=== PATIENT | male | born 1960 | race Caucasian/White ===

== ENCOUNTER 2017-12-17 08:31 | Day surgery (SDC) | payer OTHER ==
[2017-12-12 12:23] VITALS: BMI 28.5
[~2017-12-17 08:31] MED LIST: LACTATED RINGERS 1,000 ML IV SCH; MOXIFLOXACIN HCL 0.5% DROPS 3 ML BTL OP ONE; TETRACAINE 0.5% OPHTH (PF) DROPS 4 ML BTL OP ONE; TIMOLOL 0.5% OPHTH DROPS 5 ML BTL OP ONE
[2017-12-17] MEDS: CYCLOPENTOLATE 1% OPHTH SOLN 2 ML BTL OP ONE ×3 (09:50→10:03)
[2017-12-17] MEDS: PHENYLEPHRINE 2.5% OPHTH DRP 2ML OP NR ×3 (09:54→10:06)
[2017-12-17 10:01] VITALS: TEMP 98
[2017-12-17] MEDS ORDERED: LIDOCAINE 1% (PF) 10MG/ML VIAL SQ ONE (10:57)
[2017-12-17] MEDS ORDERED: BALANCED SALT IRRIG SOLN COMB2 15 ML IRRIG.SOLN INTRAOCULA ONE (10:57)
[2017-12-17] MEDS ORDERED: DUOVISC KIT (GREEN BOX) INTRAOCULA ONE (10:57)
[2017-12-17] MEDS ORDERED: EPINEPHrine (PF) 0.3 ML in BALANCED SALT IRRIG SOLN COMB2 500 ML IRRIGATION ONE (10:58)
[2017-12-17] MEDS ORDERED: fentaNYL (PF) 50 MCG/ML 2 ML AMP ONE (11:01)
[2017-12-17] MEDS ORDERED: MIDAZOLAM 2 MG/2 ML VIAL ONE (11:01)
[2017-12-17] MEDS ORDERED: TRIAMCINOLONE ACETONIDE (PF) 40 MG/ML 1ML VIAL INTRAOCULA ONE (11:21)
--- NOTE | 2017-12-17 11:34 | P.OP ---
Date of Procedure: 12/17/17 Preoperative Diagnosis: NA & posterior polar cataract Postoperative Diagnosis: same Procedure(s) Performed: PIOL, OS Implants: PCB00 21.00 Anesthesia: MAC Surgeon: César Azar Estimated Blood Loss (ml): 0 Pathology: none sent Condition: stable Disposition: same day Indications for Procedure: blurry vision Operative Findings: No complications
[2017-12-17 11:46] VITALS: RESP 18
[2017-12-17 12:00] VITALS: BP 149/91; PULSE 65
--- NOTE | 2017-12-17 19:44 | OP ---
OPERATIVE REPORT DATE OF SURGERY: 12/17/2017 PREOPERATIVE DIAGNOSIS:: Nuclear sclerosis and posterior polar cataract. POSTOPERATIVE DIAGNOSIS:: Same. OPERATION:: Clear cornea phacoemulsification of cataract and intraocular lens implant of the left eye. ESTIMATED BLOOD LOSS:: Zero. SPECIMEN TAKEN:: None. NARRATIVE:: After obtaining the appropriate consent, the patient was brought to the Operating Room where the patient was placed under cardiac monitoring and prepped and draped in the usual sterile manner. At the 5 o'clock position, a 15 degree super sharp blade was used to create a paracentesis followed by instillation of 1% Xylocaine MPF 50:50 mix with BSS into the anterior chamber. This was followed by Duovisc to stabilize the anterior chamber. At the 3 o'clock position, a self-sealing corneal flap incision was created using 2.8 mm keshav keratome. A cystatome was used to initiate a continuous tear capsulorrhexis which was completed with the Utrata forceps. A Binkhorst cannula was used to hydrodissect the lens nucleus followed by hydrodelineation. Phacoemulsification of the lens was performed utilizing phacochop in 2.55 Seconds at 6% power. The remaining cortical material was removed using the irrigation aspiration mode followed by additional 1% Xylocaine MPF into the anterior chamber followed by viscoelastic to stabilize the capsular bag. An GONSALO PCB00 21.0-diopter posterior chamber lens was placed into the capsular bag without difficulty. The remaining viscoelastic material was removed from the anterior chamber with the irrigation/aspiration. Balanced salt solution was used to normalize the intraocular pressure. The incision was checked for watertight integrity. The patient then received two drops of 0.5% timolol followed by two drops Vigamox, was lightly patched and shielded in the usual manner. There were no complications from the procedure. The patient tolerated the procedure well and was returned to recovery in good condition. MMODL / IJN: [id number] /
== END 2017-12-17 12:09 | disposition home or self-care (01) ==
LOC: OR 08:31
PROVIDERS: ATTEND Ophthalmology
DX: H25.12 Age-related nuclear cataract, left eye (principal); H25.042 Posterior subcapsular polar age-related cataract, left eye; H52.03 Hypermetropia, bilateral; H52.4 Presbyopia; I10 Essential (primary) hypertension; E78.00 Pure hypercholesterolemia, unspecified; H91.91 Unspecified hearing loss, right ear; M19.90 Unspecified osteoarthritis, unspecified site; Z86.73 Personal history of transient ischemic attack (TIA), and cerebral infarction without residual deficits; Z79.899 Other long term (current) drug therapy; F17.210 Nicotine dependence, cigarettes, uncomplicated
CPT/HCPCS: 66984; C1780; J2250; J0171; J3010; J3300; J2001

== ENCOUNTER 2018-01-28 07:49 | Day surgery (SDC) | payer OTHER ==
[2018-01-26 09:24] VITALS: BMI 27.1
[~2018-01-28 07:49] MED LIST changes: -LACTATED RINGERS 1,000 ML IV SCH
[2018-01-28] MEDS: CYCLOPENTOLATE 1% OPHTH SOLN 2 ML BTL OP ONE ×3 (08:40→08:51)
[2018-01-28] MEDS: PHENYLEPHRINE 2.5% OPHTH DRP 2ML OP NR ×3 (08:42→08:55)
[2018-01-28 08:50] VITALS: RESP 16; TEMP 98.4
[2018-01-28] MEDS: LACTATED RINGERS 1,000 ML IV SCH ×2 (09:03→09:38)
[2018-01-28] MEDS ORDERED: fentaNYL (PF) 50 MCG/ML 2 ML AMP ONE (09:39)
[2018-01-28] MEDS ORDERED: MIDAZOLAM 2 MG/2 ML VIAL ONE (09:39)
[2018-01-28] MEDS ORDERED: methylPREDNISolone SOD SUCCI 125 MG/2 ML VIAL ONE (09:39)
[2018-01-28] MEDS ORDERED: EPINEPHrine (PF) 0.3 ML in BALANCED SALT IRRIG SOLN COMB2 500 ML IRRIGATION ONE (09:49)
[2018-01-28] MEDS ORDERED: DUOVISC KIT (GREEN BOX) INTRAOCULA ONE (09:52)
[2018-01-28] MEDS ORDERED: BALANCED SALT IRRIG SOLN COMB2 15 ML IRRIG.SOLN IRRIGATION ONE (09:52)
[2018-01-28] MEDS ORDERED: CHONDROITIN-SOD HYALURONATE 1 EACH SYRINGE (0.75 ML) INTRAOCULA ONE (09:53)
[2018-01-28] MEDS ORDERED: LIDOCAINE 1% (PF) 10MG/ML VIAL MISCELLANE ONE (09:53)
[2018-01-28] MEDS ORDERED: TRIAMCINOLONE ACETONIDE (PF) 40 MG/ML 1ML VIAL INTRAOCULA ONE (10:09)
[2018-01-28] MEDS ORDERED: ACETYLCHOLINE CHLORIDE 10 MG/ML 2 ML KIT INTRAOCULA ONE (10:09)
[2018-01-28] MEDS ORDERED: HYALURONATE SODIUM INTRAOCULAR 1 EACH SYRINGE (12MG/ML) INTRAOCULA ONE (10:16)
[2018-01-28] MEDS ORDERED: FLUORESCEIN STRIPS 1 MG STRIP RIGHT EYE ONE (10:45)
--- NOTE | 2018-01-28 10:50 | P.OP ---
Date of Procedure: 01/28/18 Preoperative Diagnosis: post polar cataract right Postoperative Diagnosis: same with vitrectomy Procedure(s) Performed: PIOL and vitrectomy right Implants: [id number] Anesthesia: MAC Surgeon: César Azar Estimated Blood Loss (ml): 0 Pathology: none sent Condition: stable Disposition: same day Indications for Procedure: blurry vision Operative Findings: ruptured PC and vitrectomy to remove loose vitreous, lens particles inferior, will need retina to correct.
[2018-01-28 11:31] VITALS: BP 165/96; PULSE 61
--- NOTE | 2018-01-29 08:30 | OP ---
OPERATIVE REPORT DATE OF SURGERY: 01/28/2018. PROCEDURE: Phacoemulsification of cataract and intraocular lens implant of the right eye. PREOPERATIVE DIAGNOSIS: Posterior polar cataract with nuclear sclerosis. POSTOPERATIVE DIAGNOSIS: Posterior polar cataract with nuclear sclerosis with posterior capsular rent. SURGEON: Dr. César Azar. ANESTHESIA: Topical. ESTIMATED BLOOD LOSS: None. SPECIMEN TAKEN: None. NARRATIVE: After obtaining the appropriate consent, the patient was brought to the operating room there he was placed on cardiac monitoring, prepped and draped in the usual sterile manner. He was approached from his right temporal side and at the 11 o'clock position an MVR blade was used to create a paracentesis port. Through this opening 1% Xylocaine MPF 50:50 mix with balanced salt solution was injected into the anterior chamber. This was followed by stabilization of the anterior chamber with Viscoat. At the 9 o'clock position, a 2.5 mm keratome was used to create a self-sealing corneal flap incision. Through this opening a cystotome was introduced to begin a continuous tear capsulorrhexis which was completed using the Utrata forceps. Hydrodissection and hydrodelineation of the lens was carefully accomplished using balanced salt solution. It appeared that the lens was freely mobile following the hydrodissection without any suspicion of capsular tear. Phacoemulsification instrument was introduced into the eye and phacoemulsification of the lens utilizing phaco chop was initialized. Approximately 50% [address] way through the removal of the nuclear material, it was noted that there was marked laxity of the lens within the capsular bag appearing at about the 3 o'clock position. Attempts to salvage what became apparent as a horizontal rent in the posterior capsule was attempted using additional Viscoat to buoy the lens material into the anterior chamber. However, a large portion of the material did pass into the posterior chamber and became unreachable. At this point, Triesence was instilled into the front chamber of the eye to identify where the vitreous was and as it had been determined as expected that vitreous had entered into the anterior chamber. Therefore, a pars plana vitrectomy was then chosen to address the issue. At the 10 o'clock area approximately 3 mm posterior to the limbus, the MVR blade was used to create a sclerotomy into the posterior chamber of the eye after performing a small conjunctival takedown. Irrigating fluid was introduced through the temporal incision and a limited vitrectomy was performed within the vitreous cavity removing all remaining strands, which had presented themselves in the front chamber. A couple of attempts were made to retrieve the lost nuclear and cortical material with no success. Once the last of the vitreous had been removed from within the anterior chamber, vitrectomy was completed and the scleral incision was closed with 10-0 nylon along with closure of the conjunctiva at that point. Within the anterior chamber the eye remaining cortical material was carefully removed from between the leaflets of the anterior and posterior capsule. Again, a small amount of Tri essence was used to identify any remaining strands of vitreous of which there were none. Provisc was then used to stabilize the anterior chamber. The temporal incision was enlarged slightly and a [employer]ch [employer] Lomb LI61AO 20 diopter posterior chamber intraocular lens was then introduced into the anterior chamber and positioned with the haptics in the ciliary sulcus using a Sinskey hook. The lens optic was placed between the placed beneath the anterior capsule capsulorrhexis. Careful I and A was performed on the remaining viscoelastic within the anterior chamber and a temporal incision was closed with a single 10-0 nylon suture in an X fashion. The eye was brought to normal intraocular pressure through the paracentesis port with balanced salt solution. He received 2 drops of 0.5% timolol followed by 2 drops of Vigamox, was then lightly patched and shielded in the usual manner. There were no additional difficulties encountered during the procedure. He tolerated the procedure otherwise well and was returned to outpatient recovery in good condition. SARI / CURT: [id number] /
== END 2018-01-28 11:30 | disposition home or self-care (01) ==
LOC: OR 07:49
PROVIDERS: ATTEND Ophthalmology
DX: H26.8 Other specified cataract (principal); H52.4 Presbyopia; H52.03 Hypermetropia, bilateral; I10 Essential (primary) hypertension; E78.00 Pure hypercholesterolemia, unspecified; K21.9 Gastro-esophageal reflux disease without esophagitis; Z98.42 Cataract extraction status, left eye; G47.33 Obstructive sleep apnea (adult) (pediatric); Z96.1 Presence of intraocular lens; Z79.899 Other long term (current) drug therapy; Z86.73 Personal history of transient ischemic attack (TIA), and cerebral infarction without residual deficits; Z97.3 Presence of spectacles and contact lenses; F17.210 Nicotine dependence, cigarettes, uncomplicated
CPT/HCPCS: 66984; 67041; V2632; V2788; J2250; J2930; J0171; J3010; J3300; J2001

== ENCOUNTER → 2023-04-29 | Outpatient (CLI) | payer MEDICARE ==
--- NOTE | 2023-04-30 10:27 | CA ---
Transthoracic Echo Report Name: Andres Soares Age: 62 Gender: M : 1960 Exam Date: 04/29/2023 14:42 Exam Location: [facility] Ht (in): 71 Wt (lb): 220 Ordering Physician: Ervin May MD Attending/Referring Phys: [employer] Supervisor Brianda Contreras RDCS Procedure CPT: Indications: I51.7 Cardiomegaly Cardiac Hx: Hx of CABG and stents Technical Quality: Fair Contrast 1: Total Dose (mL): Contrast 2: Total Dose (mL): MEASUREMENTS (Male / Female) Normal Values 2D ECHO LV Diastolic Diameter PLAX 5.2 cm 4.2 - 5.9 / 3.9 - 5.3 cm LV Systolic Diameter PLAX 3.3 cm IVS Diastolic Thickness 1.4 cm 0.6 - 1.0 / 0.6 - 0.9 cm LVPW Diastolic Thickness 1.5 cm 0.6 - 1.0 / 0.6 - 0.9 cm LV Relative Wall Thickness 0.6 RV Internal Dim ED PLAX 3.3 cm LA Systolic Diameter LX 4.2 cm 3.0 - 4.0 / 2.7 - 3.8 cm LV Diastolic Volume MOD 4C 72.2 cm??? LV Systolic Volume MOD 4C 33.6 cm??? LV Ejection Fraction MOD 4C 53.4 % LV Cardiac Index MOD 4C 1413.8 cm???/min???m??? LV Diastolic Length 4C 7.3 cm LV Systolic Length 4C 6.5 cm LV Diastolic Volume MOD 2C 98.1 cm??? LV Systolic Volume MOD 2C 43.7 cm??? LV Ejection Fraction MOD 2C 55.4 % LV Cardiac Index MOD 2C 1996.9 cm???/min???m??? LV Diastolic Length 2C 6.9 cm LV Systolic Length 2C 6.9 cm LA Volume 73.3 cm??? 18 - 58 / 22 - 52 cm??? M-MODE Aortic Root Diameter MM 3.7 cm MV E Point Septal Separation 1.1 cm AV Cusp Separation MM 2.5 cm DOPPLER AV Peak Velocity 162.9 cm/s AV Peak Gradient 10.6 mmHg MV Area PHT 4.0 cm??? Mitral E Point Velocity 105.5 cm/s Mitral A Point Velocity 114.9 cm/s Mitral E to A Ratio 0.9 MV Deceleration Time 188.4 ms MV E' Velocity 9.4 cm/s Mitral E to MV E' Ratio 11.2 FINDINGS Left Ventricle Left ventricular ejection fraction is estimated at 55 %. Left ventricular cavity size normal. Normal left ventricular wall motion. Moderate concentric left ventricular hypertrophy. Right Ventricle Mild right ventricular dilatation. Unable to estimate the right ventricular systolic pressure. Right Atrium Normal right atrial size. Left Atrium Mildly increased left atrial diameter. Moderately increased left atrial volume. Mildly increased left atrial area. Mitral Valve Structurally normal mitral valve. Trace mitral regurgitation. Aortic Valve Trileaflet aortic valve. No aortic valve stenosis or regurgitation. Tricuspid Valve Structurally normal tricuspid valve. No tricuspid regurgitation. Pulmonic Valve Pulmonic valve not well visualized. No pulmonic regurgitation. Pericardium Normal pericardium. No pericardial effusion. Aorta Normal size aortic root and proximal ascending aorta. CONCLUSIONS Normal LV size and systolic function with [id number] concentric LVH. No significant abnormality in the Doppler exam. No pericardial effusion Previewed by: Dr. Olive Murphy MD (Electronically Signed) Final Date: 30 April 2023 10:26
== END | disposition home or self-care (01) ==
LOC: RADECHMAIN 14:33
PROVIDERS: ATTEND Family Medicine
DX: I51.7 Cardiomegaly (principal)
CPT/HCPCS: 93306

== ENCOUNTER 2023-05-30 13:00 | Emergency (ER) | payer MEDICARE ==
[2023-05-30 13:51] VITALS: RESP 18
--- NOTE | 2023-05-30 14:21 | ED ---
Lower Extremity Injury HPI - General Chief Complaint: Extremity Injury, Lower Stated Complaint: Cellulitis Time Seen by Provider: 05/30/23 14:00 Source: patient, RN notes reviewed Mode of arrival: ambulatory Limitations: no limitations - History of Present Illness Initial Comments: 62-year-old male presents emergency Department from urgent care to complaint of bilateral lower extremity cellulitis. Patient states that his been a recurrent issue. Patient states that he has had ongoing swelling. Patient was seen at urgent care a few weeks ago who told he had pneumonia and enlarged heart. He was sent for an outpatient echocardiogram. He denies any chest pain currently. He doesn't is a known diabetic on metformin. Patient denies any fevers or c hills denies any significant pain of his lower extremities. - Related Data Home Medications Medication Instructions Recorded Confirmed Bisoprolol-Hctz 10-6.25 mg [Ziac 1 tab PO DAILY 12/12/17 05/30/23 10-6.25] Citalopram Hydrobromide [CeleXA] 20 mg PO DAILY 05/30/23 05/30/23 Furosemide [Lasix] 20 mg PO BID 05/30/23 05/30/23 Losartan Potassium 50 mg PO DAILY 05/30/23 05/30/23 Potassium Chloride ER [K-Dur 20] 20 meq PO DAILY 05/30/23 05/30/23 Rosuvastatin Calcium 5 mg PO DAILY 05/30/23 05/30/23 Sildenafil Citrate [Sildenafil] 20 mg PO DAILY PRN 05/30/23 05/30/23 metFORMIN HCL [Glucophage] 500 mg PO PC-BID 05/30/23 05/30/23 Previous Rx's Medication Instructions Recorded Cephalexin [Keflex] 500 mg PO Q6HR #40 cap 05/30/23 Allergies Allergy/AdvReac Type Severity Reaction Status Date / Time No Known Allergies Allergy Verified 05/30/23 14:56 Review of Systems ROS Statement: Those systems with pertinent positive or pertinent negative responses have been documented in the HPI. ROS Other: All systems not noted in ROS Statement are negative. Past Medical History Past Medical History: Eye Disorder, Hypertension Additional Past Medical History / Comment(s): . History of Any Multi-Drug Resistant Organisms: None Reported Past Surgical History: Back Surgery Additional Past Surgical History / Comment(s): 3 back surgeries, left cataract Past Anesthesia/Blood Transfusion Reactions: Previous Problems w/ Anesthesia Additional Past Anesthesia/Blood Transfusion Reaction / Comment(s): diff. to wake up one time with back surgery Past Psychological History: Depression Smoking Status: Current every day smoker Past Alcohol Use History: Daily Past Drug Use History: None Reported - Past Family History Mother Family Medical History: No Reported History General Exam Limitations: no limitations General appearance: alert, in no apparent distress Head exam: Present: atraumatic, normocephalic, normal inspection Eye exam: Present: normal appearance, PERRL, EOMI. Absent: scleral icterus, conjunctival injection, periorbital swelling ENT exam: Present: normal exam, mucous membranes moist Neck exam: Present: normal inspection, full ROM. Absent: tenderness, meningismus, lymphadenopathy Respiratory exam: Present: normal lung sounds bilaterally. Absent: respiratory distress, wheezes, rales, rhonchi, stridor Cardiovascular Exam: Present: regular rate, normal rhythm, normal heart sounds. Absent: systolic murmur, diastolic murmur, rubs, gallop, clicks Extremities exam: Present: pedal edema (Bilateral with erythema noted, small areas of blistering), other (Lower extremity pulses equal bilaterally) Course Vital Signs 05/30/23 05/30/23 05/30/23 13:48 15:08 17:09 Temperature 98.2 F 98.4 F Pulse Rate 69 68 66 Respiratory 18 18 18 Rate Blood Pressure 113/66 131/85 145/89 O2 Sat by Pulse 95 96 94 L Oximetry Medical Decision Making - Medical Decision Making Was pt. sent in by a medical professional or institution (, PA, CAN DRAGGER, urgent care, hospital, or senior care...) When possible be specific @ -Urgent care Did you speak to anyone other than the patient for history (EMS, parent, family, police, friend...)? What history was obtained from this source @ -No Did you review nursing and triage notes (agree or disagree)? Why? @ -I reviewed and agree with nursing and triage notes Were old charts reviewed (outside hosp., previous admission, EMS record, old EKG, old radiological studies, urgent care reports/EKG's, senior care records)? Report findings @ -No old charts were reviewed Differential Diagnosis (chest pain, altered mental status, abdominal pain women, abdominal pain men, vaginal bleeding, weakness, fever, dyspnea, syncope, headache, dizziness, GI bleed, back pain, seizure, CVA, palpatations, mental health, musculoskeletal)? @ -Cellulitis, peripheral vascular disease, pedal edema EKG interpreted by me (3pts min.). @ -None X-rays interpreted by me (1pt min.). @ -None done CT interpreted by me (1pt min.). @ -None done U/S interpreted by me (1pt. min.). @ -None done What testing was considered but not performed or refused? (CT, X-rays, U/S, labs)? Why? @ -None What meds were considered but not given or refused? Why? @ -None Did you discuss the management of the patient with other professionals (professionals i.e. , PA, CAN DRAGGER, lab, RT, psych nurse, director social service, stack attendant, teacher, assurance officer, rn case manager)? Give summary @ -No Was smoking cessation discussed for >3mins.? @ -No Was critical care preformed (if so, how long)? @ -No Were there social determinants of health that impacted care today? How? (Homelessness, low income, unemployed, alcoholism, drug addiction, transportation, low edu. Level, literacy, decrease access to med. care, assisted, rehab)? @ -No Was there de-escalation of care discussed even if they declined (Discuss DNR or withdrawal of care, Hospice)? DNR status @ -No What co-morbidities impacted this encounter? (DM, HTN, Smoking, COPD, CAD, Cancer, CVA, ARF, Chemo, Hep., AIDS, mental health diagnosis, sleep apnea, morb id obesity)? @ -Hypertension Was patient admitted / discharged? Hospital course, mention meds given and route, prescriptions, significant lab abnormalities, going to OR and other pertinent info. @ -Discharge patient was given option to be admitted for cellulitis with MiraLAX acidosis. Patient states that he wants to attempt outpatient treatment I did recommend and follow-up in 24 hours and return for any worsening change in symptoms. Undiagnosed new problem with uncertain prognosis? @ -No Drug Therapy requiring intensive monitoring for toxicity (Heparin, Nitro, Insulin, Cardizem)? @ -No Were any procedures done? @ -No Diagnosis/symptom? @ -Cellulitis Acute, or Chronic, or Acute on Chronic? @ -Acute Uncomplicated (without systemic symptoms) or Complicated (systemic symptoms)? @ -Complicated Side effects of treatment? @ -No Exacerbation, Progression, or Severe Exacerbation? @ -No Poses a threat to life or bodily function? How? (Chest pain, [place], [place], pneumonia, PE, COPD, DKA, ARF, appy, cholecystitis, CVA, Diverticulitis, Homicidal, Suicidal, threat to staff... and all critical care pts) @ -No - Lab Data Result diagrams: 05/30/23 15:35 05/30/23 14:52 Lab Results 05/30/23 05/30/23 05/30/23 Range/Units 14:52 14:52 15:35 WBC 8.0 (3.8-10.6) k/uL RBC 5.00 (4.30-5.90) m/uL Hgb 17.7 H (13.0-17.5) gm/dL Hct 50.3 (39.0-53.0) % MCV 100.6 H (80.0-100.0) fL MCH 35.5 H (25.0-35.0) pg MCHC 35.3 (31.0-37.0) g/dL RDW 14.3 (11.5-15.5) % Plt Count 172 (150-450) k/uL MPV 8.2 Neutrophils % 64 % Lymphocytes % 23 % Monocytes % 8 % Eosinophils % 3 % Basophils % 1 % Neutrophils # 5.1 (1.3-7.7) k/uL Lymphocytes # 1.8 (1.0-4.8) k/uL Monocytes # 0.6 (0-1.0) k/uL Eosinophils # 0.3 (0-0.7) k/uL Basophils # 0.1 (0-0.2) k/uL Macrocytosis Slight Sodium 128 L (137-145) mmol/L Potassium 3.7 (3.5-5.1) mmol/L Chloride 83 L (98-107) mmol/L Carbon Dioxide 33 H (22-30) mmol/L Anion Gap 12 mmol/L BUN 19 (9-20) mg/dL Creatinine 1.53 H (0.66-1.25) mg/dL Est GFR (CKD-EPI)AfAm 56 (>60 ml/min/1.73 sqM) Est GFR (CKD-EPI)NonAf 48 (>60 ml/min/1.73 sqM) Glucose 98 (74-99) mg/dL Lactic Ac Sepsis Rflx Plasma Lactic Acid Danny 3.5 H* (0.7-2.0) mmol/L Calcium 9.6 (8.4-10.2) mg/dL Total Bilirubin 1.5 H (0.2-1.3) mg/dL AST 54 (17-59) U/L ALT 41 (4-49) U/L Alkaline Phosphatase 145 H (38-126) U/L NT-Pro-B Natriuret Pep 623 pg/mL Total Protein 7.6 (6.3-8.2) g/dL Albumin 4.4 (3.5-5.0) g/dL 05/30/23 Range/Units 16:15 WBC (3.8-10.6) k/uL RBC (4.30-5.90) m/uL Hgb (13.0-17.5) gm/dL Hct (39.0-53.0) % MCV (80.0-100.0) fL MCH (25.0-35.0) pg MCHC (31.0-37.0) g/dL RDW (11.5-15.5) % Plt Count (150-450) k/uL MPV Neutrophils % % Lymphocytes % % Monocytes % % Eosinophils % % Basophils % % Neutrophils # (1.3-7.7) k/uL Lymphocytes # (1.0-4.8) k/uL Monocytes # (0-1.0) k/uL Eosinophils # (0-0.7) k/uL Basophils # (0-0.2) k/uL Macrocytosis Sodium (137-145) mmol/L Potassium (3.5-5.1) mmol/L Chloride (98-107) mmol/L Carbon Dioxide (22-30) mmol/L Anion Gap mmol/L BUN (9-20) mg/dL Creatinine (0.66-1.25) mg/dL Est GFR (CKD-EPI)AfAm (>60 ml/min/1.73 sqM) Est GFR (CKD-EPI)NonAf (>60 ml/min/1.73 sqM) Glucose (74-99) mg/dL Lactic Ac Sepsis Rflx Y Plasma Lactic Acid Danny (0.7-2.0) mmol/L Calcium (8.4-10.2) mg/dL Total Bilirubin (0.2-1.3) mg/dL AST (17-59) U/L ALT (4-49) U/L Alkaline Phosphatase (38-126) U/L NT-Pro-B Natriuret Pep pg/mL Total Protein (6.3-8.2) g/dL Albumin (3.5-5.0) g/dL Disposition Clinical Impression: Bilateral lower leg cellulitis Disposition: HOME SELF-CARE Condition: Stable Instructions (If sedation given, give patient instructions): Cellulitis (ED) Additional Instructions: Please return to the Emergency Department if symptoms worsen or any other concerns. Prescriptions: Cephalexin [Keflex] 500 mg PO Q6HR #40 cap Is patient prescribed a controlled substance at d/c from ED?: No Referrals: Nonstaff,Physician [REFERRING] - 1-2 days Time of Disposition: 17:16
[2023-05-30 15:50] LABS: Basophils # (A) 0.1 k/uL (0-0.2); Basophils % (A) 1 %; Eosinophils # (A) 0.3 k/uL (0-0.7); Eosinophils % (A) 3 %; HCT 50.3 % (39.0-53.0); HGB 17.7 gm/dL (13.0-17.5); Lymphocytes # (A) 1.8 k/uL (1.0-4.8); Lymphocytes % (A) 23 %; MCH 35.5 pg (25.0-35.0); MCHC 35.3 g/dL (31.0-37.0); MCV 100.6 fL (80.0-100.0); Macrocytosis Slight; Mean Platelet Volume 8.2; Monocytes # (A) 0.6 k/uL (0-1.0); Monocytes % (A) 8 %; Neutrophils # (A) 5.1 k/uL (1.3-7.7); Neutrophils % (A) 64 %; Platelet Count 172 k/uL (150-450); RDW 14.3 % (11.5-15.5)
[2023-05-30 15:55] LABS: ALT 41 U/L (4-49); African American GFR (CKD) 56 (>60 ml/min/1.73 sqM); Albumin 4.4 g/dL (3.5-5.0); Anion Gap 12 mmol/L; Blood Urea Nitrogen 19 mg/dL (9-20); Calcium 9.6 mg/dL (8.4-10.2); Carbon Dioxide 33 mmol/L (22-30); Chloride 83 mmol/L (98-107); Glucose 98 mg/dL (74-99); Non-African American GFR(CKD) 48 (>60 ml/min/1.73 sqM); Sodium 128 mmol/L (137-145); Total Bilirubin 1.5 mg/dL (0.2-1.3); Total Protein 7.6 g/dL (6.3-8.2)
[2023-05-30 16:03] LABS: NT-Pro-B-Type Natriuretic Pept 623 pg/mL
[2023-05-30 16:21] LABS: AST 54 U/L (17-59); Alkaline Phosphatase 145 U/L (38-126); Potassium 3.7 mmol/L (3.5-5.1)
[2023-05-30] MEDS ORDERED: cefTRIAXone IN SWFI 1,000 MG/10 ML SYRINGE IVP STA (17:15)
[2023-05-30 17:21] VITALS: BP 145/89; PULSE 66; TEMP 98.4
== END 2023-05-30 18:05 | disposition home or self-care (01) ==
LOC: EC 13:00
DX: L03.116 Cellulitis of left lower limb (principal); L03.115 Cellulitis of right lower limb; I10 Essential (primary) hypertension; F32.A Depression, unspecified; F17.200 Nicotine dependence, unspecified, uncomplicated; Z79.899 Other long term (current) drug therapy
CPT/HCPCS: 96374 ×2; 99283 ×2; 36415; 83880; 80053; 83605; 85025; J0696

== ENCOUNTER 2023-07-06 14:50 | Inpatient (IN) | payer MEDICARE ==
--- NOTE | 2023-07-06 15:18 | ED ---
SOB HPI - General Chief Complaint: Dizziness Stated Complaint: shaky Time Seen by Provider: 07/06/23 15:03 Source: patient, RN notes reviewed Mode of arrival: wheelchair Limitations: no limitations - History of Present Illness Initial Comments: Patient is 62-year-old male presenting to the emergency room with complaints of shortness of breath, nonproductive cough, dry mouth and brain fog with intermittent dizziness all ongoing throughout the day today and progressively worsening. He is a pack-a-day smoker with a history of COPD. He states that he used to albuterol at home approximately 3 hours ago with a slight temporary improvement in symptoms. He reports that he has only been able to smoke a few cigarettes today. He denies any chest pain, abdominal pain, nausea, vomiting, diarrhea, headache, fevers or chills. His past medical history as listed below was reviewed and updated. - Related Data Home Medications Medication Instructions Recorded Confirmed Bisoprolol-Hctz 10-6.25 mg [Ziac 1 tab PO DAILY 12/12/17 05/30/23 10-6.25] Citalopram Hydrobromide [CeleXA] 20 mg PO DAILY 05/30/23 05/30/23 Furosemide [Lasix] 20 mg PO BID 05/30/23 05/30/23 Losartan Potassium 50 mg PO DAILY 05/30/23 05/30/23 Potassium Chloride ER [K-Dur 20] 20 meq PO DAILY 05/30/23 05/30/23 Rosuvastatin Calcium 5 mg PO DAILY 05/30/23 05/30/23 Sildenafil Citrate [Sildenafil] 20 mg PO DAILY PRN 05/30/23 05/30/23 metFORMIN HCL [Glucophage] 500 mg PO PC-BID 05/30/23 05/30/23 Previous Rx's Medication Instructions Recorded Cephalexin [Keflex] 500 mg PO Q6HR #40 cap 05/30/23 Allergies Allergy/AdvReac Type Severity Reaction Status Date / Time No Known Allergies Allergy Verified 07/06/23 14:59 Review of Systems ROS Statement: Those systems with pertinent positive or pertinent negative responses have been documented in the HPI. ROS Other: All systems not noted in ROS Statement are negative. Past Medical History Past Medical History: COPD, Diabetes Mellitus, Eye Disorder, Hyperlipidemia, Hypertension Additional Past Medical History / Comment(s): Bilateral lower extremity cellulitis. History of Any Multi-Drug Resistant Organisms: None Reported Past Surgical History: Back Surgery Additional Past Surgical History / Comment(s): 3 back surgeries, left cataract Past Anesthesia/Blood Transfusion Reactions: Previous Problems w/ Anesthesia Additional Past Anesthesia/Blood Transfusion Reaction / Comment(s): diff. to wake up one time with back surgery Past Psychological History: Depression Smoking Status: Current every day smoker Past Alcohol Use History: Daily Past Drug Use History: Marijuana - Past Family History Mother Family Medical History: No Reported History General Exam Limitations: no limitations General appearance: alert, in no apparent distress Head exam: Present: atraumatic, normocephalic, normal inspection Eye exam: Present: normal appearance, PERRL, EOMI. Absent: scleral icterus, conjunctival injection, periorbital swelling ENT exam: Present: mucous membranes dry Neck exam: Present: normal inspection, full ROM Respiratory exam: Present: wheezes (Expiratory), rales (Left lower lobe), decreased breath sounds. Absent: respiratory distress, rhonchi, stridor Cardiovascular Exam: Present: regular rate, normal rhythm, normal heart sounds. Absent: systolic murmur, diastolic murmur, rubs, gallop, clicks GI/Abdominal exam: Present: soft, normal bowel sounds, other (Rounded). Absent: distended, tenderness, guarding, rebound, rigid Extremities exam: Present: pedal edema (Bilateral lower extremity edema +2 with discolored lower extremities and multiple healed vascular ulcers) Back exam: Present: normal inspection Neurological exam: Present: alert, oriented X3, CN II-XII intact Psychiatric exam: Present: normal affect, normal mood Skin exam: Present: other (Discolored lower extremities at as indicated above) Course Vital Signs 07/06/23 07/06/23 07/06/23 14:55 15:40 16:37 Temperature 98.3 F Pulse Rate 73 73 84 Respiratory 20 18 Rate Blood Pressure 143/78 156/94 O2 Sat by Pulse 91 L 97 Oximetry 07/06/23 16:46 Temperature Pulse Rate 86 Respiratory Rate Blood Pressure O2 Sat by Pulse Oximetry Medical Decision Making - Medical Decision Making Was pt. sent in by a medical professional or institution (, PA, RADIATOR FITTER, urgent care, hospital, or halfway...) When possible be specific @ -No Did you speak to anyone other than the patient for history (EMS, parent, family, police, friend...)? What history was obtained from this source @ -No Did you review nursing and triage notes (agree or disagree)? Why? @ -I reviewed and agree with nursing and triage notes Were old charts reviewed (outside hosp., previous admission, EMS record, old EKG, old radiological studies, urgent care reports/EKG's, halfway records)? Report findings @ -Yes, prior records on file including echocardiogram 04/29/2023 reviewed. Differential Diagnosis (chest pain, altered mental status, abdominal pain women, abdominal pain men, vaginal bleeding, weakness, fever, dyspnea, syncope, headache, dizziness, GI bleed, back pain, seizure, CVA, palpatations, mental health, musculoskeletal)? @ -Differential Dyspnea: Coronary syndrome, arrhythmia, tamponade, asthma, COPD, pulmonary embolism, pneumonia, pneumothorax, pulmonary effusion, anaphylaxis, diabetic ketoacidosis, flailed chest, pulmonary contusion, diaphragmatic rupture, anemia, neuromuscular, this is not meant to be an all-inclusive list. EKG interpreted by me (3pts min.). @ -Sinus rhythm, ventricular rate 60 diabetes., ID interval 6 ms, QRS duration 90 ms, QT/QTC 429/449 ms, PRT axes 68, 139, 80 X-rays interpreted by me (1pt min.). @ -Chest x-ray two-view: Pulmonary vascular congestion without focal consolidation consistent with congestive heart failure. CT interpreted by me (1pt min.). @ -None done U/S interpreted by me (1pt. min.). @ -None done What testing was considered but not performed or refused? (CT, X-rays, U/S, labs)? Why? @ -None What meds were considered but not given or refused? Why? @ -None Did you discuss the management of the patient with other professionals ([place] , PA, RADIATOR FITTER, lab, RT, psych nurse, social professionals, reel winder, teacher, regulatory compliance officer, case manager specialist)? Give summary @ -No Was smoking cessation discussed for >3mins.? @ -I discussed smoking cessation for greater than 3 minutes. The risk of smoking were discussed with the patient including but not limited to risks of cancer, stroke, coronary artery disease and COPD. Also discussed with patient were multiple methods of quitting smoking. Lastly we discussed the financial cost of smoking. Was critical care preformed (if so, how long)? @ -No Were there social determinants of health that impacted care today? How? (Homelessness, low income, unemployed, alcoholism, drug addiction, transportation, low edu. Level, literacy, decrease access to med. care, fdc, rehab)? @ -Alcoholism Was there de-escalation of care discussed even if they declined (Discuss DNR or withdrawal of care, Hospice)? DNR status @ -No What co-morbidities impacted this encounter? (DM, HTN, Smoking, COPD, CAD, Cancer, CVA, ARF, Chemo, Hep., AIDS, mental health diagnosis, sleep apnea, morbid obesity)? @ -None Was patient admitted / discharged? Hospital course, mention meds given and rout e, prescriptions, significant lab abnormalities, going to OR and other pertinent info. @ -62-year-old male presenting to the emergency room with complaints of shortness of breath, nonproductive cough, dry mouth and brain fog with intermittent dizziness all ongoing throughout the day today and progressively worsening. He is a pack-a-day smoker with a history of COPD. He states that he used to albuterol at home approximately 3 hours ago with a slight temporary improvement in symptoms. Will start workup for dyspnea and brain 5 with EKG, chest x-ray, for Plavix for COVID, flu and RSV, CMP, CBC, d-dimer, proBNP, magnesium, lactic acid and troponin. 2 L nasal cannula applied with improved saturations to 96% on 2 L of from 87% on room air. Will give 1 albuterol treat ment now and monitor response will avoid steroids in the setting of diabetes. EKG shows sinus rhythm with left ventricular hypertrophy known on echocardiogram. Chest x-ray shows pulmonary vascular congestion consistent with congestive heart failure with correlating proBNP of 3330. Troponin negative. Alkaline phosphatase elevated at 142 AST and MALT normal with elevated total bilirubin at 1.5. Electrolyte derangement noted with a magnesium of 1.0, chloride of 79, carbon dioxide of 37, anion gap of 5, sodium of 121 and normal potassium. Lactic acid normal. Calcium normal. Viral swabbing for COVID, RSV and influenza all negative. After laboratories results further discussion with patient regarding alcohol intake revealed daily alcohol abuse of approximately 1 pint a day. Extended discussion regarding need for alcohol cessation with patient and brother at bedside. Advise recommended admission for congestive heart failure and electrolyte derangement. No evidence of alcohol withdrawals at this time however will admit for congestive heart failure and hyponatremia with [facility] protocol in addition to admission orders for congestive heart failure with Lasix 40 mg IV, consult to cardiology, gentle IV hydration for hyponatremia and 2 g of magnesium for hypomagnesemia. Will defer echocardiogram due to previously having in the last 6 months. 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 Will admit patient in stable condition to medical surgical unit for congestive heart failure and hyponatremia to EM services for further evaluation and treatment. Undiagnosed new problem with uncertain prognosis? @ -No Drug Therapy requiring intensive monitoring for toxicity (Heparin, Nitro, Insulin, Cardizem)? @ -No Were any procedures done? @ -No Diagnosis/symptom? @ -Congestive heart failure Acute, or Chronic, or Acute on Chronic? @ -Acute on chronic Uncomplicated (without systemic symptoms) or Complicated (systemic symptoms)? @ -Complicated Side effects of treatment? @ -No Exacerbation, Progression, or Severe Exacerbation? @ -No Poses a threat to life or bodily function? How? (Chest pain, USA, OR, pneumonia, PE, COPD, DKA, ARF, appy, cholecystitis, CVA, Diverticulitis, Homicidal, Suicidal, threat to staff... and all critical care pts) @ -Yes, at risk for worsening volume overload, respiratory failure and respiratory arrest. Diagnosis/symptom? @ -Hyponatremia Acute, or Chronic, or Acute on Chronic? @ -Acute Uncomplicated (without systemic symptoms) or Complicated (systemic symptoms)? @ -Uncomplicated Side effects of treatment? @ -none Exacerbation, Progression, or Severe Exacerbation] @ -no Poses a threat to life or bodily function? @ -Yes, at risk for further electrolyte derailment seizures, and . Case discussed with Dr. Howell. - Lab Data Result diagrams: 07/06/23 15:53 07/06/23 15:53 Lab Results 07/06/23 07/06/23 07/06/23 Range/Units 15:49 15:53 15:53 WBC 8.6 (3.8-10.6) k/uL RBC 4.82 (4.30-5.90) m/uL Hgb 16.7 (13.0-17.5) gm/dL Hct 49.3 (39.0-53.0) % MCV 102.3 H (80.0-100.0) fL MCH 34.7 (25.0-35.0) pg MCHC 34.0 (31.0-37.0) g/dL RDW 14.5 (11.5-15.5) % Plt Count 207 (150-450) k/uL MPV 8.0 Neutrophils % 67 % Lymphocytes % 22 % Monocytes % 6 % Eosinophils % 3 % Basophils % 1 % Neutrophils # 5.8 (1.3-7.7) k/uL Lymphocytes # 1.9 (1.0-4.8) k/uL Monocytes # 0.5 (0-1.0) k/uL Eosinophils # 0.2 (0-0.7) k/uL Basophils # 0.1 (0-0.2) k/uL Macrocytosis Slight PT 11.8 (9.0-12.0) sec INR 1.1 (<1.2) APTT 25.3 (22.0-30.0) sec D-Dimer 0.32 (<0.60) mg/L FEU Sodium (137-145) mmol/L Potassium (3.5-5.1) mmol/L Chloride (98-107) mmol/L Carbon Dioxide (22-30) mmol/L Anion Gap mmol/L BUN (9-20) mg/dL Creatinine (0.66-1.25) mg/dL Est GFR (CKD-EPI)AfAm (>60 ml/min/1.73 sqM) Est GFR (CKD-EPI)NonAf (>60 ml/min/1.73 sqM) Glucose (74-99) mg/dL Plasma Lactic Acid Danny (0.7-2.0) mmol/L Calcium (8.4-10.2) mg/dL Magnesium (1.6-2.3) mg/dL Total Bilirubin (0.2-1.3) mg/dL AST (17-59) U/L ALT (4-49) U/L Alkaline Phosphatase (38-126) U/L Troponin I (0.000-0.034) ng/mL NT-Pro-B Natriuret Pep pg/mL Total Protein (6.3-8.2) g/dL Albumin (3.5-5.0) g/dL Influenza Type A (PCR) Not Detected (Not Detectd) Influenza Type B (PCR) Not Detected (Not Detectd) RSV (PCR) Not Detected (Not Detectd) SARS-CoV-2 (PCR) Not Detected (Not Detectd) 07/06/23 07/06/23 07/06/23 Range/Units 15:53 15:53 15:53 WBC (3.8-10.6) k/uL RBC (4.30-5.90) m/uL Hgb (13.0-17.5) gm/dL Hct (39.0-53.0) % MCV (80.0-100.0) fL MCH (25.0-35.0) pg MCHC (31.0-37.0) g/dL RDW (11.5-15.5) % Plt Count (150-450) k/uL MPV Neutrophils % % Lymphocytes % % Monocytes % % Eosinophils % % Basophils % % Neutrophils # (1.3-7.7) k/uL Lymphocytes # (1.0-4.8) k/uL Monocytes # (0-1.0) k/uL Eosinophils # (0-0.7) k/uL Basophils # (0-0.2) k/uL Macrocytosis PT (9.0-12.0) sec INR (<1.2) APTT (22.0-30.0) sec D-Dimer (<0.60) mg/L FEU Sodium 121 L (137-145) mmol/L Potassium 4.2 (3.5-5.1) mmol/L Chloride 79 L (98-107) mmol/L Carbon Dioxide 37 H (22-30) mmol/L Anion Gap 5 mmol/L BUN 12 (9-20) mg/dL Creatinine 0.66 (0.66-1.25) mg/dL Est GFR (CKD-EPI)AfAm >90 (>60 ml/min/1.73 sqM) Est GFR (CKD-EPI)NonAf >90 (>60 ml/min/1.73 sqM) Glucose 94 (74-99) mg/dL Plasma Lactic Acid Danny 1.6 (0.7-2.0) mmol/L Calcium 8.5 (8.4-10.2) mg/dL Magnesium 1.0 L (1.6-2.3) mg/dL Total Bilirubin 1.5 H (0.2-1.3) mg/dL AST 54 (17-59) U/L ALT 29 (4-49) U/L Alkaline Phosphatase 142 H (38-126) U/L Troponin I <0.012 (0.000-0.034) ng/mL NT-Pro-B Natriuret Pep 3330 pg/mL Total Protein 6.9 (6.3-8.2) g/dL Albumin 4.2 (3.5-5.0) g/dL Influenza Type A (PCR) (Not Detectd) Influenza Type B (PCR) (Not Detectd) RSV (PCR) (Not Detectd) SARS-CoV-2 (PCR) (Not Detectd) - Radiology Data Radiology results: report reviewed, image reviewed Disposition Clinical Impression: Acute on chronic congestive heart failure, Hyponatremia, Hypomagnesemia, Alcohol abuse Disposition: ADMITTED IP TO THIS [facility] Condition: Stable Referrals: Nonstaff,Physician [REFERRING] - 1-2 days Time of Disposition: 17:28
[2023-07-06] MEDS ORDERED: ALBUTEROL NEBULIZED 2.5 MG/3 ML INHALATION STA (15:51)
[2023-07-06 16:07] LABS: Basophils # (A) 0.1 k/uL (0-0.2); Basophils % (A) 1 %; Eosinophils # (A) 0.2 k/uL (0-0.7); Eosinophils % (A) 3 %; HCT 49.3 % (39.0-53.0); HGB 16.7 gm/dL (13.0-17.5); Lymphocytes # (A) 1.9 k/uL (1.0-4.8); Lymphocytes % (A) 22 %; MCH 34.7 pg (25.0-35.0); MCV 102.3 fL (80.0-100.0); Macrocytosis Slight; Monocytes # (A) 0.5 k/uL (0-1.0); Monocytes % (A) 6 %; Neutrophils # (A) 5.8 k/uL (1.3-7.7); Neutrophils % (A) 67 %; Platelet Count 207 k/uL (150-450); RBC 4.82 m/uL (4.30-5.90); RDW 14.5 % (11.5-15.5); WBC 8.6 k/uL (3.8-10.6)
[2023-07-06 16:20] LABS: INR 1.1 (<1.2); Partial Thromboplastin Time 25.3 sec (22.0-30.0); Prothrombin Time 11.8 sec (9.0-12.0)
[2023-07-06 16:24] LABS: ALT 29 U/L (4-49); AST 54 U/L (17-59); African American GFR (CKD) >90 (>60 ml/min/1.73 sqM); Albumin 4.2 g/dL (3.5-5.0); Alkaline Phosphatase 142 U/L (38-126); Anion Gap 5 mmol/L; Blood Urea Nitrogen 12 mg/dL (9-20); Calcium 8.5 mg/dL (8.4-10.2); Carbon Dioxide 37 mmol/L (22-30); Chloride 79 mmol/L (98-107); Glucose 94 mg/dL (74-99); Non-African American GFR(CKD) >90 (>60 ml/min/1.73 sqM); Potassium 4.2 mmol/L (3.5-5.1); Sodium 121 mmol/L (137-145); Total Bilirubin 1.5 mg/dL (0.2-1.3); Total Protein 6.9 g/dL (6.3-8.2)
--- NOTE | 2023-07-06 16:31 | XR ---
EXAMINATION TYPE: XR chest 2V DATE OF EXAM: 07/06/2023 4:13 PM COMPARISON: None TECHNIQUE: XR chest 2V Frontal and lateral views of the chest. CLINICAL INDICATION:Male, 62 years old with history of difficulty breathing; FINDINGS: Lungs/Pleura: There is no evidence of pleural effusion, focal consolidation, or pneumothorax. Pulmonary vascularity: Pulmonary vascular congestion. Heart/mediastinum: Cardiomediastinal silhouette is enlarged and stable. Musculoskeletal: No acute osseous pathology. IMPRESSION: Cardiomegaly and mild pulmonary vascular congestion. Correlate with BNP for congestive heart failure.
[2023-07-06 16:32] LABS: NT-Pro-B-Type Natriuretic Pept 3330 pg/mL
[2023-07-06] MEDS ORDERED: ONDANSETRON 4 MG/2 ML VIAL IVP PRN (17:06)
[2023-07-06] MEDS ORDERED: NALOXONE 0.4 MG/ML 1 ML VIAL IV PRN (17:06)
[2023-07-06] MEDS ORDERED: ACETAMINOPHEN TAB 325 MG TAB PO PRN (17:06)
[2023-07-06] MEDS ORDERED: SODIUM CHLORIDE 0.9% 1,000 ML IV SCH (17:15)
[2023-07-06] MEDS ORDERED: THIAMINE 100 MG/ML 2 ML VIAL IM STA (17:21)
[2023-07-06] MEDS: MAGNESIUM SULFATE-D5W PMX 1 GM in DEXTROSE/WATER 1 100ML.BAG IVPB SCH ×2 (17:52→18:29)
[2023-07-06] MEDS: FUROSEMIDE 10 MG/ML 4 ML VIAL IV SCH (18:29)
[2023-07-06] MEDS ORDERED: traZODone HCL 50 MG TAB PO PRN (21:12)
--- NOTE | 2023-07-06 21:16 | P.HPIM ---
History of Present Illness H&P Date: 07/06/23 Chief Complaint: shortness of breath 62-year-old male presenting to the emergency room with complaints of shortness of breath, nonproductive cough, dry mouth and brain fog with intermittent dizziness all ongoing throughout the day today and progressively worsening. He is a pack-a-day smoker with a history of COPD. He states that he used to albuterol at home approximately 3 hours ago with a slight temporary improvement in symptoms. He reports that he has only been able to smoke a few cigarettes today. He denies any chest pain, abdominal pain, nausea, vomiting, diarrhea, headache, fevers or chills. His past medical history as listed below was reviewed and updated. Patient reports he drinks 1 pint of alcohol every Chest x-ray two-view: Pulmonary vascular congestion without focal consolidation consistent with congestive heart failure EKG revealed Sinus rhythm, ventricular rate 60 diabetes., NM interval 6 ms, QRS duration 90 ms, QT/QTC 429/449 ms, PRT axes 68, 139, 80 proBNP of 3330. Troponin negative. Alkaline phosphatase elevated at 142 AST and ALT normal with elevated total bilirubin at 1.5. Electrolyte derangement noted with a magnesium of 1.0, chloride of 79, carbon dioxide of 37, anion gap of 5, sodium of 121 and normal potassium. Lactic acid normal. Calcium normal. Viral swabbing for COVID, RSV and influenza all negative. In the ED patient received Lasix 40 mg IV, consult to cardiology, gentle IV hydration for hyponatremia and 2 g of magnesium for hypomagnesemia. Review of Systems REVIEW OF SYSTEMS: CONSTITUTIONAL: No fever, no malaise, no fatigue. HEENT: No recent visual problems or hearing problems. Denied any sore throat. CARDIOVASCULAR: No chest pain, orthopnea, PND, no palpitations, no syncope. PULMONARY: No shortness of breath, no cough, no hemoptysis. GASTROINTESTINAL: No diarrhea, no nausea, no vomiting, no abdominal pain. NEUROLOGICAL: No headaches, no weakness, no numbness. HEMATOLOGICAL: Denies any bleeding or petechiae. GENITOURINARY: Denies any burning micturition, frequency, or urgency. MUSCULOSKELETAL/RHEUMATOLOGICAL: Denies any joint pain, swelling, or any muscle pain. ENDOCRINE: Denies any polyuria or polydipsia. The rest of the 14-point review of systems is negative. Past Medical History Past Medical History: COPD, Diabetes Mellitus, Eye Disorder, Hyperlipidemia, Hypertension Additional Past Medical History / Comment(s): Bilateral lower extremity cellulitis. History of Any Multi-Drug Resistant Organisms: None Reported Past Surgical History: Back Surgery Additional Past Surgical History / Comment(s): 3 back surgeries, left cataract Past Anesthesia/Blood Transfusion Reactions: Previous Problems w/ Anesthesia Additional Past Anesthesia/Blood Transfusion Reaction / Comment(s): diff. to wake up one time with back surgery Past Psychological History: Depression Smoking Status: Current every day smoker Past Alcohol Use History: Daily Past Drug Use History: Marijuana - Past Family History Mother Family Medical History: No Reported History Medications and Allergies Home Medications Medication Instructions Recorded Confirmed Type Bisoprolol-Hctz 10-6.25 mg [Ziac 1 tab PO DAILY 12/12/17 07/06/23 History 10-6.25] Citalopram Hydrobromide [CeleXA] 20 mg PO DAILY 05/30/23 07/06/23 History Furosemide [Lasix] 20 mg PO BID 05/30/23 07/06/23 History Losartan Potassium 50 mg PO DAILY 05/30/23 07/06/23 History Potassium Chloride ER [K-Dur 20] 20 meq PO DAILY 05/30/23 07/06/23 History Rosuvastatin Calcium 5 mg PO DAILY 05/30/23 07/06/23 History Sildenafil Citrate [Sildenafil] 20 mg PO DAILY PRN 05/30/23 07/06/23 History metFORMIN HCL [Glucophage] 500 mg PO BID 05/30/23 07/06/23 History traZODone HCL [Desyrel] 50 mg PO HS PRN 07/06/23 07/06/23 History Allergies Allergy/AdvReac Type Severity Reaction Status Date / Time No Known Allergies Allergy Verified 07/06/23 17:47 Physical Exam Vitals: Vital Signs Temp Pulse Resp BP Pulse Ox 07/06/23 18:00 97.9 F 81 18 136/81 90 L 07/06/23 17:52 75 20 155/92 93 L 07/06/23 16:46 86 07/06/23 16:37 84 07/06/23 15:40 73 18 156/94 97 07/06/23 14:55 98.3 F 73 20 143/78 91 L Intake and Output 07/06/23 07/06/23 07/06/23 06:59 14:59 22:59 Other: Weight 97.522 kg General appearance: alert, in no apparent distress Head exam: Present: atraumatic, normocephalic, normal inspection Eye exam: Present: normal appearance, PERRL, EOMI. Absent: scleral icterus, conjunctival injection, periorbital swelling ENT exam: Present: mucous membranes dry Neck exam: Present: normal inspection, full ROM Respiratory exam: Present: wheezes (Expiratory), rales (Left lower lobe), decreased breath sounds. Absent: respiratory distress, rhonchi, stridor Cardiovascular Exam: Present: regular rate, normal rhythm, normal heart sounds. Absent: systolic murmur, diastolic murmur, rubs, gallop, clicks GI/Abdominal exam: Present: soft, normal bowel sounds, other (Rounded). Absent: distended, tenderness, guarding, rebound, rigid Extremities exam: Present: pedal edema (Bilateral lower extremity edema +2 with discolored lower extremities and multiple healed vascular ulcers) Back exam: Present: normal inspection Neurological exam: Present: alert, oriented X3, CN II-XII intact Psychiatric exam: Present: normal affect, normal mood Skin exam: Present: other (Discolored lower extremities Results CBC & Chem 7: 07/06/23 15:53 07/06/23 15:53 Labs: Abnormal Lab Results - Last 24 Hours (Table) 07/06/23 07/06/23 Range/Units 15:53 15:53 MCV 102.3 H (80.0-100.0) fL Sodium 121 L (137-145) mmol/L Chloride 79 L (98-107) mmol/L Carbon Dioxide 37 H (22-30) mmol/L Magnesium 1.0 L (1.6-2.3) mg/dL Total Bilirubin 1.5 H (0.2-1.3) mg/dL Alkaline Phosphatase 142 H (38-126) U/L Assessment and Plan Assessment: 1. Acute exacerbation CHF - Chest x-ray reveals pulmonary vascular congestion consistent with CHF; BNP is elevated at 3330; patient received Lasix 40 mg IV 1 in ED - We will continue with Lasix 40 mg IV every 12 hours; monitor strict USHA's, daily weights; low-salt and fluid restricted diet - Patient had echocardiogram completed within the past 6 months; we will hold off on repeating until patient is evaluated by cardiology - Consult cardiology for further recommendations 2. Hyponatremia; likely related to fluid overload; continue with Lasix 40 mg IV every 12 hours; fluid restriction; monitor electrolytes closely 3. Hypomagnesemia; likely related to alcohol abuse; a pigmented in ED; we will monitor magnesium levels and supplement as needed 4. Chronic alcohol abuse; concern for withdrawal; patient has been placed on CIWA protocol with Ativan; thiamine 100 mg daily; counseling done and need for cessation 5. Hypertension; losartan 50 mg daily; Ziac 106 0.25 mg daily 6. Diabetes mellitus type 2; metformin 500 mg twice a day which will be placed on hold while inpatient; monitor Accu-Cheks before meals and at bedtime with insulin sliding scale 7. Hyperlipidemia; Crestor 5 mg daily 8. Depression; Celexa 20 mg daily; trazodone 51 g. Daily at bedtime DVT prophylaxis; SCDs/subcu heparin CODE STATUS; full code
[2023-07-06] MEDS: HEPARIN SODIUM,PORCINE 5,000 UNIT/ML 1 ML VIAL SQ SCH (23:19)
[2023-07-07 06:27] LABS: Glucose,Whole Blood 124 mg/dL (70-110)
[2023-07-07] MEDS: INSULIN ASPART (NovoLOG) 100 UNIT/ML VIAL SQ SCH ×4 (06:28→20:48)
[2023-07-07] MEDS: FUROSEMIDE 10 MG/ML 4 ML VIAL IV SCH ×2 (06:30→16:32)
[2023-07-07] MEDS: LOSARTAN 50 MG TAB PO SCH (08:52)
[2023-07-07] MEDS: CITALOPRAM HYDROBROMIDE 20 MG TAB PO SCH (08:52)
[2023-07-07] MEDS: HEPARIN SODIUM,PORCINE 5,000 UNIT/ML 1 ML VIAL SQ SCH ×3 (08:52→23:20)
[2023-07-07] MEDS: POTASSIUM CHLORIDE ER 20 MEQ TAB.ER PO SCH (08:53)
[2023-07-07] MEDS: THIAMINE 100 MG TAB PO SCH (08:53)
[2023-07-07] MEDS ORDERED: ATORVASTATIN 10 MG TAB PO SCH (09:00)
[2023-07-07] MEDS: BISOPROLOL-HCTZ 10-6.25 MG 1 EACH TAB PO SCH (09:05)
[2023-07-07 11:27] LABS: Glucose,Whole Blood 118 mg/dL (70-110)
--- NOTE | 2023-07-07 12:49 | P.CRDCN ---
History of Present Illness Consult date: 07/07/23 History of present illness: History of Present Illness: The patient is a 62-year-old male with no prior history of CAD, history of hypertension and hyperlipidemia who presented with symptoms of dizziness and progressive dyspnea. The patient smokes about a pack and a half a day and drinks 1 pint of alcohol daily. For the last few weeks he's been complaining of progressive dyspnea on exertion with limited physical activity. He has a history of cellulitis and has noted worsening in the redness and the edema. He checked his O2 saturation at home and it was slow. He denies any symptoms of chest discomfort or any prior history of myocardial infarction or congestive heart failure. He does not follow with cardiology. He has no history of PND or orthopnea. He denies any palpitations or documented arrhythmia. He has no syncope. His course factors remarkable for hypertension, hyperlipidemia, diabetes mellitus, chronic tobacco use and smoking. Medications: Trazodone, Lasix 20 mg twice a day, Glucophage 500 mg twice a day, rosuvastatin 5 mg daily, Celexa, bisoprolol HCT 106 0.25 mg daily Review of Systems: Respiratory: Chronic dyspnea on exertion with cough and chronic tobacco use GI: No nausea or vomiting . No history of peptic ulcer disease. No recent GI bleed. : No hematuria or dysuria. Nervous System: No stroke or seizure. Physical Examination: 62-year-old male, alert and oriented no apparent distress ,Blood pressure 120/70, Heart rate 60 Head: Normocephalic. Eyes: Sclerae nonicteric. Neck: Good carotid upstroke, no bruit, no jugular venous distention. Lungs: Severe decrease in the air exchange bilaterally with scattered wheezes Heart: Regular rate and rhythm, S1-S2, no S3, no rub. No murmur. Abdomen: Soft nontender, positive bowel sounds no organomegaly. Extremities: Trace to 1+ edema, intact distal pulses. Bilateral erythema Labs: Hemoglobin 16.7, WBC 8.6, BUN 12, creatinine 0.66. Troponin less than 0.012, NT proBNP 3330. Chest x-ray was congestion EKG: Sinus mechanism with T-wave inversion in the anterolateral leads, cannot exclude anterior wall ischemia. Impression: 1. Progressive dyspnea with probable exacerbation of COPD, possible CHF, ejection fraction unknown 2. Abnormal EKG, rule out ischemic heart disease in a patient with multiple risk factors 3. History of chronic tobacco use 4. History of hypertension 5. History of diabetes 6. History of hyperlipidemia 7. History of cellulitis 8. Chronic alcohol intake Plan: 1. IV diuretics 2. Obtain an echocardiogram with Doppler 3. Pulmonary consultation 4. Treatment of cellulitis 5. Depending on his progress the patient will require further cardiac evaluation once stabilized either by cardiac catheterization or stress testing 6. Alcohol and tobacco cessation 7. Follow renal functions 8. Depending on his progress further recommendations will be made 9. Thank you for this consult we will follow with you Past Medical History Past Medical History: Heart Failure, COPD, Diabetes Mellitus, Eye Disorder, Hyperlipidemia, Hypertension Additional Past Medical History / Comment(s): Bilateral lower extremity cellulitis. History of Any Multi-Drug Resistant Organisms: None Reported Past Surgical History: Back Surgery Additional Past Surgical History / Comment(s): 3 back surgeries, left and right cataract Past Anesthesia/Blood Transfusion Reactions: Previous Problems w/ Anesthesia Additional Past Anesthesia/Blood Transfusion Reaction / Comment(s): diff. to wake up one time with back surgery Past Psychological History: Depression Smoking Status: Current every day smoker Past Alcohol Use History: Daily Additional Past Alcohol Use History / Comment(s): has smoked 1ppd for about 20 years; quit for 4 weeks in Nov. but started again Past Drug Use History: Marijuana - Past Family History Mother Family Medical History: No Reported History Medications and Allergies Home Medications Medication Instructions Recorded Confirmed Type Bisoprolol-Hctz 10-6.25 mg [Ziac 1 tab PO DAILY 12/12/17 07/06/23 History 10-6.25] Citalopram Hydrobromide [CeleXA] 20 mg PO DAILY 05/30/23 07/06/23 History Furosemide [Lasix] 20 mg PO BID 05/30/23 07/06/23 History Losartan Potassium 50 mg PO DAILY 05/30/23 07/06/23 History Potassium Chloride ER [K-Dur 20] 20 meq PO DAILY 05/30/23 07/06/23 History Rosuvastatin Calcium 5 mg PO DAILY 05/30/23 07/06/23 History Sildenafil Citrate [Sildenafil] 20 mg PO DAILY PRN 05/30/23 07/06/23 History metFORMIN HCL [Glucophage] 500 mg PO BID 05/30/23 07/06/23 History traZODone HCL [Desyrel] 50 mg PO HS PRN 07/06/23 07/06/23 History Allergies Allergy/AdvReac Type Severity Reaction Status Date / Time No Known Allergies Allergy Verified 07/06/23 17:47 Physical Exam Vitals: Vital Signs Temp Pulse Pulse Resp BP BP Pulse Ox 07/07/23 08:00 96 07/07/23 07:10 98.6 F 60 17 121/71 94 L 07/07/23 02:00 98.1 F 60 111/67 97 07/06/23 21:25 98.2 F 66 18 126/74 91 L 07/06/23 20:17 64 22 105/58 07/06/23 20:12 91 L 07/06/23 19:32 70 18 131/79 91 L 07/06/23 18:00 97.9 F 81 18 136/81 90 L 07/06/23 17:52 75 20 155/92 93 L 07/06/23 16:46 86 07/06/23 16:37 84 07/06/23 15:40 73 18 156/94 97 07/06/23 14:55 98.3 F 73 20 143/78 91 L Intake and Output 07/06/23 07/07/23 07/07/23 22:59 06:59 14:59 Output Total 800 Balance -800 Output: Urine 800 Other: # Voids 1 Weight 97.522 kg 95 kg Results 07/06/23 15:53 07/06/23 15:53 Cardiac Enzymes 07/06/23 07/06/23 Range/Units 15:53 15:53 AST 54 (17-59) U/L Troponin I <0.012 (0.000-0.034) ng/mL Coagulation 07/06/23 Range/Units 15:53 PT 11.8 (9.0-12.0) sec APTT 25.3 (22.0-30.0) sec CBC 07/06/23 Range/Units 15:53 WBC 8.6 (3.8-10.6) k/uL RBC 4.82 (4.30-5.90) m/uL Hgb 16.7 (13.0-17.5) gm/dL Hct 49.3 (39.0-53.0) % Plt Count 207 (150-450) k/uL Comprehensive Metabolic Panel 07/06/23 Range/Units 15:53 Sodium 121 L (137-145) mmol/L Potassium 4.2 (3.5-5.1) mmol/L Chloride 79 L (98-107) mmol/L Carbon Dioxide 37 H (22-30) mmol/L BUN 12 (9-20) mg/dL Creatinine 0.66 (0.66-1.25) mg/dL Glucose 94 (74-99) mg/dL Calcium 8.5 (8.4-10.2) mg/dL AST 54 (17-59) U/L ALT 29 (4-49) U/L Alkaline Phosphatase 142 H (38-126) U/L Total Protein 6.9 (6.3-8.2) g/dL Albumin 4.2 (3.5-5.0) g/dL Current Medications Generic Name Dose Route Start Last Admin Trade Name Freq PRN Reason Stop Dose Admin Acetaminophen 650 mg 07/06/23 17:06 Acetaminophen Tab 325 Mg Tab PO Q6HR PRN Mild Pain or Fever > 100.5 Atorvastatin Calcium 10 mg 07/07/23 09:00 07/07/23 08:53 Atorvastatin 10 Mg Tab PO 10 mg DAILY WALI Administration Bisoprolol Fumarate 1 each 07/07/23 09:00 07/07/23 09:05 Bisoprolol-Hctz 10-6.25 Mg 1 Each Tab PO Not Given DAILY WALI Citalopram Hydrobromide 20 mg 07/07/23 09:00 07/07/23 08:52 Citalopram Hydrobromide 20 Mg Tab PO 20 mg DAILY WALI Administration Furosemide 40 mg 07/06/23 18:00 07/07/23 06:30 Furosemide 10 Mg/Ml 4 Ml Vial IV 40 mg Q12H WALI Administration Heparin Sodium (Porcine) 5,000 unit 07/07/23 00:00 07/07/23 08:52 Heparin Sodium,Porcine 5,000 Unit/Ml 1 Ml Vial SQ 5,000 unit Q8HR WALI Administration Insulin Aspart 0 unit 07/07/23 07:30 07/07/23 11:58 Insulin Aspart (Novolog) 100 Unit/Ml Vial SQ 07/14/23 07:31 Not Given [facility] Protocol Losartan Potassium 50 mg 07/07/23 09:00 07/07/23 08:52 Losartan 50 Mg Tab PO 50 mg DAILY WALI Administration Naloxone HCl 0.2 mg 07/06/23 17:06 Naloxone 0.4 Mg/Ml 1 Ml Vial IV Q2M PRN Opioid Reversal Ondansetron HCl 4 mg 07/06/23 17:06 Ondansetron 4 Mg/2 Ml Vial IVP Q8HR PRN Nausea And Vomiting Potassium Chloride 20 meq 07/07/23 09:00 07/07/23 08:53 Potassium Chloride Er 20 Meq Tab.Er PO 20 meq DAILY WALI Administration Thiamine HCl 100 mg 07/07/23 09:00 07/07/23 08:53 Thiamine 100 Mg Tab PO 100 mg DAILY WALI Administration Trazodone HCl 50 mg 07/06/23 21:12 Trazodone Hcl 50 Mg Tab PO HS PRN Insomnia Intake and Output 07/06/23 07/07/23 07/07/23 22:59 06:59 14:59 Output Total 800 Balance -800 Output: Urine 800 Other: # Voids 1 Weight 97.522 kg 95 kg 07/06/23 15:53 07/06/23 15:53
[2023-07-07 13:52] LABS: Basophils % (A) 1 %; Eosinophils # (A) 0.1 k/uL (0-0.7); Eosinophils % (A) 2 %; HCT 49.7 % (39.0-53.0); HGB 16.7 gm/dL (13.0-17.5); Lymphocytes # (A) 1.1 k/uL (1.0-4.8); Lymphocytes % (A) 15 %; MCH 35.5 pg (25.0-35.0); MCHC 33.5 g/dL (31.0-37.0); MCV 105.8 fL (80.0-100.0); Macrocytosis Moderate; Mean Platelet Volume 8.2; Monocytes # (A) 0.5 k/uL (0-1.0); Monocytes % (A) 7 %; Neutrophils # (A) 5.2 k/uL (1.3-7.7); Neutrophils % (A) 75 %; Platelet Count 173 k/uL (150-450); RDW 14.7 % (11.5-15.5)
[2023-07-07] MEDS: ASPIRIN 81 MG PO SCH (13:55)
[2023-07-07 14:04] LABS: Magnesium 1.8 mg/dL (1.6-2.3)
[2023-07-07 14:05] LABS: Blood Urea Nitrogen 13 mg/dL (9-20); Chloride 86 mmol/L (98-107); Glucose 133 mg/dL (74-99); Potassium 3.8 mmol/L (3.5-5.1); Sodium 131 mmol/L (137-145)
[2023-07-07 14:06] LABS: African American GFR (CKD) >90 (>60 ml/min/1.73 sqM); Calcium 8.4 mg/dL (8.4-10.2); Non-African American GFR(CKD) >90 (>60 ml/min/1.73 sqM)
[2023-07-07 14:12] LABS: Anion Gap 4 mmol/L
[2023-07-07 14:16] LABS: Carbon Dioxide 41 mmol/L (22-30)
[2023-07-07] MEDS ORDERED: Magnesium Replacement Protocol 1 EACH MISC MISCELLANE PRN (15:24)
[2023-07-07] MEDS ORDERED: MAGNESIUM SULFATE-D5W PMX 1 GM in DEXTROSE/WATER 1 100ML.BAG IVPB ONE (15:24)
[2023-07-07 16:15] LABS: Glucose,Whole Blood 117 mg/dL (70-110)
[2023-07-07] MEDS: ALBUTEROL NEBULIZED 2.5 MG/3 ML INHALATION SCH ×2 (16:44→21:11)
[2023-07-07 19:27] LABS: Glucose,Whole Blood 159 mg/dL (70-110)
[2023-07-07] MEDS: SYMBICORT 160-4.5 MCG INHALER INHALATION SCH (21:11)
--- NOTE | 2023-07-07 22:13 | P.CNPUL ---
History of Present Illness Consult date: 07/07/23 Requesting physician: Sunil Hou Reason for consult: COPD Chief complaint: Shortness of breath and dry cough History of present illness: This is a 62-year-old white male with no previous history of documented COPD, however the patient had at least a 49-qmcr-enog smoking history, and for the last few months the patient has been complaining of shortness of breath on exertion and intermittent episodes of lightheadedness and dizziness. Patient has a dry cough, but no fever, no chills, no hemoptysis, no chest pain. Patient is also known to drink alcohol almost on a daily basis, patient is on disability mostly because of his active issues and have multiple surgeries on his low back. Patient also had previous history of cellulitis and chronic venous stasis changes in lower extremities. Never seen a manager critical care unit in the past. Patient was brought into the ER, and he had no chest pain, no orthopnea, no PND, seen by cardiology on consultation, his chest x-ray showed cardiomegaly and mild pulmonary vascular congestion, BNP was elevated at 3330, patient was admitted and this consult was initiated. Looking at his labs, the patient was noted to have a bicarb of 41 which is indicative of chronic metabolic compensation for most likely a picture of chronic respiratory acidosis related to underlying COPD. Considering his smoking history and considering his symptoms, this consult was initiated. Again the patient never saw a manager critical care unit never been on inhalers in the past EKG on this admission showed incomplete right bundle branch block, and right ventricular hypertrophy with ST and T wave changes with prominent R in V1. Patient denies any wheezing denies any fever or chill denies any hemoptysis. Review of Systems Constitutional: Negative HEENT: Negative Pulmonary: As noted in HPI Cardiac: As noted in HPI GI: Negative Genitourinary: Negative Musculoskeletal: Negative Hematologic: Negative Psychiatric: Negative Endocrine: Negative Neurologic: Negative Past Medical History Past Medical History: Heart Failure, COPD, Diabetes Mellitus, Eye Disorder, Hyperlipidemia, Hypertension Additional Past Medical History / Comment(s): Bilateral lower extremity cellulitis. History of Any Multi-Drug Resistant Organisms: None Reported Past Surgical History: Back Surgery Additional Past Surgical History / Comment(s): 3 back surgeries, left and right cataract Past Anesthesia/Blood Transfusion Reactions: Previous Problems w/ Anesthesia Additional Past Anesthesia/Blood Transfusion Reaction / Comment(s): diff. to wake up one time with back surgery Past Psychological History: Depression Smoking Status: Current every day smoker Past Alcohol Use History: Daily Additional Past Alcohol Use History / Comment(s): has smoked 1ppd for about 20 years; quit for 4 weeks in Nov. but started again Past Drug Use History: Marijuana - Past Family History Mother Family Medical History: No Reported History Medications and Allergies Home Medications Medication Instructions Recorded Confirmed Type Bisoprolol-Hctz 10-6.25 mg [Ziac 1 tab PO DAILY 12/12/17 07/06/23 History 10-6.25] Citalopram Hydrobromide [CeleXA] 20 mg PO DAILY 05/30/23 07/06/23 History Furosemide [Lasix] 20 mg PO BID 05/30/23 07/06/23 History Losartan Potassium 50 mg PO DAILY 05/30/23 07/06/23 History Potassium Chloride ER [K-Dur 20] 20 meq PO DAILY 05/30/23 07/06/23 History Rosuvastatin Calcium 5 mg PO DAILY 05/30/23 07/06/23 History Sildenafil Citrate [Sildenafil] 20 mg PO DAILY PRN 05/30/23 07/06/23 History metFORMIN HCL [Glucophage] 500 mg PO BID 05/30/23 07/06/23 History traZODone HCL [Desyrel] 50 mg PO HS PRN 07/06/23 07/06/23 History Allergies Allergy/AdvReac Type Severity Reaction Status Date / Time No Known Allergies Allergy Verified 07/06/23 17:47 Physical Exam Vitals: Vital Signs Temp Pulse Pulse Resp BP Pulse Ox 07/07/23 21:22 76 07/07/23 21:11 76 07/07/23 19:33 98.6 F 72 18 103/65 94 L 07/07/23 16:54 84 07/07/23 16:44 80 07/07/23 13:52 97.4 F L 62 18 116/76 96 07/07/23 08:00 96 07/07/23 07:10 98.6 F 60 17 121/71 94 L 07/07/23 02:00 98.1 F 60 111/67 97 Intake and Output 07/07/23 07/07/23 07/07/23 06:59 14:59 22:59 Output Total 800 Balance -800 Output: Urine 800 Other: # Voids 1 4 Weight 95 kg Physical Exam: Revealed a 62-year-old white male in no distress very pleasant on room air Head: Atraumatic, normocephalic HEENT: [No neck masses.] [No thyromegaly.] [No JVD.] Chest: [Diminished breath sound bilaterally no crackles or rhonchi or wheezes Cardiac Exam: [Normal S1 and S2, no S3 gallop, 2/6 systolic murmur thought the precordium Abdomen: [Obese, Soft, nontender, no megaly, no rebound, no guarding, normal bowel sounds.] Extremities: [No clubbing, no edema, no cyanosis.] Neurological Exam: [No focal neurologic deficit.] Alert oriented 3 Psychiatric: Normal mood affect and normal mental status examination Skin: No rashes however the patient does have chronic venous stasis changes in lower extremities and evidence of previous cellulitis Results - Laboratory Findings CBC and BMP: 07/07/23 13:04 07/07/23 13:04 PT/INR, D-dimer PT 11.8 sec (9.0-12.0) 07/06/23 15:53 INR 1.1 (<1.2) 07/06/23 15:53 D-Dimer 0.32 mg/L FEU (<0.60) 07/06/23 15:53 Abnormal lab findings: Abnormal Labs 07/06/23 07/06/23 07/07/23 15:53 15:53 06:24 MCV 102.3 H MCH Sodium 121 L Chloride 79 L Carbon Dioxide 37 H Glucose POC Glucose (mg/dL) 124 H Magnesium 1.0 L Total Bilirubin 1.5 H Alkaline Phosphatase 142 H 07/07/23 07/07/23 07/07/23 11:25 13:04 13:04 MCV 105.8 H MCH 35.5 H Sodium 131 L Chloride 86 L Carbon Dioxide 41 H* Glucose 133 H POC Glucose (mg/dL) 118 H Magnesium Total Bilirubin Alkaline Phosphatase 07/07/23 07/07/23 16:14 19:26 MCV MCH Sodium Chloride Carbon Dioxide Glucose POC Glucose (mg/dL) 117 H 159 H Magnesium Total Bilirubin Alkaline Phosphatase - Diagnostic Findings Chest x-ray: image reviewed (As noted in HPI cardiomegaly and mild pulmonary vascular congestion) Assessment and Plan Assessment: Impression: Chronic shortness of breath, progressive, suspect underlying COPD, and possibly some mild component of congestive heart failure, could be systolic or diastolic in nature. Chronic cor pulmonale, suspect underlying pulmonary hypertension Chronic tobacco use Chronic alcohol use Type 2 diabetes without complications History of chronic recurrent cellulitis of lower extremities Dyslipidemia Benign essential hypertension Chronic low back pain Recommendation: Continue present treatment plan Start patient on bronchodilators including DuoNeb and Symbicort would not recommend methylprednisolone at this point. Order bedside PFT to be done in a.m. assess his FEV1 Cardiology is addressing his cardiac issues and echocardiogram is pending We will continue to follow. Patient will definitely need outpatient follow-up regarding his COPD and would have a full PFT on outpatient basis post discharge. Time with Patient: Greater than 30
--- NOTE | 2023-07-08 05:18 | P.PN ---
Subjective Progress Note Date: 07/07/23 62-year-old male presenting to the emergency room with complaints of shortness of breath, nonproductive cough, dry mouth and brain fog with intermittent dizziness all ongoing throughout the day today and progressively worsening. He is a pack-a-day smoker with a history of COPD. He states that he used to albuterol at home approximately 3 hours ago with a slight temporary improvement in symptoms. He reports that he has only been able to smoke a few cigarettes today. He denies any chest pain, abdominal pain, nausea, vomiting, diarrhea, headache, fevers or chills. His past medical history as listed below was reviewed and updated. Patient reports he drinks 1 pint of alcohol every Chest x-ray two-view: Pulmonary vascular congestion without focal consolidation consistent with congestive heart failure EKG revealed Sinus rhythm, ventricular rate 60 diabetes., SC interval 6 ms, QRS duration 90 ms, QT/QTC 429/449 ms, PRT axes 68, 139, 80 proBNP of 3330. Troponin negative. Alkaline phosphatase elevated at 142 AST and ALT normal with elevated total bilirubin at 1.5. Electrolyte derangement noted with a magnesium of 1.0, chloride of 79, carbon dioxide of 37, anion gap of 5, sodium of 121 and normal potassium. Lactic acid normal. Calcium normal. Viral swabbing for COVID, RSV and influenza all negative. In the ED patient received Lasix 40 mg IV, consult to cardiology, gentle IV hydration for hyponatremia and 2 g of magnesium for hypomagnesemia. 07/07/2023 Patient is seen in follow-up today continues to report shortness of breath and maintained on IV Lasix with cardiology following. 2-D echo is ordered and pending his chest x-ray showed pulmonary vascular congestion. Patient having features of COPD and will consult pulmonary and appreciate input and recommendations. Patient with a very faint slight expiratory wheeze noted at the bases will start albuterol nebulize treatments along with Symbicort. Patient admits to smoking at least 1 pack a day for many years. Patient sodium was low on admission and was given Lasix with improvement. Sodium is above 130 and mag was also replaced as initial magnesium was 1.0 awaiting repeat labs. BNP was 3300. Will follow-up with repeat labs. Patient is afebrile denies chest pain or palpitations. Patient tolerating diet with no reports of nausea vomiting noted. Review of systems: Constitutional: No reports of fatigue, fever, or chills Cardiovascular: No reports of chest pain or palpitations Respiratory: reports of shortness of breath and chronic cough GI: No reports of nausea, vomiting, or diarrhea : No reports of dysuria or retention Neurovascular: No reports of weakness or numbness All medications have been reviewed Physical exam: Gen: This is a 62-year-old male who is awake, alert and oriented 3, well-deve loped, well-nourished HEENT: Head is atraumatic, normocephalic. Pupils equal, round. Sclerae is anic teric. NECK: Supple. No JVD. No lymphadenopathy. No thyromegaly. LUNGS: Diminished breath sounds bilaterally with faint expiratory wheezes noted at the bases, scattered rhonchi. No intercostal retractions. HEART: Regular rate and rhythm. No murmur. ABDOMEN: Soft. Bowel sounds are present. Obese. No masses. No tenderness. EXTREMITIES: No pedal edema. No calf tenderness. NEUROLOGICAL: Patient is awake, alert and oriented x3. Cranial nerves 2 through 12 are grossly intact. Assessment: -Acute exacerbation CHF with unknown EF -Hyponatremia; likely related to fluid overload; improved with IV Lasix -Hypomagnesemia; likely related to alcohol abuse -Chronic alcohol abuse; concern for withdrawal; patient has been placed on CIWA protocol -Hypertension history -Diabetes mellitus type 2 -Hyperlipidemia -Depression -GI prophylaxis -DVT prophylaxis; SCDs/subcu heparin -full code Plan: Patient will be continued on IV Lasix with cardiology and pulmonary following Sodium improved after IV Lasix and will continue follow-up on repeat labs along with repeat chest x-ray Continue CIWA protocol and monitor for any signs of withdrawal Initiate albuterol nebulize treatments along with Symbicort and appreciate pulmonary consultation. Patient will need additional outpatient follow-up with testing Patient continued on 2 L via nasal cannula and wean FiO2 as tolerated Continue diabetic diet along with heart healthy and fluid restrictions and continue with Accu-Cheks before meals and at bedtime and sliding scale Encouraged increased activity as tolerated The impression and plan of care has been dictated by Diane Hart, Nurse Practitioner as directed. Dr. Renata MD I have performed a history and examination and MDM of this patient, discussed the same with the dictator, and agree with the dictator's assessment and plan as written ,documented as a scribe. Based on total visit time, I have performed more than 50% of the visit. Objective - Vital Signs Vital signs: Vital Signs Temp 98.6 F 07/07/23 07:10 Pulse 60 07/07/23 07:10 Resp 17 07/07/23 07:10 BP 121/71 07/07/23 07:10 Pulse Ox 96 07/07/23 08:00 FiO2 Intake & Output 07/06/23 07/07/23 07/07/23 18:59 06:59 18:59 Output Total 800 Balance -800 Weight 97.522 kg 95 kg Output: Urine 800 Other: # Voids 1 - Labs CBC & Chem 7: 07/07/23 13:04 07/07/23 13:04 Labs: Abnormal Lab Results - Last 24 Hours (Table) 07/06/23 07/06/23 07/07/23 Range/Units 15:53 15:53 06:24 MCV 102.3 H (80.0-100.0) fL Sodium 121 L (137-145) mmol/L Chloride 79 L (98-107) mmol/L Carbon Dioxide 37 H (22-30) mmol/L POC Glucose (mg/dL) 124 H (70-110) mg/dL Magnesium 1.0 L (1.6-2.3) mg/dL Total Bilirubin 1.5 H (0.2-1.3) mg/dL Alkaline Phosphatase 142 H (38-126) U/L
[2023-07-08 05:39] LABS: Glucose,Whole Blood 148 mg/dL (70-110)
[2023-07-08] MEDS: INSULIN ASPART (NovoLOG) 100 UNIT/ML VIAL SQ SCH ×4 (05:48→20:14)
[2023-07-08] MEDS: FUROSEMIDE 10 MG/ML 4 ML VIAL IV SCH ×2 (06:05→17:49)
[2023-07-08 07:40] LABS: African American GFR (CKD) >90 (>60 ml/min/1.73 sqM); Blood Urea Nitrogen 15 mg/dL (9-20); Calcium 8.6 mg/dL (8.4-10.2); Chloride 87 mmol/L (98-107); Glucose 115 mg/dL (74-99); Magnesium 1.8 mg/dL (1.6-2.3); Non-African American GFR(CKD) >90 (>60 ml/min/1.73 sqM); Potassium 3.7 mmol/L (3.5-5.1); Sodium 130 mmol/L (137-145)
[2023-07-08 07:48] LABS: Anion Gap 2 mmol/L
[2023-07-08 07:52] LABS: Carbon Dioxide 41 mmol/L (22-30)
--- NOTE | 2023-07-08 08:29 | XR ---
EXAMINATION TYPE: XR chest 1V portable DATE OF EXAM: 07/08/2023 COMPARISON: 07/06/2023 HISTORY: Shortness of breath TECHNIQUE: Single frontal view of the chest is obtained. FINDINGS: There is no focal air space opacity, pleural effusion, or pneumothorax seen. The cardiac silhouette size is within normal limits. The osseous structures are intact. Heart is enlarged. AC j oint arthropathy on the left incidentally noted. IMPRESSION: Stable cardiomegaly. No overt failure on today's exam
[2023-07-08] MEDS: THIAMINE 100 MG TAB PO SCH (08:32)
[2023-07-08] MEDS: LOSARTAN 50 MG TAB PO SCH (08:32)
[2023-07-08] MEDS: CITALOPRAM HYDROBROMIDE 20 MG TAB PO SCH (08:32)
[2023-07-08] MEDS: POTASSIUM CHLORIDE ER 20 MEQ TAB.ER PO SCH (08:32)
[2023-07-08] MEDS: ATORVASTATIN 40 MG TAB PO SCH (08:32)
[2023-07-08] MEDS: ASPIRIN 81 MG PO SCH (08:32)
[2023-07-08] MEDS: HEPARIN SODIUM,PORCINE 5,000 UNIT/ML 1 ML VIAL SQ SCH ×3 (08:33→23:47)
[2023-07-08] MEDS: SYMBICORT 160-4.5 MCG INHALER INHALATION SCH ×2 (08:48→20:56)
[2023-07-08] MEDS: ALBUTEROL NEBULIZED 2.5 MG/3 ML INHALATION SCH ×4 (08:48→20:56)
[2023-07-08] MEDS ORDERED: BISOPROLOL-HCTZ 5-6.25 MG 1 EACH TAB PO ONE (09:00)
[2023-07-08] MEDS ORDERED: BISOPROLOL 5 MG TAB PO ONE (09:00)
[2023-07-08 10:17] LABS: Chol/HDL Ratio 2.34 Ratio; LDL Cholesterol,Calculated 27.8 mg/dL (0.0-131.0)
[2023-07-08 11:40] LABS: Glucose,Whole Blood 133 mg/dL (70-110)
--- NOTE | 2023-07-08 11:57 | CA ---
Transthoracic Echo Report Name: Andres Soares Age: 62 Gender: M : 1960 Exam Date: 07/08/2023 09:26 Exam Location: [place] Ht (in): 71 Wt (lb): 209 Ordering Physician: Sunil Hou MD ([id number]) Attending/Referring Phys: Flour Worker Fela Cassidy [facility] Procedure CPT: Indications: chf Cardiac Hx: Technical Quality: Fair Contrast 1: Total Dose (mL): Contrast 2: Total Dose (mL): MEASUREMENTS (Male / Female) Normal Values 2D ECHO LV Diastolic Diameter PLAX 5.5 cm 4.2 - 5.9 / 3.9 - 5.3 cm LV Systolic Diameter PLAX 4.5 cm IVS Diastolic Thickness 0.9 cm 0.6 - 1.0 / 0.6 - 0.9 cm LVPW Diastolic Thickness 0.9 cm 0.6 - 1.0 / 0.6 - 0.9 cm LV Relative Wall Thickness 0.3 DOPPLER Mitral E Point Velocity 87.3 cm/s Mitral A Point Velocity 70.5 cm/s Mitral E to A Ratio 1.2 MV Deceleration Time 189.3 ms LV E' Lateral Velocity 6.6 cm/s Mitral E to LV E' Lateral Ratio 13.2 LV E' Septal Velocity 7.4 cm/s Mitral E to LV E' Septal Ratio 11.8 TR Peak Velocity 240.9 cm/s TR Peak Gradient 23.2 mmHg Right Atrial Pressure 3.0 mmHg Pulmonary Artery Systolic Pressu 26.2 mmHg Right Ventricular Systolic Press 26.2 mmHg FINDINGS Left Ventricle Left ventricular wall thickness normal. Left ventricular cavity size normal. Prominent left ventricular trabeculations. Normal left ventricular systolic function with no obvious regional wall motion abnormalities. Left ventricular ejection fraction is estimated at 55-60%. Right Ventricle Right Atrium Left Atrium Mitral Valve Structurally normal mitral valve. Mild mitral regurgitation. Aortic Valve Tricuspid Valve Structurally normal tricuspid valve. Trace tricuspid regurgitation. Pulmonic Valve Pericardium No pericardial effusion. Aorta CONCLUSIONS Limited study for LVEF next Normal global LV systolic function with EF estimated at 55% No obvious regional wall motion abnormality appreciated Prominent trabeculations in left ventricular cavity Mild concentric LVH No significant difference when compared to prior echo from April 2023 Previewed by: Dr Luis Eduardo Vicente (Electronically Signed) Final Date: 08 July 2023 11:56
[2023-07-08] MEDS: methylPREDNISolone SOD SUCCI 40 MG/ML 1 ML VIAL IV SCH ×3 (13:27→23:47)
[2023-07-08] MEDS: MAGNESIUM SULFATE-D5W PMX 1 GM in DEXTROSE/WATER 1 100ML.BAG IVPB SCH ×2 (13:27→14:38)
--- NOTE | 2023-07-08 13:57 | P.PN ---
Subjective Progress Note Date: 07/08/23 This is a 62-year-old white male with no previous history of documented COPD, however the patient had at least a 22-uipr-sloc smoking history, and for the last few months the patient has been complaining of shortness of breath on exertion and intermittent episodes of lightheadedness and dizziness. Patient has a dry cough, but no fever, no chills, no hemoptysis, no chest pain. Patient is also known to drink alcohol almost on a daily basis, patient is on disability mostly because of his active issues and have multiple surgeries on his low back. Patient also had previous history of cellulitis and chronic venous stasis changes in lower extremities. Never seen a sales management intern in the past. Patient was brought into the ER, and he had no chest pain, no orthopnea, no PND, seen by cardiology on consultation, his chest x-ray showed cardiomegaly and mild pulmonary vascular congestion, BNP was elevated at 3330, patient was admitted and this consult was initiated. Looking at his labs, the patient was noted to have a bicarb of 41 which is indicative of chronic metabolic compensation for most likely a picture of chronic respiratory acidosis related to underlying COPD. Considering his smoking history and considering his symptoms, this consult was initiated. Again the patient never saw a sales management intern never been on inhalers in the past EKG on this admission showed incomplete right bundle branch block, and right ventricular hypertrophy with ST and T wave changes with prominent R in V1. Patient denies any wheezing denies any fever or chill denies any hemoptysis. The patient is seen today 07/08/2023 in follow-up on the regular medical floor. He is currently sitting up in bed. Awake and alert in no acute distress. Still dyspneic with conversation. Dyspneic with minimal exertion. Chest x-ray shows stable cardiomegaly. No evidence of congestive heart failure. No air space opacities. No pleural effusion. No pneumothorax. Limited echocardiogram revealed normal global LV systolic function and ejection fraction 55%. EKG reveals some anterior lateral T-wave inversions. Prolonged QT interval. Sodium 130. Potassium 3.7. Bicarb 41. BUN 15. Creatinine 0.64. Glucose 115. Magnesium 1.8. He remains on Solu Medrol, Symbicort and albuterol. Remains on IV diuretics. Heparin for DVT prophylaxis Objective - Vital Signs Vital signs: Vital Signs Temp 98.4 F 07/08/23 07:16 Pulse 76 07/08/23 12:41 Resp 17 07/08/23 07:16 BP 120/71 07/08/23 07:16 Pulse Ox 93 L 07/08/23 07:16 FiO2 Intake & Output 07/07/23 07/08/23 07/08/23 18:59 06:59 18:59 Weight 98 kg Other: # Voids 4 4 - Exam GENERAL EXAM: Alert, pleasant 62-year-old male patient on liters nasal cannula, comfortable in no apparent distress. HEAD: Normocephalic. EYES: Normal reaction of pupils, equal size. NOSE: Clear with pink turbinates. THROAT: No erythema or exudates. NECK: No masses, no JVD. CHEST: No chest wall deformity. LUNGS: Equal air entry with expiratory wheeze, few scattered crackles. CVS: S1 and S2 normal with no audible murmur, regular rhythm. ABDOMEN: No hepatosplenomegaly, normal bowel sounds, no guarding or rigidity. SPINE: No scoliosis or deformity SKIN: No rashes CENTRAL NERVOUS SYSTEM: No focal deficits, tone is normal in all 4 extremities. EXTREMITIES: There is 1+ peripheral edema. Changes of chronic venous stasis. No clubbing, no cyanosis. Peripheral pulses are intact. - Labs CBC & Chem 7: 07/07/23 13:04 07/08/23 07:00 Labs: Abnormal Lab Results - Last 24 Hours (Table) 07/07/23 07/07/23 07/07/23 Range/Units 13:04 13:04 13:04 MCV 105.8 H (80.0-100.0) fL MCH 35.5 H (25.0-35.0) pg Sodium 131 L (137-145) mmol/L Chloride 86 L (98-107) mmol/L Carbon Dioxide 41 H* (22-30) mmol/L Creatinine (0.66-1.25) mg/dL Glucose 133 H (74-99) mg/dL POC Glucose (mg/dL) (70-110) mg/dL Triglycerides 156.00 H (0.00-149.00) mg/dL 07/07/23 07/07/23 07/08/23 Range/Units 16:14 19:26 05:37 MCV (80.0-100.0) fL MCH (25.0-35.0) pg Sodium (137-145) mmol/L Chloride (98-107) mmol/L Carbon Dioxide (22-30) mmol/L Creatinine (0.66-1.25) mg/dL Glucose (74-99) mg/dL POC Glucose (mg/dL) 117 H 159 H 148 H (70-110) mg/dL Triglycerides (0.00-149.00) mg/dL 07/08/23 07/08/23 Range/Units 07:00 11:39 MCV (80.0-100.0) fL MCH (25.0-35.0) pg Sodium 130 L (137-145) mmol/L Chloride 87 L (98-107) mmol/L Carbon Dioxide 41 H* (22-30) mmol/L Creatinine 0.64 L (0.66-1.25) mg/dL Glucose 115 H (74-99) mg/dL POC Glucose (mg/dL) 133 H (70-110) mg/dL Triglycerides (0.00-149.00) mg/dL Microbiology - Last 24 Hours (Table) 07/06/23 13:45 Blood Culture - Preliminary Blood 07/06/23 14:00 Blood Culture - Preliminary Blood Assessment and Plan Assessment: Chronic shortness of breath, progressive, suspect underlying COPD, and possibly some mild component of congestive heart failure, could be systolic or diastolic in nature. Chronic cor pulmonale, suspect underlying pulmonary hypertension Chronic tobacco use Chronic alcohol use Type 2 diabetes without complications History of chronic recurrent cellulitis of lower extremities Dyslipidemia Benign essential hypertension Chronic low back pain Plan: The patient was seen and evaluated Chest x-ray, labs and medications reviewed Continue the current treatment plan Educated regarding the importance of complete smoking cessation NicoDerm patch will be offered We will continue to follow and make further recommendations based on his clinical status I have personally seen and examined the patient, performed the documentation and the assessment and plan as written. Number of minutes spent on the visit: 10.
[2023-07-08 16:28] LABS: Glucose,Whole Blood 138 mg/dL (70-110)
[2023-07-08] MEDS ORDERED: BUDESONIDE 1 MG/2 ML NEBU INHALATION SCH (20:00)
[2023-07-08 20:08] LABS: Glucose,Whole Blood 161 mg/dL (70-110)
--- NOTE | 2023-07-09 05:18 | P.PN ---
Subjective Progress Note Date: 07/08/23 62-year-old male presenting to the emergency room with complaints of shortness of breath, nonproductive cough, dry mouth and brain fog with intermittent dizziness all ongoing throughout the day today and progressively worsening. He is a pack-a-day smoker with a history of COPD. He states that he used to albuterol at home approximately 3 hours ago with a slight temporary improvement in symptoms. He reports that he has only been able to smoke a few cigarettes today. He denies any chest pain, abdominal pain, nausea, vomiting, diarrhea, headache, fevers or chills. His past medical history as listed below was reviewed and updated. Patient reports he drinks 1 pint of alcohol every Chest x-ray two-view: Pulmonary vascular congestion without focal consolidation consistent with congestive heart failure EKG revealed Sinus rhythm, ventricular rate 60 diabetes., IL interval 6 ms, QRS duration 90 ms, QT/QTC 429/449 ms, PRT axes 68, 139, 80 proBNP of 3330. Troponin negative. Alkaline phosphatase elevated at 142 AST and ALT normal with elevated total bilirubin at 1.5. Electrolyte derangement noted with a magnesium of 1.0, chloride of 79, carbon dioxide of 37, anion gap of 5, sodium of 121 and normal potassium. Lactic acid normal. Calcium normal. Viral swabbing for COVID, RSV and influenza all negative. In the ED patient received Lasix 40 mg IV, consult to cardiology, gentle IV hydration for hyponatremia and 2 g of magnesium for hypomagnesemia. 07/07/2023 Patient is seen in follow-up today continues to report shortness of breath and maintained on IV Lasix with cardiology following. 2-D echo is ordered and pending his chest x-ray showed pulmonary vascular congestion. Patient having features of COPD and will consult pulmonary and appreciate input and recommendations. Patient with a very faint slight expiratory wheeze noted at the bases will start albuterol nebulize treatments along with Symbicort. Patient admits to smoking at least 1 pack a day for many years. Patient sodium was low on admission and was given Lasix with improvement. Sodium is above 130 and mag was also replaced as initial magnesium was 1.0 awaiting repeat labs. BNP was 3300. Will follow-up with repeat labs. Patient is afebrile denies chest pain or palpitations. Patient tolerating diet with no reports of nausea vomiting noted. 07/08/2023 Patient is seen and evaluated in follow-up today with cardiology and pulmonary following. Patient is maintained on albuterol treatments along with Symbicort and will initiate IV steroids as patient continues to report cough with some wheezing. Patient is maintained on IV Lasix with cardiology following. Patient continues on 4 L via nasal cannula and does not wear oxygen outpatient recommend to wean FiO2 as tolerated. Patient also being given something for cough suppression as patient reports increased cough. Patient is afebrile with no reported chest pains or palpitations. Patient has been instructed to increase activity as tolerated Out of the bed more often and walk frequently. Review of systems: Constitutional: No reports of fatigue, fever, or chills Cardiovascular: No reports of chest pain or palpitations Respiratory: reports of shortness of breath and chronic cough GI: No reports of nausea, vomiting, or diarrhea : No reports of dysuria or retention Neurovascular: No reports of weakness or numbness All medications have been reviewed Physical exam: Gen: This is a 62-year-old male who is awake, alert and oriented 3, well- developed, well-nourished HEENT: Head is atraumatic, normocephalic. Pupils equal, round. Sclerae is anicteric. NECK: Supple. No JVD. No lymphadenopathy. No thyromegaly. LUNGS: Diminished breath sounds bilaterally with faint expiratory wheezes noted at the bases, scattered rhonchi. No intercostal retractions. HEART: Regular rate and rhythm. No murmur. ABDOMEN: Soft. Bowel sounds are present. Obese. No masses. No tenderness. EXTREMITIES: No pedal edema. No calf tenderness. NEUROLOGICAL: Patient is awake, alert and oriented x3. Cranial nerves 2 through 12 are grossly intact. Assessment: -Acute exacerbation CHF with diastolic dysfunction with preserved EF, echo shows EF of 55% -Hyponatremia; likely related to fluid overload; improved with IV Lasix -COPD, acute exacerbation -Hypomagnesemia; likely related to alcohol abuse -Chronic alcohol abuse; concern for withdrawal; patient has been placed on CINM protocol -Hypertension history -Diabetes mellitus type 2 -Hyperlipidemia -Depression -Continued ongoing nicotine dependence -GI prophylaxis -DVT prophylaxis; SCDs/subcu heparin -full code Plan: Patient will be continued on IV Lasix with cardiology and pulmonary following Sodium improved after IV Lasix and will continue follow-up on repeat labs to monitor kidney functions and electrolytes Continue CIWA protocol and monitor for any signs of withdrawal Initiate albuterol nebulize treatments along with Symbicort and appreciate pulmonary consultation. Patient also being started on Pulmicort and IV steroids and will initiate sliding scale as needed. Patient will need additional outpatient follow-up with testing Patient continued on 2-4 L via nasal cannula and wean FiO2 as tolerated. Will also add incentive spirometer encourage the patient use at least 10 times every hour while awake. Wean as tolerated and may possibly need evaluation for home O2 Patient continues to smoke and smoking cessation has been counseled Continue diabetic diet along with heart healthy and fluid restrictions and continue with Accu-Cheks before meals and at bedtime and sliding scale Encouraged increased activity as tolerated Possible discharge planning in the next 24-48 hours. Due to multiple complex medical issues, prognosis is guarded The impression and plan of care has been dictated by Diane Hart, Nurse Practitioner as directed. Dr. hugo MD I have performed a history and examination and MDM of this patient, discussed the same with the dictator, and agree with the dictator's assessment and plan as written ,documented as a scribe. Based on total visit time, I have performed more than 50% of the visit. Objective - Vital Signs Vital signs: Vital Signs Temp 98.1 F 07/08/23 13:50 Pulse 84 07/08/23 16:24 Resp 19 07/08/23 13:50 BP 116/63 07/08/23 13:50 Pulse Ox 97 07/08/23 13:50 FiO2 Intake & Output 07/07/23 07/08/23 07/08/23 18:59 06:59 18:59 Weight 98 kg Other: # Voids 4 4 5 - Labs CBC & Chem 7: 07/07/23 13:04 07/08/23 07:00 Labs: Abnormal Lab Results - Last 24 Hours (Table) 07/07/23 07/07/23 07/08/23 Range/Units 13:04 19:26 05:37 Sodium (137-145) mmol/L Chloride (98-107) mmol/L Carbon Dioxide (22-30) mmol/L Creatinine (0.66-1.25) mg/dL Glucose (74-99) mg/dL POC Glucose (mg/dL) 159 H 148 H (70-110) mg/dL Triglycerides 156.00 H (0.00-149.00) mg/dL 07/08/23 07/08/23 07/08/23 Range/Units 07:00 11:39 16:26 Sodium 130 L (137-145) mmol/L Chloride 87 L (98-107) mmol/L Carbon Dioxide 41 H* (22-30) mmol/L Creatinine 0.64 L (0.66-1.25) mg/dL Glucose 115 H (74-99) mg/dL POC Glucose (mg/dL) 133 H 138 H (70-110) mg/dL Triglycerides (0.00-149.00) mg/dL Microbiology - Last 24 Hours (Table) 07/06/23 13:45 Blood Culture - Preliminary Blood 07/06/23 14:00 Blood Culture - Preliminary Blood
[2023-07-09 05:41] LABS: Glucose,Whole Blood 205 mg/dL (70-110)
[2023-07-09] MEDS: INSULIN ASPART (NovoLOG) 100 UNIT/ML VIAL SQ SCH ×4 (06:40→21:18)
[2023-07-09] MEDS: FUROSEMIDE 10 MG/ML 4 ML VIAL IV SCH (06:41)
[2023-07-09] MEDS: THIAMINE 100 MG TAB PO SCH (08:04)
[2023-07-09] MEDS: POTASSIUM CHLORIDE ER 20 MEQ TAB.ER PO SCH (08:04)
[2023-07-09] MEDS: CITALOPRAM HYDROBROMIDE 20 MG TAB PO SCH (08:04)
[2023-07-09] MEDS: ATORVASTATIN 40 MG TAB PO SCH (08:04)
[2023-07-09] MEDS: ASPIRIN 81 MG PO SCH (08:04)
[2023-07-09] MEDS: methylPREDNISolone SOD SUCCI 40 MG/ML 1 ML VIAL IV SCH ×2 (08:04→16:53)
[2023-07-09] MEDS: HEPARIN SODIUM,PORCINE 5,000 UNIT/ML 1 ML VIAL SQ SCH ×2 (08:04→16:53)
[2023-07-09] MEDS: LOSARTAN 50 MG TAB PO SCH (08:04)
[2023-07-09] MEDS: BISOPROLOL-HCTZ 10-6.25 MG 1 EACH TAB PO SCH (08:31)
[2023-07-09] MEDS: ALBUTEROL NEBULIZED 2.5 MG/3 ML INHALATION SCH ×4 (09:11→20:48)
[2023-07-09] MEDS: SYMBICORT 160-4.5 MCG INHALER INHALATION SCH ×2 (09:11→20:48)
[2023-07-09 11:31] LABS: Glucose,Whole Blood 182 mg/dL (70-110)
[2023-07-09 11:33] LABS: Magnesium 1.9 mg/dL (1.5-2.4)
[2023-07-09 11:37] LABS: ALT 35 U/L (10-49); AST 53 U/L (14-35); Albumin 4.1 d/dL (3.8-4.9); Albumin/Globulin Ratio 1.86 Ratio (1.60-3.17); Alkaline Phosphatase 144 U/L (41-126); BUN/Creat Ratio 18.75 Ratio (12.00-20.00); Calcium 9.6 mg/dL (8.7-10.3); Carbon Dioxide 34.4 mmol/L (21.6-31.8); Chloride 86 mmol/L (96-109); Globulin 2.2 d/dL (1.6-3.3); Glucose 206 mg/dL (70-110); Potassium 4.5 mmol/L (3.5-5.5); Sodium 131 mmol/L (135-145); Total Bilirubin 0.9 mg/dL (0.3-1.2); Total Protein 6.3 d/dL (6.2-8.2)
--- NOTE | 2023-07-09 12:41 | P.PN ---
Subjective Progress Note Date: 07/09/23 This is a 62-year-old white male with no previous history of documented COPD, however the patient had at least a 67-[id number]-wfvy smoking history, and for the last few months the patient has been complaining of shortness of breath on exertion and intermittent episodes of lightheadedness and dizziness. Patient has a dry cough, but no fever, no chills, no hemoptysis, no chest pain. Patient is also known to drink alcohol almost on a daily basis, patient is on disability mostly because of his active issues and have multiple surgeries on his low back. Patient also had previous history of cellulitis and chronic venous stasis changes in lower extremities. Never seen a gore seamer in the past. Patient was brought into the ER, and he had no chest pain, no orthopnea, no PND, seen by cardiology on consultation, his chest x-ray showed cardiomegaly and mild pulmonary vascular congestion, BNP was elevated at 3330, patient was admitted and this consult was initiated. Looking at his labs, the patient was noted to have a bicarb of 41 which is indicative of chronic metabolic compensation for most likely a picture of chronic respiratory acidosis related to underlying COPD. Considering his smoking history and considering his symptoms, this consult was initiated. Again the patient never saw a gore seamer never been on inhalers in the past EKG on this admission showed incomplete right bundle branch block, and right ventricular hypertrophy with ST and T wave changes with prominent R in V1. Patient denies any wheezing denies any fever or chill denies any hemoptysis. The patient is seen today 07/08/2023 in follow-up on the regular medical floor. He is currently sitting up in bed. Awake and alert in no acute distress. Still dyspneic with conversation. Dyspneic with minimal exertion. Chest x-ray shows stable cardiomegaly. No evidence of congestive heart failure. No air space opacities. No pleural effusion. No pneumothorax. Limited echocardiogram revealed normal global LV systolic function and ejection fraction 55%. EKG reveals some anterior lateral T-wave inversions. Prolonged QT interval. Sodium 130. Potassium 3.7. Bicarb 41. BUN 15. Creatinine 0.64. Glucose 115. Magnesium 1.8. He remains on Solu Medrol, Symbicort and albuterol. Remains on IV diuretics. Heparin for DVT prophylaxis The patient is seen today 07/09/2023 in follow-up on the regular medical floor. He is awake and alert in no acute distress. Sitting up in bed. Feeling nearly back to his baseline. No worsening shortness of breath, cough or congestion. He does start down to 87% on room air during a 6 minute walk. He qualifies for home oxygen. Sodium 131. Potassium 4.5. Bicarb 34. BUN 15. Creatinine 0.8. Glucose 206. He is continued on Symbicort, albuterol, Solu-Medrol. Oral diuretics. Heparin for DVT prophylaxis. Objective - Vital Signs Vital signs: Vital Signs Temp 98.7 F 07/09/23 07:57 Pulse 84 07/09/23 10:15 Resp 18 07/09/23 07:57 BP 138/80 07/09/23 07:57 Pulse Ox 90 L 07/09/23 10:15 FiO2 Intake & Output 07/08/23 07/09/23 07/09/23 18:59 06:59 18:59 Weight 98 kg Other: # Voids 5 1 - Exam GENERAL EXAM: Alert, 62-year-old male, on 4 liters nasal cannula, comfortable in no apparent distress. HEAD: Normocephalic. EYES: Normal reaction of pupils, equal size. NOSE: Clear with pink turbinates. THROAT: No erythema or exudates. NECK: No masses, no JVD. CHEST: No chest wall deformity. LUNGS: Equal air entry with expiratory wheeze, few scattered crackles. CVS: S1 and S2 normal with no audible murmur, regular rhythm. ABDOMEN: No hepatosplenomegaly, normal bowel sounds, no guarding or rigidity. SPINE: No scoliosis or deformity SKIN: No rashes CENTRAL NERVOUS SYSTEM: No focal deficits, tone is normal in all 4 extremities. EXTREMITIES: There is 1+ peripheral edema. Changes of chronic venous stasis. No clubbing, no cyanosis. Peripheral pulses are intact. - Labs CBC & Chem 7: 07/07/23 13:04 07/09/23 06:56 Labs: Abnormal Lab Results - Last 24 Hours (Table) 07/08/23 07/08/23 07/09/23 Range/Units 16:26 20:06 05:40 Sodium (135-145) mmol/L Chloride (96-109) mmol/L Carbon Dioxide (21.6-31.8) mmol/L Glucose (70-110) mg/dL POC Glucose (mg/dL) 138 H 161 H 205 H (70-110) mg/dL AST (14-35) U/L Alkaline Phosphatase (41-126) U/L 07/09/23 07/09/23 Range/Units 06:56 11:30 Sodium 131 L (135-145) mmol/L Chloride 86 L (96-109) mmol/L Carbon Dioxide 34.4 H (21.6-31.8) mmol/L Glucose 206 H (70-110) mg/dL POC Glucose (mg/dL) 182 H (70-110) mg/dL AST 53 H (14-35) U/L Alkaline Phosphatase 144 H (41-126) U/L Microbiology - Last 24 Hours (Table) 07/06/23 13:45 Blood Culture - Preliminary Blood 07/06/23 14:00 Blood Culture - Preliminary Blood Assessment and Plan Assessment: Chronic shortness of breath, progressive, suspect underlying COPD, and possibly some mild component of congestive heart failure, could be systolic or diastolic in nature. Chronic cor pulmonale, suspect underlying pulmonary hypertension Chronic tobacco use Chronic alcohol use Type 2 diabetes without complications History of chronic recurrent cellulitis of lower extremities Dyslipidemia Benign essential hypertension Chronic low back pain Plan: The patient was seen and evaluated Labs and medications reviewed Cleared for discharge from the pulmonary standpoint A require home oxygen, home nebulizer Initial Symbicort, albuterol and prednisone taper Again educated regarding the importance of complete smoking cessation Follow-up in our office in 1 week I have personally seen and examined the patient, performed the documentation and the assessment and plan as written. Number of minutes spent on the visit: 10.
--- NOTE | 2023-07-09 13:15 | P.PN ---
Subjective Progress Note Date: 07/09/23 Subjective: Patient is doing well from cardiac vessel standpoint. He is feeling less short of breath since the time of admission. His lower extremity swelling has almost resolved. Physical Examination: 62-year-old male, alert and oriented no apparent distress ,Blood pressure 138/80, pulse is 84 Head: Normocephalic. Eyes: Sclerae nonicteric. Neck: Good carotid upstroke, no bruit, no jugular venous distention. Lungs: Good air entry in bilateral lung bellamy with no wheezing Heart: Regular rate and rhythm, S1-S2, no S3, no rub. No murmur. Abdomen: Soft nontender, positive bowel sounds no organomegaly. Extremities: Lower extremity edema and erythema has resolved Impression: 1. Progressive dyspnea with probable exacerbation of COPD, possible CHF, ejection fraction unknown 2. Abnormal EKG, rule out ischemic heart disease in a patient with multiple risk factors 3. History of chronic tobacco use 4. History of hypertension 5. History of diabetes 6. History of hyperlipidemia 7. History of cellulitis 8. Chronic alcohol intake Plan: Patient's echo showed an EF of 55% with No obvious regional wall motion abnormality or valvular dysfunction. He has mild LVH Continue his aspirin, atorvastatin. I will change his IV Lasix to by mouth Bumex 1 mg twice a day Discontinue his bisoprolol HCTZ Increase losartan to 100 mg daily We will obtain a nuclear stress test for tomorrow a.m. Objective - Vital Signs Vital signs: Vital Signs Temp 98.7 F 07/09/23 07:57 Pulse 84 07/09/23 13:06 Resp 18 07/09/23 07:57 BP 138/80 07/09/23 07:57 Pulse Ox 90 L 07/09/23 10:15 FiO2 Intake & Output 07/08/23 07/09/23 07/09/23 18:59 06:59 18:59 Weight 98 kg Other: # Voids 5 1 - Labs CBC & Chem 7: 07/07/23 13:04 07/09/23 06:56 Labs: Abnormal Lab Results - Last 24 Hours (Table) 07/08/23 07/08/23 07/09/23 Range/Units 16:26 20:06 05:40 Sodium (135-145) mmol/L Chloride (96-109) mmol/L Carbon Dioxide (21.6-31.8) mmol/L Glucose (70-110) mg/dL POC Glucose (mg/dL) 138 H 161 H 205 H (70-110) mg/dL AST (14-35) U/L Alkaline Phosphatase (41-126) U/L 07/09/23 07/09/23 Range/Units 06:56 11:30 Sodium 131 L (135-145) mmol/L Chloride 86 L (96-109) mmol/L Carbon Dioxide 34.4 H (21.6-31.8) mmol/L Glucose 206 H (70-110) mg/dL POC Glucose (mg/dL) 182 H (70-110) mg/dL AST 53 H (14-35) U/L Alkaline Phosphatase 144 H (41-126) U/L Microbiology - Last 24 Hours (Table) 07/06/23 13:45 Blood Culture - Preliminary Blood 07/06/23 14:00 Blood Culture - Preliminary Blood
[2023-07-09] MEDS ORDERED: CAFFEINE CITRATE 60 MG/3 ML VIAL IV PRN (13:16)
[2023-07-09] MEDS ORDERED: AMINOPHYLLINE 500 MG/20 ML VIAL IV PRN (13:16)
[2023-07-09] MEDS ORDERED: REGADENOSON 0.4 MG/5 ML SYRINGE IV PRN (13:16)
--- NOTE | 2023-07-09 15:59 | CDI ---
Documentation Clarification Form Date: 07/09/2023 03:29:46 PM From: Tomeka Cortes RN, CCDS Admit Date: 07/06/2023 05:06:00 PM Patient Name: Andres Soares Visit Number: [id number] Discharge Date: ATTENTION: The Clinical Documentation Specialists (CDI) and [facility] Coding Staff appreciate your assistance in clarifying documentation. Please respond to the clarification below the line at the bottom and electronically sign. The CDI & [facility] Coding staff will review the response and follow-up if needed. Please note: Queries are made part of the Legal Health Record. If you have any questions, please contact the author of this message via ITS. Dr. Jean George This patient has chest x-ray 07/06/23 showed cardiomegaly and mild pulmonary vascular congestion, BNP was elevated at 3330, Based on this information and the findings below, is there an additional diagnosis that is clinically appropriate for this patient? History/Risk Factors: COPD, Heart Failure, COPD, Diabetes Mellitus, Hyperlipidemia, Hypertension Chronic cor pulmonale with secondary pulmonary hypertension. Tobacco use: Current every day smoker Clinical Indicators: 62-year-old male shortness of breath and dry cough. His bicarb of 41 which is indicative of chronic metabolic compensation for most likely a picture of chronic respiratory acidosis related to underlying COPD. Chronic shortness of breath, progressive are in the pulmonary consult and subsequent progress notes. 07/07 Chest: Diminished breath sounds bilateral no crackles or rhonchi or wheezes. 07/06 Vital signs: 143/78 73 20 91 % RA 07/09 Vital signs 138/80 67 18 98.7 94% 4/L NC He does start down to 87% on room air during a 6-minute walk. He does qualify for home oxygen. Treatment: DuoNebs per orders Lasix 40MG IVQ 12 07/06-07/09 Symbicort 160-4-5 Mcg Inhaler 2 puff BID Bumex 1 MG PO BID 07/09 Solu-Medrol 40 MG IV Q 8 HRS (titrate per orders) Monitor 02 Sat's (titrate Is there an additional diagnosis that is clinically appropriate for this patient? [x ] Acute Hypoxic Respiratory Failure (pO2 <60 mm Hg or SpO2 <91% on room air) [ ] Acute Hypercapnic Respiratory Failure (pCO2 >50 and pH <7.35) [ ] Acute on Chronic Hypoxic Respiratory Failure [ ] Chronic Hypoxic Respiratory Failure [ ] Other Diagnosis, please specify [ ] Unable to determine (Template Last Revised: January 2021) MTDD
[2023-07-09 16:39] LABS: Glucose,Whole Blood 172 mg/dL (70-110)
--- NOTE | 2023-07-09 16:42 | PN ---
PROGRESS NOTE DATE OF SERVICE: 07/09/2023 SUBJECTIVE: This is a 62-year-old gentleman, who was admitted with CHF acute exacerbation, also had COPD exacerbation. The patient was closely monitored. No fever. No cough. OBJECTIVE: VITAL SIGNS: Pulse is 84, blood pressure is 129/74, respirations 18. CHEST: A few scattered rhonchi. ABDOMEN: Soft. NERVOUS SYSTEM: Nonfocal. LABORATORY DATA: Reviewed. ASSESSMENT: 1. Congestive heart failure with acute exacerbation with acute on chronic diastolic dysfunction with preserved ejection fraction of 50%. 3. Chronic obstructive pulmonary disease acute exacerbation. 4. Hypomagnesemia. 5. Chronic alcohol abuse. 6. Hypertension. RECOMMENDATIONS: I recommend to continue current management . Continue rest of the medications. Repeat labs. Prognosis guarded. Further recommendations to follow. MMODL / IJN: [id number] / MTDD
[2023-07-09] MEDS: BUMETANIDE 1 MG TAB PO SCH (16:53)
[2023-07-09 20:44] LABS: Glucose,Whole Blood 297 mg/dL (70-110)
[2023-07-10] MEDS: methylPREDNISolone SOD SUCCI 40 MG/ML 1 ML VIAL IV SCH ×2 (01:26→08:01)
[2023-07-10] MEDS: HEPARIN SODIUM,PORCINE 5,000 UNIT/ML 1 ML VIAL SQ SCH ×2 (01:26→08:00)
[2023-07-10 06:26] LABS: Glucose,Whole Blood 188 mg/dL (70-110)
[2023-07-10] MEDS: INSULIN ASPART (NovoLOG) 100 UNIT/ML VIAL SQ SCH ×2 (06:42→14:05)
[2023-07-10] MEDS: ASPIRIN 81 MG PO SCH (08:00)
[2023-07-10] MEDS: CITALOPRAM HYDROBROMIDE 20 MG TAB PO SCH (08:00)
[2023-07-10] MEDS: ATORVASTATIN 40 MG TAB PO SCH (08:01)
[2023-07-10] MEDS: POTASSIUM CHLORIDE ER 20 MEQ TAB.ER PO SCH (08:01)
[2023-07-10] MEDS: THIAMINE 100 MG TAB PO SCH (08:01)
[2023-07-10] MEDS: BUMETANIDE 1 MG TAB PO SCH (08:01)
[2023-07-10 08:29] VITALS: RESP 16
[2023-07-10] MEDS: SYMBICORT 160-4.5 MCG INHALER INHALATION SCH (08:37)
[2023-07-10] MEDS: ALBUTEROL NEBULIZED 2.5 MG/3 ML INHALATION SCH ×2 (08:37→12:07)
[2023-07-10] MEDS ORDERED: LOSARTAN 50 MG TAB PO SCH (09:00)
[2023-07-10 11:25] LABS: Calcium 9.6 mg/dL (8.7-10.3); Carbon Dioxide 34.4 mmol/L (21.6-31.8); Chloride 88 mmol/L (96-109); Glucose 178 mg/dL (70-110); HCT 48.5 % (39.6-50.0); HGB 16.2 d/dL (13.0-17.0); MCH 35.2 pg (27.0-32.0); MCHC 33.4 d/dL (32.0-37.0); MCV 105.4 FL (80.0-97.0); Mean Platelet Volume 10.5 FL (9.5-12.2); NRBC Per 100 WBC 0 X 10*3/uL (0.00-0.01); Platelet Count 179 X 10*3/uL (140-440); Potassium 4.4 mmol/L (3.5-5.5); Sodium 133 mmol/L (135-145); WBC 9.43 X 10*3/uL (4.50-10.00)
[2023-07-10 11:30] LABS: Glucose,Whole Blood 182 mg/dL (70-110)
--- NOTE | 2023-07-10 12:53 | P.PN ---
Subjective Progress Note Date: 07/10/23 Subjective: Patient is doing well from cardiac vessel standpoint. He is feeling less short of breath since the time of admission. His lower extremity swelling has almost resolved. Physical Examination: 62-year-old male, alert and oriented no apparent distress ,Blood pressure 138/80, pulse is 84 Head: Normocephalic. Eyes: Sclerae nonicteric. Neck: Good carotid upstroke, no bruit, no jugular venous distention. Lungs: Good air entry in bilateral lung bellamy with no wheezing Heart: Regular rate and rhythm, S1-S2, no S3, no rub. No murmur. Abdomen: Soft nontender, positive bowel sounds no organomegaly. Extremities: Lower extremity edema and erythema has resolved Impression: 1. Progressive dyspnea with probable exacerbation of COPD, possible CHF, ejection fraction unknown 2. Abnormal EKG, rule out ischemic heart disease in a patient with multiple risk factors 3. History of chronic tobacco use 4. History of hypertension 5. History of diabetes 6. History of hyperlipidemia 7. History of cellulitis 8. Chronic alcohol intake Plan: Patient's echo showed an EF of 55% with No obvious regional wall motion abnormality or valvular dysfunction. He has mild LVH Continue his aspirin, atorvastatin. Continue Bumex 1 mg twice a day Discontinue his bisoprolol HCTZ, due to low resting heart rate Continue losartan to 100 mg daily Okay to be discharged from cardiac vessel standpoint Recommend outpatient follow-up with Dr. Hou. He is recommended to have ischemic evaluation either by cardiac catheterization or a nuclear stress test due to his risk factors and recent ECG changes. Objective - Vital Signs Vital signs: Vital Signs Temp 97.6 F 07/10/23 07:16 Pulse 84 07/10/23 12:17 Resp 16 07/10/23 07:16 BP 132/79 07/10/23 07:16 Pulse Ox 96 07/10/23 08:39 FiO2 21 07/10/23 08:39 Intake & Output 07/09/23 07/10/23 07/10/23 18:59 06:59 18:59 Weight 95 kg Other: # Voids 2 4 - Labs CBC & Chem 7: 07/10/23 06:10 07/10/23 06:10 Labs: Abnormal Lab Results - Last 24 Hours (Table) 09/06/23 09/06/23 09/07/23 Range/Units 16:37 20:42 06:10 MCV 105.4 H (80.0-97.0) FL MCH 35.2 H (27.0-32.0) pg RDW 15.0 H (11.5-14.5) % Sodium (135-145) mmol/L Chloride (96-109) mmol/L Carbon Dioxide (21.6-31.8) mmol/L BUN/Creatinine Ratio (12.00-20.00) Ratio Glucose (70-110) mg/dL POC Glucose (mg/dL) 172 H 297 H (70-110) mg/dL 07/10/23 07/10/23 07/10/23 Range/Units 06:10 06:21 11:29 MCV (80.0-97.0) FL MCH (27.0-32.0) pg RDW (11.5-14.5) % Sodium 133 L (135-145) mmol/L Chloride 88 L (96-109) mmol/L Carbon Dioxide 34.4 H (21.6-31.8) mmol/L BUN/Creatinine Ratio 30.00 H (12.00-20.00) Ratio Glucose 178 H (70-110) mg/dL POC Glucose (mg/dL) 188 H 182 H (70-110) mg/dL Microbiology - Last 24 Hours (Table) 07/06/23 13:45 Blood Culture - Preliminary Blood 07/06/23 14:00 Blood Culture - Preliminary Blood
--- NOTE | 2023-07-10 12:57 | P.PN ---
Subjective Progress Note Date: 07/10/23 This is a 62-year-old white male with no previous history of documented COPD, however the patient had at least a [id number] smoking history, and for the last few months the patient has been complaining of shortness of breath on exertion and intermittent episodes of lightheadedness and dizziness. Patient has a dry cough, but no fever, no chills, no hemoptysis, no chest pain. Patient is also known to drink alcohol almost on a daily basis, patient is on disability mostly because of his active issues and have multiple surgeries on his low back. Patient also had previous history of cellulitis and chronic venous stasis changes in lower extremities. Never seen a reel stripper in the past. Patient was brought into the ER, and he had no chest pain, no orthopnea, no PND, seen by cardiology on consultation, his chest x-ray showed cardiomegaly and mild pulmonary vascular congestion, BNP was elevated at 3330, patient was admitted and this consult was initiated. Looking at his labs, the patient was noted to have a bicarb of 41 which is indicative of chronic metabolic compensation for most likely a picture of chronic respiratory acidosis related to underlying COPD. Considering his smoking history and considering his symptoms, this consult was initiated. Again the patient never saw a reel stripper never been on inhalers in the past EKG on this admission showed incomplete right bundle branch block, and right ventricular hypertrophy with ST and T wave changes with prominent R in V1. Patient denies any wheezing denies any fever or chill denies any hemoptysis. The patient is seen today 07/08/2023 in follow-up on the regular medical floor. He is currently sitting up in bed. Awake and alert in no acute distress. Still dyspneic with conversation. Dyspneic with minimal exertion. Chest x-ray shows stable cardiomegaly. No evidence of congestive heart failure. No air space opacities. No pleural effusion. No pneumothorax. Limited echocardiogram revealed normal global LV systolic function and ejection fraction 55%. EKG reveals some anterior lateral T-wave inversions. Prolonged QT interval. Sodium 130. Potassium 3.7. Bicarb 41. BUN 15. Creatinine 0.64. Glucose 115. Magnesium 1.8. He remains on Solu Medrol, Symbicort and albuterol. Remains on IV diuretics. Heparin for DVT prophylaxis The patient is seen today 07/09/2023 in follow-up on the regular medical floor. He is awake and alert in no acute distress. Sitting up in bed. Feeling nearly back to his baseline. No worsening shortness of breath, cough or congestion. He does start down to 87% on room air during a 6 minute walk. He qualifies for home oxygen. Sodium 131. Potassium 4.5. Bicarb 34. BUN 15. Creatinine 0.8. Glucose 206. He is continued on Symbicort, albuterol, Solu-Medrol. Oral diuretics. Heparin for DVT prophylaxis. The patient is seen today 07/10/2023 and follow-up on the regular medical floor. He is sitting up at the bedside. Awake and alert in no acute distress. Leigha ntaining O2 saturations in the 90s on 2 L/m per nasal cannula. White count 9.4. Hemoglobin 16.2. Platelets 179. Sodium 133. Potassium 4.4. Bicarb 34. BUN 18. Creatinine 0.6. Glucose 178. He is continued on Symbicort, albuterol, Solu-Medrol. Objective - Vital Signs Vital signs: Vital Signs Temp 97.6 F 07/10/23 07:16 Pulse 84 07/10/23 12:17 Resp 16 07/10/23 07:16 BP 132/79 07/10/23 07:16 Pulse Ox 96 07/10/23 08:39 FiO2 21 07/10/23 08:39 Intake & Output 07/09/23 07/10/23 07/10/23 18:59 06:59 18:59 Weight 95 kg Other: # Voids 2 4 - Exam GENERAL EXAM: Alert, pleasant 62-year-old male, on 2 liters nasal cannula, comfortable in no apparent distress. HEAD: Normocephalic. EYES: Normal reaction of pupils, equal size. NOSE: Clear with pink turbinates. THROAT: No erythema or exudates. NECK: No masses, no JVD. CHEST: No chest wall deformity. LUNGS: Equal air entry with expiratory wheeze, few scattered crackles. CVS: S1 and S2 normal with no audible murmur, regular rhythm. ABDOMEN: No hepatosplenomegaly, normal bowel sounds, no guarding or rigidity. SPINE: No scoliosis or deformity SKIN: No rashes CENTRAL NERVOUS SYSTEM: No focal deficits, tone is normal in all 4 extremities. EXTREMITIES: There is 1+ peripheral edema. Changes of chronic venous stasis. No clubbing, no cyanosis. Peripheral pulses are intact. - Labs CBC & Chem 7: 07/10/23 06:10 07/10/23 06:10 Labs: Abnormal Lab Results - Last 24 Hours (Table) 07/09/23 07/09/23 07/10/23 Range/Units 16:37 20:42 06:10 MCV 105.4 H (80.0-97.0) FL MCH 35.2 H (27.0-32.0) pg RDW 15.0 H (11.5-14.5) % Sodium (135-145) mmol/L Chloride (96-109) mmol/L Carbon Dioxide (21.6-31.8) mmol/L BUN/Creatinine Ratio (12.00-20.00) Ratio Glucose (70-110) mg/dL POC Glucose (mg/dL) 172 H 297 H (70-110) mg/dL 07/10/23 07/10/23 07/10/23 Range/Units 06:10 06:21 11:29 MCV (80.0-97.0) FL MCH (27.0-32.0) pg RDW (11.5-14.5) % Sodium 133 L (135-145) mmol/L Chloride 88 L (96-109) mmol/L Carbon Dioxide 34.4 H (21.6-31.8) mmol/L BUN/Creatinine Ratio 30.00 H (12.00-20.00) Ratio Glucose 178 H (70-110) mg/dL POC Glucose (mg/dL) 188 H 182 H (70-110) mg/dL Microbiology - Last 24 Hours (Table) 07/06/23 13:45 Blood Culture - Preliminary Blood 07/06/23 14:00 Blood Culture - Preliminary Blood Assessment and Plan Assessment: Acute hypoxemic respiratory failure secondary to suspected underlying COPD, and possibly some mild component of diastolic congestive heart failure. Chronic cor pulmonale, suspect underlying pulmonary hypertension Chronic tobacco use Chronic alcohol use Type 2 diabetes without complications History of chronic recurrent cellulitis of lower extremities Dyslipidemia Benign essential hypertension Chronic low back pain Plan: The patient was seen and evaluated Labs and medications reviewed Cleared for discharge from the pulmonary standpoint May require home oxygen, home nebulizer Continue Symbicort, albuterol and prednisone taper Again educated regarding the importance of complete smoking cessation Follow-up in our office in 1 week I have personally seen and examined the patient, performed the documentation and the assessment and plan as written. Number of minutes spent on the visit: 10.
[2023-07-10 13:01] LABS: Basophils # (A) 0.02 X 10*3/uL (0.00-0.10); Basophils % (A) 0.2 %; Eosinophils # (A) 0 X 10*3/uL (0.04-0.35); Eosinophils % (A) 0 %; Lymphocytes % (A) 9.5 %; Macrocytosis (M) 2+; Monocytes # (A) 0.41 X 10*3/uL (0.20-1.00); Monocytes % (A) 4.3 %; Neutrophils # (A) 8.05 X 10*3/uL (1.80-7.70); Neutrophils % (A) 85.5 %
[2023-07-10 13:32] VITALS: BP 125/67; PULSE 73; TEMP 98.6
--- NOTE | 2023-07-11 15:09 | P.DS ---
Providers Date of admission: 07/06/23 17:06 Expected date of discharge: 07/10/23 Attending physician: Cecil Rosales MD Consults: 07/06/23 17:06 Consult Physician Stat Consulting Provider: Nicolas Leon Consult Reason/Comments: chf Do you want consulting provider notified?: Yes 07/07/23 12:51 Consult Physician Routine Consulting Provider: Carrie Corrigan Consult Reason/Comments: copd Do you want consulting provider notified?: Yes Primary care physician: Christiano Alaniz Hospital Course: Final diagnosis -Acute exacerbation CHF with diastolic dysfunction with preserved EF, echo shows EF of 55% -Hyponatremia; likely related to fluid overload; improved -COPD, acute exacerbation -Hypomagnesemia; likely related to alcohol abuse, improved -Chronic alcohol abuse; concern for withdrawal -Hypertension history -Diabetes mellitus type 2 -Hyperlipidemia -Depression -Continued ongoing nicotine dependence -GI prophylaxis -DVT prophylaxis -full code Discharge disposition Patient is being discharged in a stable condition with guarded prognosis to home. Patient will follow-up with his primary care provider in the outpatient setting upon discharge. Patient is to follow-up with pulmonary and cardiology outpatient as scheduled. Total time taken is greater than 35 minutes. Hospital course This is a 62-year-old male who was recently admitted with increased shortness of breath with CHF exacerbation. Patient also evaluated by cardiology and pulmonary with COPD exacerbation. Patient requiring oxygen and will continue with 2 L via nasal cannula to manage COPD/CHF on discharge. Patient was diuresed with Lasix and reports to feeling improved and has been cleared by consultations for discharge. Patient would like to go home. Please refer to other consultation notes for further HPI. Patient also continues to smoke as well as drink alcohol mostly daily and was maintained on CIWA protocol and has been counseled extensively on complete cessation of alcohol and tobacco use and exposure. Currently no reports of chest pain, shortness of breath, or palpitations. Patient is afebrile. No reports of nausea or vomiting and patient is tolerating diet. Patient will be discharged home today. Guarded prognosis and high risk for readmissions given patient's noncompliance and significant comorbidities Physical exam: Gen: This is a 62-year-old male who is awake, alert and oriented 3, well- developed, well-nourished HEENT: Head is atraumatic, normocephalic. Pupils equal, round. Sclerae is anicteric. NECK: Supple. No JVD. No lymphadenopathy. No thyromegaly. LUNGS: Diminished breath sounds bilaterally with no wheezes, course scattered rhonchi noted. No intercostal retractions. HEART: Regular rate and rhythm. No murmur. ABDOMEN: Soft. Obese. Bowel sounds are present. No masses. No tenderness. EXTREMITIES: No pedal edema. No calf tenderness. NEUROLOGICAL: Patient is awake, alert and oriented x3. Cranial nerves 2 through 12 are grossly intact. Please refer to medication reconciliation sheet for a list of medications. The impression and plan of care has been dictated by Diane Hart, Nurse Practitioner as directed. Dr. Tera MD I have performed a history and examination and MDM of this patient, discussed the same with the dictator, and agree with the dictator's assessment and plan as written ,documented as a scribe. Based on total visit time, I have performed more than 50% of the visit. Patient Condition at Discharge: Stable Plan - Discharge Summary Discharge Rx Participant: No New Discharge Prescriptions: New Aspirin 81 mg PO DAILY #30 tab Bumetanide [BUMEX] 1 mg PO BID@0900,1600 #60 tab Thiamine [Vitamin B-1] 100 mg PO DAILY #30 tab predniSONE 10 mg PO DIRECTED #30 tab Budesonide-Formot 160-4.5 Mcg [Symbicort 160-4.5 Mcg Inhaler] 2 puff INHALATION RT-BID 30 Days #1 each Acetaminophen Tab [Tylenol] 650 mg PO Q6HR PRN tab PRN Reason: Mild Pain Or Fever > 100.5 Continue Bisoprolol-Hctz 10-6.25 mg [Ziac 10-6.25 MG] 1 tab PO DAILY Citalopram Hydrobromide [CeleXA] 20 mg PO DAILY Sildenafil Citrate 20 mg PO DAILY PRN PRN Reason: E.D. metFORMIN HCL [Glucophage] 500 mg PO BID Potassium Chloride ER [K-Dur 20] 20 meq PO DAILY Rosuvastatin Calcium 5 mg PO DAILY traZODone HCL [Desyrel] 50 mg PO HS PRN PRN Reason: Insomnia Discontinued Furosemide [Lasix] 20 mg PO BID Losartan Potassium 50 mg PO DAILY Discharge Medication List Bisoprolol-Hctz 10-6.25 mg [Ziac 10-6.25 MG] 1 tab PO DAILY 12/12/17 [History] Citalopram Hydrobromide [CeleXA] 20 mg PO DAILY 05/30/23 [History] Potassium Chloride ER [K-Dur 20] 20 meq PO DAILY 05/30/23 [History] Rosuvastatin Calcium 5 mg PO DAILY 05/30/23 [History] Sildenafil Citrate 20 mg PO DAILY PRN 05/30/23 [History] metFORMIN HCL [Glucophage] 500 mg PO BID 05/30/23 [History] traZODone HCL [Desyrel] 50 mg PO HS PRN 07/06/23 [History] Acetaminophen Tab [Tylenol] 650 mg PO Q6HR PRN tab 07/10/23 [Rx] Aspirin 81 mg PO DAILY #30 tab 07/10/23 [Rx] Budesonide-Formot 160-4.5 Mcg [Symbicort 160-4.5 Mcg Inhaler] 2 puff INHALATION RT-BID 30 Days #1 each 07/10/23 [Rx] Bumetanide [BUMEX] 1 mg PO BID@0900,1600 #60 tab 07/10/23 [Rx] Thiamine [Vitamin B-1] 100 mg PO DAILY #30 tab 07/10/23 [Rx] predniSONE 10 mg PO DIRECTED #30 tab 07/10/23 [Rx] Follow up Appointment(s)/Referral(s): Carrie Corrigan MD [STAFF PHYSICIAN] - 07/17/23 8:30 am Nicolas Leon MD [STAFF PHYSICIAN] - 1 Week (Office will call you with your appointment.) [facility],Equipment [NON-STAFF] - As Needed (Call [facility] to arrange delivery of the oxygen concentrator as soon as you know when you will be home. They will deliver today. ) Nonstaff,Physician [REFERRING] - 1-2 days Patient Instructions/Handouts: Heart Failure (DC), How to Stop Smoking (DC), Hyponatremia (DC), Abuse of Alcohol (DC), Hypomagnesemia (DC) Activity/Diet/Wound Care/Special Instructions: Activity Limited until follow-up Follow-up with primary care provider on discharge Follow-up with pulmonary outpatient for further testing Follow-up with cardiology patient Continue taking medications as prescribed Avoid tobacco use and exposure especially while having oxygen in the home Strongly recommend avoiding all alcohol intake Discharge Disposition: HOME SELF-CARE
== END 2023-07-10 14:14 | disposition home or self-care (01) | DRG 291 ==
LOC: EC 14:50 → 4SSUR 17:06
PROVIDERS: ADMIT Internal Medicine; ATTEND Internal Medicine
DX: I11.0 Hypertensive heart disease with heart failure (principal); I50.33 Acute on chronic diastolic (congestive) heart failure; J96.01 Acute respiratory failure with hypoxia; J96.12 Chronic respiratory failure with hypercapnia; J44.1 Chronic obstructive pulmonary disease with (acute) exacerbation; E87.1 Hypo-osmolality and hyponatremia; L03.116 Cellulitis of left lower limb; L03.115 Cellulitis of right lower limb; I50.82 Biventricular heart failure; I27.29 Other secondary pulmonary hypertension; E11.9 Type 2 diabetes mellitus without complications; F10.20 Alcohol dependence, uncomplicated; Z20.822 Contact with and (suspected) exposure to COVID-19; E78.5 Hyperlipidemia, unspecified; I87.8 Other specified disorders of veins; E83.42 Hypomagnesemia; I45.10 Unspecified right bundle-branch block; G89.29 Other chronic pain; M54.50 Low back pain, unspecified; F32.A Depression, unspecified; F17.210 Nicotine dependence, cigarettes, uncomplicated; Z71.6 Tobacco abuse counseling; Z79.84 Long term (current) use of oral hypoglycemic drugs; Z79.899 Other long term (current) drug therapy; Z71.41 Alcohol abuse counseling and surveillance of alcoholic
CPT/HCPCS: 36415; 71045; 71046; 80048; 80053; 80061; 83605; 83735; 83880; 84484; 85025; 85379; 85610; 85730; 87040; 87636; 93005; 93308; 94640; 94760; 96361; 96365; 96372; 96375; 99285

== ENCOUNTER 2024-04-08 17:46 | Emergency (ER) | payer MEDICARE ==
[2024-04-08 17:55] VITALS: RESP 18; TEMP 98.4
--- NOTE | 2024-04-08 18:04 | ED ---
Fall HPI - General Chief Complaint: Fall Stated Complaint: ETOH, Fall Time Seen by Provider: 04/08/24 17:50 Source: patient, EMS Mode of arrival: EMS - History of Present Illness Initial Comments: This patient is a 63-year-old man who states he has history of neuropathy and as result falls frequently. He is here to have evaluation after he had a fall. The patient states that he had been sitting in his driveway. He then tried to get up and use his chair as a walker. He states that he tripped over it fell backwards striking his head. The patient was observed by his neighbor who states that he had lost consciousness for up to 2 minutes. The patient does acknowledge some headache but denies any other pains. He denies new neurologic symptoms though he does have numbness to the feet bilaterally longstanding as symptom of his neuropathy. The patient states that he did have 3 drinks today and that may have contributed to falling MD Complaint: fall -: hour(s) Fall From: standing When Fall Occurred: 1 hour [employer] Fall Witnessed: yes, by bystander Place Fall Occurred: home Loss of Consciousness: yes, minute(s) (2) Prolonged Down Time?: no Symptoms Prior to Fall: dizziness Location: head Severity: mild Context: tripped/slipped, alcohol use, history of frequent falls Associated Symptoms: headache - Related Data Home Medications Medication Instructions Recorded Confirmed Bisoprolol-Hctz 10-6.25 mg [Ziac 1 tab PO DAILY 12/12/17 04/08/24 10-6.25 MG] Citalopram Hydrobromide [CeleXA] 20 mg PO DAILY 05/30/23 04/08/24 Potassium Chloride ER [K-Dur 20] 20 meq PO DAILY 05/30/23 04/08/24 Rosuvastatin Calcium 5 mg PO DAILY 05/30/23 04/08/24 metFORMIN HCL [Glucophage] 500 mg PO BID 05/30/23 04/08/24 traZODone HCL [Desyrel] 50 mg PO HS PRN 07/06/23 04/08/24 Fluticasone/Umeclidin/Vilanter 1 puff INHALATION RT-DAILY 04/08/24 04/08/24 [Trelegy Ellipta 100-62.5-25] Losartan [Cozaar] 50 mg PO DAILY 04/08/24 04/08/24 Thiamine [Vitamin B-1] 100 mg PO DAILY 04/08/24 04/08/24 Previous Rx's Medication Instructions Recorded Aspirin 81 mg PO DAILY #30 tab 07/10/23 Bumetanide [BUMEX] 1 mg PO BID@0900,1600 #60 tab 07/10/23 Allergies Allergy/AdvReac Type Severity Reaction Status Date / Time No Known Allergies Allergy Verified 04/08/24 18:45 Review of Systems ROS Statement: Those systems with pertinent positive or pertinent negative responses have been documented in the HPI. ROS Other: All systems not noted in ROS Statement are negative. Constitutional: Denies: fever, weakness Eyes: Denies: vision change Respiratory: Denies: cough, dyspnea Cardiovascular: Denies: chest pain, palpitations, edema Gastrointestinal: Denies: abdominal pain, nausea, vomiting, diarrhea Genitourinary: Denies: dysuria, hematuria, testicular pain Musculoskeletal: Denies: back pain Skin: Denies: rash Neurological: Reports: headache. Denies: weakness, numbness, paresthesias, confusion Hematological/Lymphatic: Denies: easy bleeding Past Medical History Past Medical History: Heart Failure, COPD, Diabetes Mellitus, Eye Disorder, Hyperlipidemia, Hypertension Additional Past Medical History / Comment(s): Bilateral lower extremity cellulitis. History of Any Multi-Drug Resistant Organisms: None Reported Past Surgical History: Back Surgery Additional Past Surgical History / Comment(s): 3 back surgeries, left and right cataract Past Anesthesia/Blood Transfusion Reactions: Previous Problems w/ Anesthesia Additional Past Anesthesia/Blood Transfusion Reaction / Comment(s): diff. to wake up one time with back surgery Past Psychological History: Depression Smoking Status: Current every day smoker Past Alcohol Use History: Daily Past Drug Use History: Marijuana - Past Family History Mother Family Medical History: No Reported History General Exam General appearance: alert, in no apparent distress Head exam: Present: atraumatic (Patient has contusion and abrasion to the posterior scalp left side. No obvious deformity. Moderate tenderness.), normocephalic Eye exam: Present: normal appearance. Absent: scleral icterus, conjunctival injection ENT exam: Present: normal oropharynx Neck exam: Present: normal inspection, full ROM. Absent: tenderness, meningismus Respiratory exam: Present: normal lung sounds bilaterally. Absent: respiratory distress, wheezes, rales, rhonchi, stridor, chest wall tenderness, accessory muscle use Cardiovascular Exam: Present: regular rate, normal rhythm, normal heart sounds. Absent: systolic murmur, diastolic murmur, rubs, gallop GI/Abdominal exam: Present: soft. Absent: distended, tenderness, guarding, rebound, rigid, mass Extremities exam: Present: normal inspection, normal capillary refill. Absent: pedal edema, calf tenderness Back exam: Present: normal inspection. Absent: CVA tenderness (R), CVA tenderness (L) Neurological exam: Present: alert, oriented X3, CN II-XII intact. Absent: motor sensory deficit Skin exam: Present: warm, dry, normal color, abrasion (Scalp). Absent: rash Course Vital Signs 04/08/24 04/08/24 17:51 20:41 Temperature 98.4 F Pulse Rate 65 63 Respiratory 18 18 Rate Blood Pressure 109/61 107/70 O2 Sat by Pulse 95 99 Oximetry Medical Decision Making - Medical Decision Making The patient had CT scan of the brain which I interpreted as negative for acute bony trauma. Negative for acute intracranial hemorrhage. Was pt. sent in by a medical professional or institution (, PA, BOAT CLEANER, urgent care, hospital, or halfway...) When possible be specific @ -[No] Did you speak to anyone other than the patient for history (EMS, parent, family, police, friend...)? What history was obtained from this source @ -[No] Did you review nursing and triage notes (agree or disagree)? Why? @ -[I reviewed and agree with nursing and triage notes] Were old charts reviewed (outside hosp., previous admission, EMS record, old EKG, old radiological studies, urgent care reports/EKG's, halfway records)? Report findings @ -[No old charts were reviewed] Differential Diagnosis (chest pain, altered mental status, abdominal pain women, abdominal pain men, vaginal bleeding, weakness, fever, dyspnea, syncope, headache, dizziness, GI bleed, back pain, seizure, CVA, palpatations, mental health, musculoskeletal)? @ -[Differential Musculoskeletal Muscular strain, contusion, ligament sprain, fracture, arthritis, septic arthritis, bursitis, cellulitis, muscle spasm, nerve compression, DVT, arterial occlusion, herpes zoster, electrolyte abnormality, tumor.... This is not meant to be in all inclusive list EKG interpreted by me (3pts min.). @ -[I interpreted as above] X-rays interpreted by me (1pt min.). @ -[None done] CT interpreted by me (1pt min.). @ -[I interpreted as above U/S interpreted by me (1pt. min.). @ -[None done] What testing was considered but not performed or refused? (CT, X-rays, U/S, labs)? Why? @ -[None] What meds were considered but not given or refused? Why? @ -[None] Did you discuss the management of the patient with other professionals (professionals i.e. , PA, BOAT CLEANER, lab, RT, psych nurse, social science professor, tool maker, teacher, mounted police officer, complex case manager)? Give summary @ -[Case discussed with admitting physician and treatment recommendations incorporated Was smoking cessation discussed for >3mins.? @ -[No] Was critical care preformed (if so, how long)? @ -[No] Were there social determinants of health that impacted care today? How? (Homelessness, low income, unemployed, alcoholism, drug addiction, transporta tion, low edu. Level, literacy, decrease access to med. care, halfway, rehab)? @ -[No] Was there de-escalation of care discussed even if they declined (Discuss DNR or withdrawal of care, Hospice)? DNR status @ -[No] What co-morbidities impacted this encounter? (DM, HTN, Smoking, COPD, CAD, Cancer, CVA, ARF, Chemo, Hep., AIDS, mental health diagnosis, sleep apnea, morbid obesity)? @ -[None] Was patient admitted / discharged? Hospital course, mention meds given and route, prescriptions, significant lab abnormalities, going to OR and other pertinent info. @ -[Patient is 63-year-old man here after ground-level fall. The workup does reveal multiple electrolyte abnormalities as well as patient being intoxicated and not safe fore discharge Undiagnosed new problem with uncertain prognosis? @ -[No] Drug Therapy requiring intensive monitoring for toxicity (Heparin, Nitro, Insulin, Cardizem)? @ -[No] Were any procedures done? @ -[No] Diagnosis/symptom? @ -[Acute alcohol intoxication Closed head injury, mild Hypomagnesemia Hypokalemia Acute kidney injury Acute, or Chronic, or Acute on Chronic? @ -[Acute Uncomplicated (without systemic symptoms) or Complicated (systemic symptoms)? @ -[Uncomplicated Side effects of treatment? @ -[No] Exacerbation, Progression, or Severe Exacerbation? @ -[No] Poses a threat to life or bodily function? How? (Chest pain, [place], [place], pneumonia, PE, COPD, DKA, ARF, appy, cholecystitis, CVA, Diverticulitis, Homicidal, Suicidal, threat to staff... and all critical care pts) @ -[No] - Lab Data Result diagrams: 04/08/24 18:21 04/08/24 18:21 Lab Results 04/08/24 04/08/24 04/08/24 Range/Units 18:21 18:21 18:21 WBC 7.6 (3.8-10.6) k/uL RBC 3.47 L (4.30-5.90) m/uL Hgb 12.2 L (13.0-17.5) gm/dL Hct 34.6 L (39.0-53.0) % MCV 99.6 (80.0-100.0) fL MCH 35.2 H (25.0-35.0) pg MCHC 35.3 (31.0-37.0) g/dL RDW 13.8 (11.5-15.5) % Plt Count 271 (150-450) k/uL MPV 8.0 Neutrophils % 61 % Lymphocytes % 25 % Monocytes % 7 % Eosinophils % 3 % Basophils % 1 % Neutrophils # 4.7 (1.3-7.7) k/uL Lymphocytes # 1.9 (1.0-4.8) k/uL Monocytes # 0.6 (0-1.0) k/uL Eosinophils # 0.2 (0-0.7) k/uL Basophils # 0.1 (0-0.2) k/uL Sodium 129 L (137-145) mmol/L Potassium 3.3 L (3.5-5.1) mmol/L Chloride 92 L (98-107) mmol/L Carbon Dioxide 25 (22-30) mmol/L Anion Gap 12 mmol/L BUN 40 H (9-20) mg/dL Creatinine 2.42 H (0.66-1.25) mg/dL Est GFR (CKD-EPI)AfAm 32 (>60 ml/min/1.73 sqM) Est GFR (CKD-EPI)NonAf 28 (>60 ml/min/1.73 sqM) Glucose 88 (74-99) mg/dL Calcium 9.0 (8.4-10.2) mg/dL Magnesium 1.5 L (1.6-2.3) mg/dL Total Bilirubin 1.1 (0.2-1.3) mg/dL AST 23 (17-59) U/L ALT 12 (4-49) U/L Alkaline Phosphatase 92 (38-126) U/L Troponin I <0.012 (0.000-0.034) ng/mL Total Protein 6.3 (6.3-8.2) g/dL Albumin 4.1 (3.5-5.0) g/dL Serum Alcohol 185 mg/dL - EKG Data -: EKG Interpreted by Me EKG shows normal: sinus rhythm (With occasional PVC), intervals (Normal), QRS complexes (Incomplete right bundle branch block), ST-T waves (There are anterior T inversions.) Rate: normal (Rate 62 bpm) Interpretation: other (Similar to comparison ECG) Disposition Clinical Impression: Fall, Hypomagnesemia, Hypokalemia, Alcohol intoxication, Minor head injury, Acute kidney injury Disposition: ADMITTED IP TO THIS HOSP Condition: Good Instructions (If sedation given, give patient instructions): Head Injury (ED), Hypomagnesemia (ED) Additional Instructions: As we discussed, you must follow-up to have the creatinine rechecked in 2 to 3 days. Cut back your diuretic use from 2 pills to 1 pill daily until the labs are rechecked. Is patient prescribed a controlled substance at d/c from ED?: No Referrals: Christiano Alaniz MD [Primary Care Provider] - 1-2 days
[2024-04-08 18:44] LABS: Basophils # (A) 0.1 k/uL (0-0.2); Basophils % (A) 1 %; Eosinophils # (A) 0.2 k/uL (0-0.7); Eosinophils % (A) 3 %; HCT 34.6 % (39.0-53.0); HGB 12.2 gm/dL (13.0-17.5); Lymphocytes # (A) 1.9 k/uL (1.0-4.8); Lymphocytes % (A) 25 %; MCH 35.2 pg (25.0-35.0); MCHC 35.3 g/dL (31.0-37.0); MCV 99.6 fL (80.0-100.0); Monocytes # (A) 0.6 k/uL (0-1.0); Monocytes % (A) 7 %; Neutrophils # (A) 4.7 k/uL (1.3-7.7); Neutrophils % (A) 61 %; Platelet Count 271 k/uL (150-450); RBC 3.47 m/uL (4.30-5.90); RDW 13.8 % (11.5-15.5); WBC 7.6 k/uL (3.8-10.6)
[2024-04-08 18:59] LABS: ALT 12 U/L (4-49); AST 23 U/L (17-59); African American GFR (CKD) 32 (>60 ml/min/1.73 sqM); Albumin 4.1 g/dL (3.5-5.0); Alkaline Phosphatase 92 U/L (38-126); Anion Gap 12 mmol/L; Blood Urea Nitrogen 40 mg/dL (9-20); Carbon Dioxide 25 mmol/L (22-30); Chloride 92 mmol/L (98-107); Glucose 88 mg/dL (74-99); Magnesium 1.5 mg/dL (1.6-2.3); Non-African American GFR(CKD) 28 (>60 ml/min/1.73 sqM); Potassium 3.3 mmol/L (3.5-5.1); Sodium 129 mmol/L (137-145); Total Bilirubin 1.1 mg/dL (0.2-1.3); Total Protein 6.3 g/dL (6.3-8.2)
--- NOTE | 2024-04-08 19:14 | CT ---
EXAMINATION TYPE: CT brain wo con DATE OF EXAM: 04/08/2024 COMPARISON: None HISTORY: 63-year-old male with pain after fall and hit back of head TECHNIQUE: Examination was done in axial plane without intravenous contrast. Coronal and sagittal r econstructions performed. CT DLP: 1184 mGycm Automated exposure control for dose reduction was used. FINDINGS: There is no evidence of acute intracranial hemorrhage, acute ischemic changes, mass, mass-effect, or extra-axial fluid collection. There is no effacement of cerebral sulci or basal subarachnoid cister ns. There is no hydrocephalus. There is no midline shift. King-white matter distinction is preserv ed. Complete opacification left maxillary sinus. Rightward nasal septal deviation. Scattered mild mucosal thickening ethmoid air cells. Posterior opacification left sphenoid sinus. Orbits and globes are int act. Mastoid air cells well pneumatized. There appears to be a mild left posterior scalp contusion. Punctate foci of air suggests some associa audra scalp laceration. No underlying calvarial fracture. IMPRESSION: 1. Mild left posterior scalp contusion and laceration. No acute intracranial abnormality seen. 2. Scattered paranasal sinus disease. Severe within the left maxillary sinus. If symptomatic, conside r ENT referral.
[2024-04-08 19:18] LABS: Alcohol 185 mg/dL
[2024-04-08] MEDS: POTASSIUM CHLORIDE ER 20 MEQ TAB.ER PO STA (20:40)
[2024-04-08] MEDS: MAGNESIUM SULFATE-D5W PMX 1 GM in DEXTROSE/WATER 1 100ML.BAG IVPB ONE (20:40)
[2024-04-08] MEDS: SODIUM CHLORIDE 0.9% 1,000 ML IV ONE (20:41)
[2024-04-08 20:44] VITALS: BP 107/70; PULSE 63
== END 2024-04-08 20:43 | disposition other institution (70) ==
LOC: EC 17:46
DX: S00.03XA Contusion of scalp, initial encounter (principal); E83.42 Hypomagnesemia; E87.6 Hypokalemia; F10.129 Alcohol abuse with intoxication, unspecified; N17.9 Acute kidney failure, unspecified; F17.200 Nicotine dependence, unspecified, uncomplicated; W01.190A Fall on same level from slipping, tripping and stumbling with subsequent striking against furniture, initial encounter
CPT/HCPCS: 36415; 93005; 80053; 83735; 84484; 85025; 70450; 99284; G0480; 80320

== ENCOUNTER 2024-11-09 12:21 | Inpatient (IN) | payer MEDICARE ==
[2024-11-09 13:02] LABS: Basophils % (A) 0 %; Eosinophils # (A) 0.1 k/uL (0-0.7); Eosinophils % (A) 2 %; HCT 36.3 % (39.0-53.0); HGB 13.1 gm/dL (13.0-17.5); Lymphocytes # (A) 1.4 k/uL (1.0-4.8); Lymphocytes % (A) 20 %; MCH 36.2 pg (25.0-35.0); MCHC 36.2 g/dL (31.0-37.0); Mean Platelet Volume 7.8; Monocytes # (A) 0.4 k/uL (0-1.0); Monocytes % (A) 5 %; Neutrophils # (A) 5.2 k/uL (1.3-7.7); Neutrophils % (A) 71 %; Platelet Count 327 k/uL (150-450); RBC 3.62 m/uL (4.30-5.90); WBC 7.3 k/uL (3.8-10.6)
[2024-11-09 13:13] LABS: INR 1.1 (<1.2); Prothrombin Time 11.7 sec (10.0-12.5)
[2024-11-09 13:22] LABS: ALT 20 U/L (4-49); AST 48 U/L (17-59); African American GFR (CKD) 25 (>60 ml/min/1.73 sqM); Albumin 4.4 g/dL (3.5-5.0); Alkaline Phosphatase 239 U/L (38-126); Anion Gap 15 mmol/L; Blood Urea Nitrogen 73 mg/dL (9-20); Calcium 9.8 mg/dL (8.4-10.2); Carbon Dioxide 29 mmol/L (22-30); Chloride 80 mmol/L (98-107); Glucose 100 mg/dL (74-99); Non-African American GFR(CKD) 22 (>60 ml/min/1.73 sqM); Potassium 2.9 mmol/L (3.5-5.1); Sodium 124 mmol/L (137-145); Total Bilirubin 1.8 mg/dL (0.2-1.3)
--- NOTE | 2024-11-09 13:30 | ED ---
Weakness HPI - General Source: patient, RN notes reviewed Mode of arrival: EMS Limitations: no limitations <Bella Katz - Last Filed: 11/09/24 13:29> <Alex Stark - Last Filed: 11/09/24 17:54> - General Chief complaint: Weakness Stated complaint: weakness Time Seen by Provider: 11/09/24 13:29 - History of Present Illness Initial comments: Quick note: 63-year-old male presented to ER for evaluation of weakness. Family report patient has had numerous falls over the past couple of months. Patient does report head injury and has been seen here. No blood thinners. Patient has been feeling weak for approximately 1 year. Within the last month family have noticed he appears more jaundiced. Family looking for rehabilitation. (Bella Katz) This is a 63-year-old male who presents to the emergency department with a past medical history significant for drinking and smoking. Patient has been much weaker over the last few weeks and has been falling quite a bit. Patient has hi t his head multiple times and also complains of right shoulder pain. Family states they do not know if he has been drinking or not but they do not believe he is been drinking last couple days at least. Patient states he is so weak it is very difficult for him to even get up steps. Patient denies chest pain difficulty breathing shortness of breath. Patient denies any abdominal pain patient has nausea vomiting diarrhea. Family states they do not think he can go home because he has to negotiate steps and he lives alone. Patient states he barely eats or drinks because there is no one there to make his food. (Alex Stark) - Related Data Home Medications Medication Instructions Recorded Confirmed Bisoprolol-Hctz 10-6.25 mg [Ziac 1 tab PO DAILY 12/12/17 11/09/24 10-6.25 MG] Citalopram Hydrobromide [CeleXA] 20 mg PO DAILY 05/30/23 11/09/24 Potassium Chloride ER [K-Dur 20] 20 meq PO DAILY 05/30/23 11/09/24 Rosuvastatin Calcium 5 mg PO DAILY 05/30/23 11/09/24 metFORMIN HCL [Glucophage] 500 mg PO BID-W/MEALS 05/30/23 11/09/24 traZODone HCL [Desyrel] 50 mg PO HS 07/06/23 11/09/24 Fluticasone/Umeclidin/Vilanter 1 puff INHALATION RT-DAILY 04/08/24 11/09/24 [Trelegy Ellipta 100-62.5-25] Losartan [Cozaar] 50 mg PO DAILY 04/08/24 11/09/24 Bumetanide [BUMEX] 1 mg PO BID 11/09/24 11/09/24 Allergies Allergy/AdvReac Type Severity Reaction Status Date / Time No Known Allergies Allergy Verified 11/09/24 17:30 Review of Systems ROS Other: All systems not noted in ROS Statement are negative. <Bella Katz - Last Filed: 11/09/24 13:29> ROS Other: All systems not noted in ROS Statement are negative. <Alex Stark - Last Filed: 11/09/24 17:54> ROS Statement: Those systems with pertinent positive or pertinent negative responses have been documented in the HPI. Past Medical History Past Medical History: Heart Failure, COPD, Diabetes Mellitus, Eye Disorder, Hyperlipidemia, Hypertension Additional Past Medical History / Comment(s): Bilateral lower extremity cellulitis. History of Any Multi-Drug Resistant Organisms: None Reported Past Surgical History: Back Surgery Additional Past Surgical History / Comment(s): 3 back surgeries, left and right cataract Past Anesthesia/Blood Transfusion Reactions: Previous Problems w/ Anesthesia Additional Past Anesthesia/Blood Transfusion Reaction / Comment(s): diff. to wake up one time with back surgery Past Psychological History: Depression Smoking Status: Current every day smoker Past Alcohol Use History: Daily Past Drug Use History: Marijuana - Past Family History Mother Family Medical History: No Reported History <Bella Katz - Last Filed: 11/09/24 13:29> General Exam Limitations: no limitations <Bella Katz - Last Filed: 11/09/24 13:29> <Alex Stark - Last Filed: 11/09/24 17:54> - General Exam Comments Initial Comments: Visual Physical Exam Vital signs reviewed General: ill-appearing, nontoxic, no acute distress. Head: Normocephalic, atraumatic Eyes: PERRLA, EOMI ENT: Airway patent Chest: Nonlabored breathing Skin: No visual rash, jaundice Neuro: Alert and oriented 3 Musculoskeletal: No gross abnormalities (Bella Katz) GENERAL: Patient is well-developed and well-nourished. Patient is nontoxic and well- hydrated and is in no acute distress. ENT: Neck is soft and supple. No significant lymphadenopathy is noted. Oropharynx is clear. Moist mucous membranes. Neck has full range of motion without eliciting any pain. EYES: The sclera were anicteric and conjunctiva were pink and moist. Extraocular movements were intact and pupils were equal round and reactive to light. Eyelids were unremarkable. PULMONARY: Unlabored respirations. Good breath sounds bilaterally. No audible rales rhonchi or wheezing was noted. CARDIOVASCULAR: There is a regular rate and rhythm without any murmurs gallops or rubs. ABDOMEN: Soft and nontender with normal bowel sounds. SKIN: Skin is clear with no lesions or rashes and otherwise unremarkable. NEUROLOGIC: Patient is alert and oriented x3. Cranial nerves II through XII are grossly intact. Motor and sensory are also intact. Normal speech, volume and content. Symmetrical smile. MUSCULOSKELETAL: Normal extremities with adequate strength and full range of motion. Some anterior tenderness of the right shoulder and there is some bruising there as well. LYMPHATICS: No significant lymphadenopathy is noted PSYCHIATRIC: Normal psychiatric evaluation. (Alex Stark) Course Vital Signs 11/09/24 12:23 Temperature 97.4 F L Pulse Rate 56 L Respiratory 16 Rate Blood Pressure 116/76 O2 Sat by Pulse 98 Oximetry Medical Decision Making - Lab Data Result diagrams: 11/09/24 12:35 11/09/24 12:35 <Bella Katz - Last Filed: 11/09/24 13:29> - Lab Data Result diagrams: 11/09/24 12:35 11/09/24 12:35 <Alex Stark - Last Filed: 11/09/24 17:54> - Medical Decision Making I performed the quick note portion of this chart. Electronically signed by Bella Katz PA-C (Bella Katz) EKG is interpreted by myself. EKG shows sinus bradycardia 53 bpm QRS is 117 QT interval is 465 QTc is 449. Patient's EKG shows T wave inversions in leads V1 through V6 A 12-lead EKG was performed and interpreted by me as showing the following: Rate is default value, and rhythm is normal sinus. There are normal QRS complexes and normal R-wave progression. ST segments have elevation in default value, cons istent with an acute ST elevation myocardial infarction. NE segments appear normal. Was pt. sent in by a medical professional or institution ([facility]ford, MANAGER OF ADMINISTRATION, urgent care, hospital, or correction...) When possible be specific @ -No Did you speak to anyone other than the patient for history (EMS, parent, family, police, friend...)? What history was obtained from this source @ -No Did you review nursing and triage notes (agree or disagree)? Why? @ -I reviewed and agree with nursing and triage notes Were old charts reviewed (outside hosp., previous admission, EMS record, old EKG, old radiological studies, urgent care reports/EKG's, correction records)? Report findings @ -No old charts were reviewed Differential Diagnosis? @ -Differential weakness EKG interpreted by me (3pts min.). @ -As above X-rays interpreted by me (1pt min.). @ -Chest x-ray shows no acute abnormality shoulder x-ray shows a distal right clavicle fracture CT interpreted by me (1pt min.). @ -CT of the brain shows no acute abnormality CT of the C-spine shows no acute abnormality U/S interpreted by me (1pt. min.). @ -None done What testing was considered but not performed or refused? (CT, X-rays, U/S, labs)? Why? @ -None What meds were considered but not given or refused? Why? @ -None Did you discuss the management of the patient with other professionals (professionals i.e. IMT[facility]ford, MANAGER OF ADMINISTRATION, lab, RT, psych nurse, social studies department chair, county adviser, teacher, radiation officer, piano case maker)? Give summary @ -I spoke with [facility] hospitalist and they agreed to admit the patient admit the patient I wrote admitting Was smoking cessation discussed for >3mins.? @ -Yes Was critical care preformed (if so, how long)? @ -No Were there social determinants of health that impacted care today? How? (Homelessness, low income, unemployed, alcoholism, drug addiction, transportation, low edu. Level, literacy, decrease access to med. care, retirement, rehab)? @ -No Was there de-escalation of care discussed even if they declined (Discuss DNR or withdrawal of care, Hospice)? DNR status @ -No What co-morbidities impacted this encounter? (DM, HTN, Smoking, COPD, CAD, Cancer, CVA, ARF, Chemo, Hep., AIDS, mental health diagnosis, sleep apnea, morbid obesity)? @ -None Was patient admitted / discharged? Hospital course, mention meds given and route, prescriptions, significant lab abnormalities, going to OR and other pertinent info. @ -Patient's sodium is low and will be admitted for generalized weakness patient will get fluids to replace of his sodium. Patient's potassium is also low that will be replaced as well. Patient is creatinine is elevated as well. I will consult Ortho for the fractured clavicle. Undiagnosed new problem with uncertain prognosis? @ -No Drug Therapy requiring intensive monitoring for toxicity (Heparin, Nitro, Insulin, Cardizem)? @ -No Were any procedures done? @ -No Diagnosis/symptom? @ -Fracture clavicle Acute, or Chronic, or Acute on Chronic? @ -Acute Uncomplicated (without systemic symptoms) or Complicated (systemic symptoms)? @ -Uncomplicated Side effects of treatment? @ -No Exacerbation, Progression, or Severe Exacerbation? @ -No Poses a threat to life or bodily function? How? (Chest pain, [place], PR, pneumonia, PE, COPD, DKA, ARF, appy, cholecystitis, CVA, Diverticulitis, Homicidal, Suicid al, threat to staff... and all critical care pts) @ -No Diagnosis/symptom? @ -Hyponatremia Acute, or Chronic, or Acute on Chronic? @ -Acute Uncomplicated (without systemic symptoms) or Complicated (systemic symptoms)? @ -Complicated Side effects of treatment? @ -None Exacerbation, Progression, or Severe Exacerbation] @ -No Poses a threat to life or bodily function? @ -Yes this can lead to significant weakness and altered mental status Diagnosis/symptom? @ -Hypokalemia Acute, or Chronic, or Acute on Chronic? @ -Acute Uncomplicated (without systemic symptoms) or Complicated (systemic symptoms)? @ -Complicated Side effects of treatment? @ -None Exacerbation, Progression, or Severe Exacerbation] @ -No Poses a threat to life or bodily function? @ -Yes this can lead to arrhythmias and Diagnosis/symptom? @ -Renal insufficiency Acute, or Chronic, or Acute on Chronic? @ -Acute Uncomplicated (without systemic symptoms) or Complicated (systemic symptoms)? @ -Complicate Side effects of treatment? @ -None Exacerbation, Progression, or Severe Exacerbation] @ -No Poses a threat to life or bodily function? @ -Yes this can lead to significant electrolyte abnormalities. Diagnosis/symptom? @ -Alcohol abuse Acute, or Chronic, or Acute on Chronic? @ -Acute Uncomplicated (without systemic symptoms) or Complicated (systemic symptoms)? @ -Complicated Side effects of treatment? @ -None Exacerbation, Progression, or Severe Exacerbation] @ -No Poses a threat to life or bodily function? @ -Yes this can lead to alcohol withdrawal and (Alex Stark) - Lab Data Lab Results 11/09/24 11/09/24 11/09/24 Range/Units 12:35 12:35 12:35 WBC 7.3 (3.8-10.6) k/uL RBC 3.62 L (4.30-5.90) m/uL Hgb 13.1 (13.0-17.5) gm/dL Hct 36.3 L (39.0-53.0) % MCV 100.0 (80.0-100.0) fL MCH 36.2 H (25.0-35.0) pg MCHC 36.2 (31.0-37.0) g/dL RDW 13.0 (11.5-15.5) % Plt Count 327 (150-450) k/uL MPV 7.8 Neutrophils % 71 % Lymphocytes % 20 % Monocytes % 5 % Eosinophils % 2 % Basophils % 0 % Neutrophils # 5.2 (1.3-7.7) k/uL Lymphocytes # 1.4 (1.0-4.8) k/uL Monocytes # 0.4 (0-1.0) k/uL Eosinophils # 0.1 (0-0.7) k/uL Basophils # 0.0 (0-0.2) k/uL PT 11.7 (10.0-12.5) sec INR 1.1 (<1.2) APTT 21.4 L (22.0-30.0) sec Sodium 124 L (137-145) mmol/L Potassium 2.9 L (3.5-5.1) mmol/L Chloride 80 L (98-107) mmol/L Carbon Dioxide 29 (22-30) mmol/L Anion Gap 15 mmol/L BUN 73 H (9-20) mg/dL Creatinine 2.93 H (0.66-1.25) mg/dL Est GFR (CKD-EPI)AfAm 25 (>60 ml/min/1.73 sqM) Est GFR (CKD-EPI)NonAf 22 (>60 ml/min/1.73 sqM) Glucose 100 H (74-99) mg/dL Plasma Lactic Acid Danny (0.7-2.0) mmol/L Calcium 9.8 (8.4-10.2) mg/dL Total Bilirubin 1.8 H (0.2-1.3) mg/dL Conjugated Bilirubin (0.0-0.3) mg/dL Unconjugated Bilirubin (0.0-1.1) mg/dL Delta Bilirubin (0.0-0.2) mg/dL AST 48 (17-59) U/L ALT 20 (4-49) U/L Alkaline Phosphatase 239 H (38-126) U/L Ammonia (<30) umol/L Troponin I (0.000-0.034) ng/mL Total Protein 7.0 (6.3-8.2) g/dL Albumin 4.4 (3.5-5.0) g/dL Urine Color Urine Appearance (Clear) Urine pH (5.0-8.0) Ur Specific [place] (1.001-1.035) Urine Protein (Negative) Urine Glucose (UA) (Negative) Urine Ketones (Negative) Urine Blood (Negative) Urine Nitrite (Negative) Urine Bilirubin (Negative) Urine Urobilinogen (<2.0) mg/dL Ur Leukocyte Esterase (Negative) Urine RBC (0-5) /hpf Urine WBC (0-5) /hpf Serum Alcohol mg/dL Influenza Type A (PCR) (Not Detectd) Influenza Type B (PCR) (Not Detectd) RSV (PCR) (Not Detectd) SARS-CoV-2 (PCR) (Not Detectd) 11/09/24 11/09/24 11/09/24 Range/Units 12:35 12:35 14:01 WBC (3.8-10.6) k/uL RBC (4.30-5.90) m/uL Hgb (13.0-17.5) gm/dL Hct (39.0-53.0) % MCV (80.0-100.0) fL MCH (25.0-35.0) pg MCHC (31.0-37.0) g/dL RDW (11.5-15.5) % Plt Count (150-450) k/uL MPV Neutrophils % % Lymphocytes % % Monocytes % % Eosinophils % % Basophils % % Neutrophils # (1.3-7.7) k/uL Lymphocytes # (1.0-4.8) k/uL Monocytes # (0-1.0) k/uL Eosinophils # (0-0.7) k/uL Basophils # (0-0.2) k/uL PT (10.0-12.5) sec INR (<1.2) APTT (22.0-30.0) sec Sodium (137-145) mmol/L Potassium (3.5-5.1) mmol/L Chloride (98-107) mmol/L Carbon Dioxide (22-30) mmol/L Anion Gap mmol/L BUN (9-20) mg/dL Creatinine (0.66-1.25) mg/dL Est GFR (CKD-EPI)AfAm (>60 ml/min/1.73 sqM) Est GFR (CKD-EPI)NonAf (>60 ml/min/1.73 sqM) Glucose (74-99) mg/dL Plasma Lactic Acid Danny 2.0 (0.7-2.0) mmol/L Calcium (8.4-10.2) mg/dL Total Bilirubin 1.8 H (0.2-1.3) mg/dL Conjugated Bilirubin 0.0 (0.0-0.3) mg/dL Unconjugated Bilirubin 0.9 (0.0-1.1) mg/dL Delta Bilirubin 0.9 H (0.0-0.2) mg/dL AST (17-59) U/L ALT (4-49) U/L Alkaline Phosphatase (38-126) U/L Ammonia (<30) umol/L Troponin I <0.012 (0.000-0.034) ng/mL Total Protein (6.3-8.2) g/dL Albumin (3.5-5.0) g/dL Urine Color Urine Appearance (Clear) Urine pH (5.0-8.0) Ur Specific [place] (1.001-1.035) Urine Protein (Negative) Urine Glucose (UA) (Negative) Urine Ketones (Negative) Urine Blood (Negative) Urine Nitrite (Negative) Urine Bilirubin (Negative) Urine Urobilinogen (<2.0) mg/dL Ur Leukocyte Esterase (Negative) Urine RBC (0-5) /hpf Urine WBC (0-5) /hpf Serum Alcohol <10 mg/dL Influenza Type A (PCR) (Not Detectd) Influenza Type B (PCR) (Not Detectd) RSV (PCR) (Not Detectd) SARS-CoV-2 (PCR) (Not Detectd) 11/09/24 11/09/24 11/09/24 Range/Units 15:15 15:15 17:18 WBC (3.8-10.6) k/uL RBC (4.30-5.90) m/uL Hgb (13.0-17.5) gm/dL Hct (39.0-53.0) % MCV (80.0-100.0) fL MCH (25.0-35.0) pg MCHC (31.0-37.0) g/dL RDW (11.5-15.5) % Plt Count (150-450) k/uL MPV Neutrophils % % Lymphocytes % % Monocytes % % Eosinophils % % Basophils % % Neutrophils # (1.3-7.7) k/uL Lymphocytes # (1.0-4.8) k/uL Monocytes # (0-1.0) k/uL Eosinophils # (0-0.7) k/uL Basophils # (0-0.2) k/uL PT (10.0-12.5) sec INR (<1.2) APTT (22.0-30.0) sec Sodium (137-145) mmol/L Potassium (3.5-5.1) mmol/L Chloride (98-107) mmol/L Carbon Dioxide (22-30) mmol/L Anion Gap mmol/L BUN (9-20) mg/dL Creatinine (0.66-1.25) mg/dL Est GFR (CKD-EPI)AfAm (>60 ml/min/1.73 sqM) Est GFR (CKD-EPI)NonAf (>60 ml/min/1.73 sqM) Glucose (74-99) mg/dL Plasma Lactic Acid Danny (0.7-2.0) mmol/L Calcium (8.4-10.2) mg/dL Total Bilirubin (0.2-1.3) mg/dL Conjugated Bilirubin (0.0-0.3) mg/dL Unconjugated Bilirubin (0.0-1.1) mg/dL Delta Bilirubin (0.0-0.2) mg/dL AST (17-59) U/L ALT (4-49) U/L Alkaline Phosphatase (38-126) U/L Ammonia <9 (<30) umol/L Troponin I (0.000-0.034) ng/mL Total Protein (6.3-8.2) g/dL Albumin (3.5-5.0) g/dL Urine Color Yellow Urine Appearance Clear (Clear) Urine pH 7.5 (5.0-8.0) Ur Specific [place] 1.009 (1.001-1.035) Urine Protein 1+ H (Negative) Urine Glucose (UA) Negative (Negative) Urine Ketones Negative (Negative) Urine Blood Negative (Negative) Urine Nitrite Negative (Negative) Urine Bilirubin Negative (Negative) Urine Urobilinogen 6.0 (<2.0) mg/dL Ur Leukocyte Esterase Negative (Negative) Urine RBC 1 (0-5) /hpf Urine WBC 1 (0-5) /hpf Serum Alcohol mg/dL Influenza Type A (PCR) Not Detected (Not Detectd) Influenza Type B (PCR) Not Detected (Not Detectd) RSV (PCR) Not Detected (Not Detectd) SARS-CoV-2 (PCR) Not Detected (Not Detectd) Disposition <Bella Katz - Last Filed: 11/09/24 13:29> Time of Disposition: 17:19 <Alex Stark - Last Filed: 11/09/24 17:54> Clinical Impression: Hypokalemia, Hyponatremia, Clavicle fracture, Renal insufficiency, Alcohol abuse Disposition: ADMITTED IP TO THIS HOSP Referrals: Christiano Alaniz MD [Primary Care Provider] - 1-2 days
[2024-11-09 13:37] LABS: Partial Thromboplastin Time 21.4 sec (22.0-30.0)
--- NOTE | 2024-11-09 13:40 | XR ---
EXAMINATION TYPE: XR chest 2V DATE OF EXAM: 11/09/2024 1:21 PM COMPARISON: 07/08/2023 CLINICAL INDICATION: Male, 63 years old with history of Weakness, , TECHNIQUE: AP and lateral views FINDINGS: Heart mildly enlarged. Normal variant azygos fissure. Hyperinflation and mild interstitial prominence . Additional hazy lung densities relating to body habitus. There is some patchy peripheral left basil ar opacity noted. No pleural effusion on the lateral view. IMPRESSION: Mild cardiomegaly and COPD. There is some focal patchy atelectasis versus infiltrate at the periphery of the left base. [facility], , 11/09/2024 1:38 PM
[2024-11-09 14:32] LABS: Alcohol <10 mg/dL; Bilirubin, Delta 0.9 mg/dL (0.0-0.2); Bilirubin,Unconjugated 0.9 mg/dL (0.0-1.1); Total Bilirubin 1.8 mg/dL (0.2-1.3)
--- NOTE | 2024-11-09 16:20 | CT ---
EXAMINATION TYPE: CT brain elli wo con DATE OF EXAM: 11/09/2024 COMPARISON: 04/08/2024 CLINICAL INDICATION: Male, 63 years old with history of Trauma; PHH, Pt complains of acute on chronic generalized weakness that has worsened over the last few weeks. TECHNIQUE: CT scan of the head and cervical spine are performed without contrast. CT DLP: 1441.[address] CTDI: mGy Automated exposure control for dose reduction was used. Findings: Head CT: Ventricles, basal cisterns and sulci over convexities are mildly enlarged consistent with age-appropr iate atrophy. There is no mass effect or shift of midline structures. No abnormal density is seen thr oughout the brain parenchyma and there is no acute intra or extra-axial hemorrhage. Posterior fossa including the brainstem, fourth ventricle and cerebellar pontine angles are grossly n ormal. The intraorbital contents appear normal and symmetric. There is stable near complete opacification of the left maxillary sinus consistent with marked left maxillary sinusitis. CT cervical spine: Craniovertebral junction relationships and prevertebral soft tissues are normal. There is mild to moderate disc space narrowing and spondylosis at the C4-5, C5-6 and C6-7 levels alon cating moderate degenerative disc disease. The facet joints are intact. There is mild degeneration an d uncovertebral joints in the mid lower cervical spine. There is mild to moderate bony neural foraminal encroachment at C4-5 on the right. There is no signif icant bony encroachment of the cervical canal. The disc spaces are well-maintained in height and ther e is no significant degenerative disc disease. The bony cervical canal is widely patent and there is no bony encroachment of the neural foramina. The paraspinal soft tissues unremarkable. IMPRESSION: 1. Head CT: No acute bleed or mass effect. Mild age-appropriate atrophy 2. CT cervical spine: No acute trauma. Mild to moderate degenerative disc disease at the C4-5, C5-6 a nd C6-7 levels. 3. No change in near complete opacification of the left maxillary sinus indicating marked sinusitis. [facility], , 11/09/2024 4:16 PM
--- NOTE | 2024-11-09 16:32 | XR ---
EXAMINATION TYPE: XR chest 1V portable DATE OF EXAM: 11/09/2024 COMPARISON: Chest x-ray earlier today CLINICAL INDICATION: Male, 63 years old with history of Short of breath; TECHNIQUE: Single frontal view of the chest is obtained. FINDINGS: There is diminished inspiration with new central vascular congestion. Cardiomegaly is rede monstrated. More prominent left basilar consolidation/atelectasis. The osseous structures are intact . An azygos lobe/fissure is redemonstrated. IMPRESSION: As above. Advise repeat study with improved inspiration [facility], , 11/09/2024 4:30 PM
--- NOTE | 2024-11-09 16:33 | XR ---
EXAMINATION TYPE: XR shoulder complete RT DATE OF EXAM: 11/09/2024 4:26 PM COMPARISON: None. CLINICAL INDICATION: Male, 63 years old with history of fall, pain TECHNIQUE: Three views of the right shoulder are obtained. FINDINGS: There is acute comminuted displaced fracture through distal aspect of the right clavicle e xtending into the acromioclavicular joint. Glenohumeral joint is maintained. Visualized ribs are inta ct. IMPRESSION: As above. [facility], , 11/09/2024 4:31 PM
[2024-11-09] MEDS: SODIUM CHLORIDE 0.9% 500 ML 500 ML IV ONE (16:59)
[2024-11-09] MEDS: KETOROLAC 15 MG/ML 1 ML VIAL IVP STA (17:00)
[2024-11-09] MEDS: HYDROmorphone 0.5 MG/0.5 ML SYRINGE IVP STA (17:01)
[2024-11-09 17:29] LABS: Appearance,Urine Clear (Clear); Bilirubin,Urine Negative (Negative); Blood,Urine Negative (Negative); Color,Urine Yellow; Glucose,Urine (UA) Negative (Negative); Ketones,Urine Negative (Negative); Leukocyte Esterase,Urine Negative (Negative); Nitrite,Urine Negative (Negative); PH, Urine 7.5 (5.0-8.0); Protein,Urine 1+ (Negative); RBC,Urine 1 /hpf (0-5); Specific Gravity,Urine 1.009 (1.001-1.035); WBC,Urine 1 /hpf (0-5)
[2024-11-09] MEDS: POTASSIUM CHLORIDE ER 20 MEQ TAB.ER PO STA (18:05)
[2024-11-09] MEDS: SODIUM CHLORIDE 0.9% 1,000 ML IV ONE (18:06)
[2024-11-09] MEDS: POTASSIUM CHLORIDE 20 MEQ in WATER FOR INJECTION 1 100ML.BAG IVPB STA (18:10)
[2024-11-09 21:09] LABS: Alcohol <10 mg/dL; Magnesium 1.4 mg/dL (1.6-2.3)
[2024-11-09] MEDS: MAGNESIUM SULFATE-D5W PMX 1 GM in DEXTROSE/WATER 1 100ML.BAG IVPB SCH (21:36)
[2024-11-09 21:44] LABS: Glucose,Whole Blood 127 mg/dL (70-110)
[2024-11-09] MEDS ORDERED: CHOLESTYRAMINE (WITH SUGAR) 4 GM PACKET PO PRN (21:50)
[2024-11-09 22:55] LABS: Basophils % (A) 0 %; Eosinophils # (A) 0.2 k/uL (0-0.7); Eosinophils % (A) 3 %; HCT 30.6 % (39.0-53.0); HGB 10.7 gm/dL (13.0-17.5); Lymphocytes # (A) 1.7 k/uL (1.0-4.8); Lymphocytes % (A) 25 %; MCH 35.9 pg (25.0-35.0); MCHC 35.1 g/dL (31.0-37.0); MCV 102.3 fL (80.0-100.0); Macrocytosis Slight; Mean Platelet Volume 7.7; Monocytes # (A) 0.4 k/uL (0-1.0); Monocytes % (A) 6 %; Neutrophils # (A) 4.3 k/uL (1.3-7.7); Neutrophils % (A) 64 %; Platelet Count 257 k/uL (150-450); RBC 2.99 m/uL (4.30-5.90); RDW 12.6 % (11.5-15.5); WBC 6.7 k/uL (3.8-10.6)
[2024-11-09 23:10] LABS: ALT 15 U/L (4-49); AST 35 U/L (17-59); African American GFR (CKD) 33 (>60 ml/min/1.73 sqM); Albumin/Globulin Ratio 1.3; Alkaline Phosphatase 179 U/L (38-126); Anion Gap 6 mmol/L; Blood Urea Nitrogen 66 mg/dL (9-20); Calcium 8.1 mg/dL (8.4-10.2); Carbon Dioxide 26 mmol/L (22-30); Chloride 91 mmol/L (98-107); Globulin 2.3 g/dL; Glucose 114 mg/dL (74-99); Non-African American GFR(CKD) 29 (>60 ml/min/1.73 sqM); Potassium 3.2 mmol/L (3.5-5.1); Sodium 123 mmol/L (137-145); Total Bilirubin 1.1 mg/dL (0.2-1.3); Total Protein 5.3 g/dL (6.3-8.2)
[2024-11-09 23:12] LABS: Lactic Acid, Venous 0.9 mmol/L (0.7-2.0)
[2024-11-10 06:25] LABS: Glucose,Whole Blood 130 mg/dL (70-110)
[2024-11-10] MEDS ORDERED: LORazepam 1 MG TAB PO PRN ×2 (07:21)
[2024-11-10] MEDS ORDERED: LORazepam 0.5 MG TAB PO PRN (07:21)
[2024-11-10 09:39] LABS: ALT 18 U/L (4-49); AST 45 U/L (17-59); African American GFR (CKD) 39 (>60 ml/min/1.73 sqM); Albumin 3.6 g/dL (3.5-5.0); Albumin/Globulin Ratio 1.4; Alkaline Phosphatase 227 U/L (38-126); Anion Gap 9 mmol/L; Blood Urea Nitrogen 59 mg/dL (9-20); Calcium 8.9 mg/dL (8.4-10.2); Carbon Dioxide 28 mmol/L (22-30); Chloride 92 mmol/L (98-107); Globulin 2.5 g/dL; Glucose 90 mg/dL (74-99); Non-African American GFR(CKD) 34 (>60 ml/min/1.73 sqM); Potassium 3.9 mmol/L (3.5-5.1); Sodium 129 mmol/L (137-145); Total Bilirubin 1.2 mg/dL (0.2-1.3); Total Protein 6.1 g/dL (6.3-8.2)
[2024-11-10 11:48] LABS: Glucose,Whole Blood 112 mg/dL (70-110)
--- NOTE | 2024-11-10 15:44 | P.CNOR ---
History of Present Illness - [facility] Consult date: 11/10/24 Consult reason: fracture (Right clavicle fracture.) History of present illness: Andres is a 63-year-old male who is admitted to [facility] on 11/09/2024 with complaint of global weakness. He has had multiple falls recently. He feels that he injured his shoulder during one of the falls. He is unsure as to how long his shoulder has been sore. On exam and x-ray he was found to have a right distal clavicle fracture. We are consulted for orthopedic evaluation. Past Medical History Past Medical History: Heart Failure, COPD, Diabetes Mellitus, Eye Disorder, Hyperlipidemia, Hypertension Additional Past Medical History / Comment(s): Bilateral lower extremity cellulitis. alcoholism History of Any Multi-Drug Resistant Organisms: None Reported Past Surgical History: Back Surgery Additional Past Surgical History / Comment(s): 3 back surgeries, left and right cataract Past Anesthesia/Blood Transfusion Reactions: Previous Problems w/ Anesthesia Additional Past Anesthesia/Blood Transfusion Reaction / Comm: diff. to wake up one time with back surgery Past Psychological History: Depression Smoking Status: Current every day smoker Past Alcohol Use History: Heavy Additional Past Alcohol Use History / Comment(s): has smoked 1ppd for about 20 years; quit for 4 weeks in Nov. but started again Past Drug Use History: Marijuana - Past Family History Mother Family Medical History: No Reported History Medications and Allergies Home Medications Medication Instructions Recorded Confirmed Type Bisoprolol-Hctz 10-6.25 mg [Ziac 1 tab PO DAILY 12/12/17 11/09/24 History 10-6.25 MG] Citalopram Hydrobromide [CeleXA] 20 mg PO DAILY 05/30/23 11/09/24 History Potassium Chloride ER [K-Dur 20] 20 meq PO DAILY 05/30/23 11/09/24 History Rosuvastatin Calcium 5 mg PO DAILY 05/30/23 11/09/24 History metFORMIN HCL [Glucophage] 500 mg PO BID-W/MEALS 05/30/23 11/09/24 History traZODone HCL [Desyrel] 50 mg PO HS 07/06/23 11/09/24 History Fluticasone/Umeclidin/Vilanter 1 puff INHALATION RT-DAILY 04/08/24 11/09/24 History [Trelegy Ellipta 100-62.5-25] Losartan [Cozaar] 50 mg PO DAILY 04/08/24 11/09/24 History Bumetanide [BUMEX] 1 mg PO BID 11/09/24 11/09/24 History Allergies Allergy/AdvReac Type Severity Reaction Status Date / Time No Known Allergies Allergy Verified 11/09/24 17:30 Physical Examination This is a pleasant 63-year-old male in no acute distress. He is quite sleepy on exam today. He continues to fall asleep during our conversation. Exam of the upper extremities reveals mild soft tissue swelling about the clavicle on the right. He has difficulty with range of motion of the shoulder on the right. He has full elbow, wrist and finger motion bilaterally. There is tenderness with palpation about the distal clavicle. Neurovascular status to the upper extremity is intact. Results X-rays of the right shoulder reveal a distal clavicle fracture with mild displacement and slight comminution. No other fractures noted on x-ray. - Labs Labs: Abnormal Lab Results - Last 24 Hours (Table) 11/09/24 11/09/24 11/09/24 Range/Units 15:15 17:18 21:42 RBC (4.30-5.90) m/uL Hgb (13.0-17.5) gm/dL Hct (39.0-53.0) % MCV (80.0-100.0) fL MCH (25.0-35.0) pg Sodium (137-145) mmol/L Potassium (3.5-5.1) mmol/L Chloride (98-107) mmol/L BUN (9-20) mg/dL Creatinine (0.66-1.25) mg/dL Glucose (74-99) mg/dL POC Glucose (mg/dL) 127 H (70-110) mg/dL Calcium (8.4-10.2) mg/dL Magnesium 1.4 L (1.6-2.3) mg/dL Alkaline Phosphatase (38-126) U/L Total Protein (6.3-8.2) g/dL Albumin (3.5-5.0) g/dL Urine Protein 1+ H (Negative) 11/09/24 11/09/24 11/10/24 Range/Units 22:42 22:42 06:23 RBC 2.99 L (4.30-5.90) m/uL Hgb 10.7 L (13.0-17.5) gm/dL Hct 30.6 L (39.0-53.0) % MCV 102.3 H (80.0-100.0) fL MCH 35.9 H (25.0-35.0) pg Sodium 123 L (137-145) mmol/L Potassium 3.2 L (3.5-5.1) mmol/L Chloride 91 L (98-107) mmol/L BUN 66 H (9-20) mg/dL Creatinine 2.32 H (0.66-1.25) mg/dL Glucose 114 H (74-99) mg/dL POC Glucose (mg/dL) 130 H (70-110) mg/dL Calcium 8.1 L (8.4-10.2) mg/dL Magnesium (1.6-2.3) mg/dL Alkaline Phosphatase 179 H (38-126) U/L Total Protein 5.3 L (6.3-8.2) g/dL Albumin 3.0 L (3.5-5.0) g/dL Urine Protein (Negative) 11/10/24 11/10/24 Range/Units 07:52 11:46 RBC (4.30-5.90) m/uL Hgb (13.0-17.5) gm/dL Hct (39.0-53.0) % MCV (80.0-100.0) fL MCH (25.0-35.0) pg Sodium 129 L (137-145) mmol/L Potassium (3.5-5.1) mmol/L Chloride 92 L (98-107) mmol/L BUN 59 H (9-20) mg/dL Creatinine 2.03 H (0.66-1.25) mg/dL Glucose (74-99) mg/dL POC Glucose (mg/dL) 112 H (70-110) mg/dL Calcium (8.4-10.2) mg/dL Magnesium (1.6-2.3) mg/dL Alkaline Phosphatase 227 H (38-126) U/L Total Protein 6.1 L (6.3-8.2) g/dL Albumin (3.5-5.0) g/dL Urine Protein (Negative) H & H 11/09/24 11/09/24 Range/Units 12:35 22:42 Hgb 13.1 10.7 L (13.0-17.5) gm/dL Hct 36.3 L 30.6 L (39.0-53.0) % Coagulation 11/09/24 Range/Units 12:35 INR 1.1 (<1.2) Result Diagrams: 11/09/24 22:42 11/10/24 07:52 Assessment and Plan (1) Alcohol abuse Current Visit: Yes Status: Acute Code(s): F10.10 - ALCOHOL ABUSE, UNCOMPLICATED SNOMED Code(s): 90579116 (2) Clavicle fracture Current Visit: Yes Status: Acute Code(s): S42.009A - FRACTURE OF UNSP PART OF UNSP CLAVICLE, INIT FOR CLOS FX SNOMED Code(s): 45933790 Plan: Clinical and x-ray findings are discussed with the patient. At this time it is recommended he continue with closed treatment, using a sling for comfort and immobilization. He will follow-up in 10 to 14 days for repeat x-rays and evaluation with Dr. Milton Dumont.
[2024-11-10 16:44] LABS: Glucose,Whole Blood 124 mg/dL (70-110)
[2024-11-10] MEDS ORDERED: DEXTROSE 50% SYRINGE 50 ML IVP PRN ×2 (17:30)
--- NOTE | 2024-11-10 17:42 | P.HPIM ---
History of Present Illness H&P Date: 11/10/24 Chief Complaint: Weakness Patient is a 63 year old male with past medical history of congestive heart failure, COPD, diabetes mellitus, hyperlipidemia, hypertension presented to the ED after a fall and with generalized weakness. Patient reports sustaining a fall five days ago. He endorses pain on his right shoulder from the fall. He denies hitting his head or losing consciousness. He mentions having multiple falls in the past and he did hit his head previous times. Associated with that he experiences generalized weakness and poor oral intake for over a year now. He mentions that he had been trying to lose weight which is why he decreased his oral intake but hasn't seen a lot of change in his weight. He also admits to drinking a pint a day of alcohol and is a current everyday smoker. He states that he quit drinking 2 months ago but according to ED documentation the family reports that he has been drinking in the past couple days. Denies fever, chills, shortness of breath, cough, chest pain, palpitations, abdominal pain, nausea, vomiting, hematuria, dysuria, hematochezia, melena, headache, slurred speech, numbness, tingling, dizziness, lightheadedness. ED documentation reviewed. In the ED patient was treated with hydromorphone 0.5 mg, ketorolac 40 mg, magnesium sulfate, potassium chloride, 0.9 normal saline. Vitals on admission T 97.4 F, NH 56 bpm, RR 16, BP 116/76, oxygen saturation 98% on room air EKG independently interpreted as sinus bradycardia, T wave inversion in leads V1-6 rate 53 bpm, QTc 449 ms Chest x-ray shows mild cardiomegaly and COPD, focal patchy atelectasis versus infiltrate at the periphery of the left base Shoulder x-ray shows acute comminuted displaced fracture through the distal aspect of the right clavicle extending into the acromioclavicular joint, glenohumeral joint is maintained Head and cervical spine CT shows no acute bleed or mass effect/no acute trauma/no change near complete opacification of the left maxillary sinus indicating marked sinusitis Labs on admission show hemoglobin 13.1, APTT 21.4, sodium 124, potassium 2.9, magnesium 1.4, bicarb 29, anion gap 15, BUN 73, creatinine 2.90, total bilirubin 1.8, ALP 239 Troponin I <0.012 UA shows 1+ protein Serum alcohol less than 10 Respiratory panel is negative Review of systems: Pertinent positives and negatives as discussed in HPI, a complete review of systems was performed and all other systems are negative. Social history: Tobacco: Current everyday smoker Alcohol: Heavy alcohol abuse, a pint a day Recreational drugs: Denies use Travel: No recent travel history Sick contacts: None Physical examination: Vital signs reviewed General: nontoxic, no distress, appears at stated age Derm: warm, dry, intact Head: atraumatic, normocephalic, symmetric Eyes: EOMI, anicteric sclera Mouth: no lip lesion, mucus membranes moist Cardiovascular: S1 S2 reg, no murmur Lungs: CTA bilateral, no rhonchi, no rales, no accessory muscle use Abdominal: soft, non-tender to palpation Extremities: Venous stasis dermatitis b/l LE Neuro: Alert, Oriented, Gross neurological examination did not reveal any focal deficits. Psych: well appearing, appropriate affect Assessment/Plan: Patient is a 63 year old male with past medical history of congestive heart failure, COPD, diabetes mellitus, hyperlipidemia, hypertension presented to the ED after a fall and with generalized weakness. He has been admitted for LUIS ANTONIO and generalized weakness due to poor oral intake and electrolyte abnormalities. Active: #. Acute comminuted displaced clavicle fracture Shoulder x-ray shows acute comminuted displaced fracture through the distal aspect of the right clavicle extending into the acromioclavicular joint, glenohumeral joint is maintained Closed treatment, with sling for comfort and immobilization Orthopedic surgery consulted, recommend follow up in 10-14 days for repeat X- rays and evaluation with Dr. Milton Dumont #. LUIS ANTONIO #. Hyponatremia, Beer potomania #. Generalized weakness, secondary to poor oral intake and electrolyte abnormalities Creatinine 2.03 Continue 0.9 normal saline at 130 ml/hr Monitor BMP Nephrology consulted #. Hypomagnesemia Magnesium replacement in the ED Monitor BMP #. Hypokalemia, resolved #. Alcohol withdrawal Lorazepam 1 mg p.o. every 4 hours as needed (CIWA 6-7), lorazepam 0.5 mg p.o. every 4 hours as needed (CIWA 4-5), lorazepam 2 mg p.o. every 2 hours as needed (CIWA 10 or greater) Chronic: #. Non insulin dependent Diabetes mellitus #. Anxiety #. Hyperlipidemia Insulin sliding scale and ACHS blood glucose monitoring Continue sildenafil. Milligram p.o. daily, trazodone 50 mg p.o. at bedtime, rosuvastatin 5 mg p.o. daily F: 0.9 normal saline at 130 mL/h E: Replete sodium and magnesium N: Regular diet DVT prophylaxis: Lovenox 40 mg SQ daily GI prophylaxis: Pantoprazole 40 mg PO daily The patient is admitted with an anticipated more than 2 midnight stay for evaluation of generalized weakness CODE STATUS: FULL CODE Discussed with: Patient Anticipated discharge place: Home Past Medical History Past Medical History: Heart Failure, COPD, Diabetes Mellitus, Eye Disorder, Hyperlipidemia, Hypertension Additional Past Medical History / Comment(s): Bilateral lower extremity cellulitis. alcoholism History of Any Multi-Drug Resistant Organisms: None Reported Past Surgical History: Back Surgery Additional Past Surgical History / Comment(s): 3 back surgeries, left and right cataract Past Anesthesia/Blood Transfusion Reactions: Previous Problems w/ Anesthesia Additional Past Anesthesia/Blood Transfusion Reaction / Comment(s): diff. to wake up one time with back surgery Past Psychological History: Depression Smoking Status: Current every day smoker Past Alcohol Use History: Heavy Additional Past Alcohol Use History / Comment(s): has smoked 1ppd for about 20 years; quit for 4 weeks in Nov. but started again Past Drug Use History: Marijuana - Past Family History Mother Family Medical History: No Reported History Medications and Allergies Home Medications Medication Instructions Recorded Confirmed Type Bisoprolol-Hctz 10-6.25 mg [Ziac 1 tab PO DAILY 12/12/17 11/09/24 History 10-6.25 MG] Citalopram Hydrobromide [CeleXA] 20 mg PO DAILY 05/30/23 11/09/24 History Potassium Chloride ER [K-Dur 20] 20 meq PO DAILY 05/30/23 11/09/24 History Rosuvastatin Calcium 5 mg PO DAILY 05/30/23 11/09/24 History metFORMIN HCL [Glucophage] 500 mg PO BID-W/MEALS 05/30/23 11/09/24 History traZODone HCL [Desyrel] 50 mg PO HS 07/06/23 11/09/24 History Fluticasone/Umeclidin/Vilanter 1 puff INHALATION RT-DAILY 04/08/24 11/09/24 History [Trelegy Ellipta 100-62.5-25] Losartan [Cozaar] 50 mg PO DAILY 04/08/24 11/09/24 History Bumetanide [BUMEX] 1 mg PO BID 11/09/24 11/09/24 History Allergies Allergy/AdvReac Type Severity Reaction Status Date / Time No Known Allergies Allergy Verified 11/09/24 17:30 Physical Exam Vitals: Vital Signs Temp Pulse Pulse Resp BP BP Pulse Ox 11/10/24 08:45 57 L 11/10/24 07:34 97.4 F L 57 L 16 133/75 99 11/10/24 03:18 98.2 F 62 18 127/86 99 11/10/24 02:27 65 20 101/68 99 11/10/24 00:00 65 20 115/75 99 11/09/24 23:46 105/69 11/09/24 23:09 83 20 92/62 96 11/09/24 22:04 56 L 18 95/56 95 11/09/24 21:45 63 18 87/60 98 11/09/24 20:36 98.6 F 57 L 20 76/61 93 L 11/09/24 12:23 97.4 F L 56 L 16 116/76 98 Intake and Output 11/09/24 11/10/24 11/10/24 22:59 06:59 14:59 Intake Total 360 Output Total 400 Balance -400 360 Intake: Oral 360 Output: Urine 400 Other: Voiding Method Urinal # Voids 1 Weight 97.522 kg Results CBC & Chem 7: 11/09/24 22:42 11/10/24 07:52 Labs: Abnormal Lab Results - Last 24 Hours (Table) 11/09/24 11/09/24 11/09/24 Range/Units 12:35 12:35 12:35 RBC 3.62 L (4.30-5.90) m/uL Hgb (13.0-17.5) gm/dL Hct 36.3 L (39.0-53.0) % MCV (80.0-100.0) fL MCH 36.2 H (25.0-35.0) pg APTT 21.4 L (22.0-30.0) sec Sodium 124 L (137-145) mmol/L Potassium 2.9 L (3.5-5.1) mmol/L Chloride 80 L (98-107) mmol/L BUN 73 H (9-20) mg/dL Creatinine 2.93 H (0.66-1.25) mg/dL Glucose 100 H (74-99) mg/dL POC Glucose (mg/dL) (70-110) mg/dL Calcium (8.4-10.2) mg/dL Magnesium (1.6-2.3) mg/dL Total Bilirubin 1.8 H (0.2-1.3) mg/dL Delta Bilirubin (0.0-0.2) mg/dL Alkaline Phosphatase 239 H (38-126) U/L Total Protein (6.3-8.2) g/dL Albumin (3.5-5.0) g/dL Urine Protein (Negative) 11/09/24 11/09/24 11/09/24 Range/Units 14:01 15:15 17:18 RBC (4.30-5.90) m/uL Hgb (13.0-17.5) gm/dL Hct (39.0-53.0) % MCV (80.0-100.0) fL MCH (25.0-35.0) pg APTT (22.0-30.0) sec Sodium (137-145) mmol/L Potassium (3.5-5.1) mmol/L Chloride (98-107) mmol/L BUN (9-20) mg/dL Creatinine (0.66-1.25) mg/dL Glucose (74-99) mg/dL POC Glucose (mg/dL) (70-110) mg/dL Calcium (8.4-10.2) mg/dL Magnesium 1.4 L (1.6-2.3) mg/dL Total Bilirubin 1.8 H (0.2-1.3) mg/dL Delta Bilirubin 0.9 H (0.0-0.2) mg/dL Alkaline Phosphatase (38-126) U/L Total Protein (6.3-8.2) g/dL Albumin (3.5-5.0) g/dL Urine Protein 1+ H (Negative) 11/09/24 11/09/24 11/09/24 Range/Units 21:42 22:42 22:42 RBC 2.99 L (4.30-5.90) m/uL Hgb 10.7 L (13.0-17.5) gm/dL Hct 30.6 L (39.0-53.0) % MCV 102.3 H (80.0-100.0) fL MCH 35.9 H (25.0-35.0) pg APTT (22.0-30.0) sec Sodium 123 L (137-145) mmol/L Potassium 3.2 L (3.5-5.1) mmol/L Chloride 91 L (98-107) mmol/L BUN 66 H (9-20) mg/dL Creatinine 2.32 H (0.66-1.25) mg/dL Glucose 114 H (74-99) mg/dL POC Glucose (mg/dL) 127 H (70-110) mg/dL Calcium 8.1 L (8.4-10.2) mg/dL Magnesium (1.6-2.3) mg/dL Total Bilirubin (0.2-1.3) mg/dL Delta Bilirubin (0.0-0.2) mg/dL Alkaline Phosphatase 179 H (38-126) U/L Total Protein 5.3 L (6.3-8.2) g/dL Albumin 3.0 L (3.5-5.0) g/dL Urine Protein (Negative) 11/10/24 11/10/24 Range/Units 06:23 07:52 RBC (4.30-5.90) m/uL Hgb (13.0-17.5) gm/dL Hct (39.0-53.0) % MCV (80.0-100.0) fL MCH (25.0-35.0) pg APTT (22.0-30.0) sec Sodium 129 L (137-145) mmol/L Potassium (3.5-5.1) mmol/L Chloride 92 L (98-107) mmol/L BUN 59 H (9-20) mg/dL Creatinine 2.03 H (0.66-1.25) mg/dL Glucose (74-99) mg/dL POC Glucose (mg/dL) 130 H (70-110) mg/dL Calcium (8.4-10.2) mg/dL Magnesium (1.6-2.3) mg/dL Total Bilirubin (0.2-1.3) mg/dL Delta Bilirubin (0.0-0.2) mg/dL Alkaline Phosphatase 227 H (38-126) U/L Total Protein 6.1 L (6.3-8.2) g/dL Albumin (3.5-5.0) g/dL Urine Protein (Negative) Thrombosis Risk Factor Assmnt - Choose All That Apply Any of the Below Risk Factors Present?: Yes Each Factor Represents 1 point: Abnormal pulmonary function (COPD) Other Risk Factors: Yes Each Risk Factor Represents 2 Points: Age 61-74 years Thrombosis Risk Factor Assessment Total Risk Factor Score: 3 Thrombosis Risk Factor Assessment Level: Moderate Risk
[2024-11-10] MEDS: SODIUM CHLORIDE 0.9% 1,000 ML IV SCH (18:22)
[2024-11-10] MEDS: INSULIN ASPART (NovoLOG) 100 UNIT/ML VIAL SQ SCH (18:24)
[2024-11-10] MEDS: MAGNESIUM SULFATE-D5W PMX 1 GM in DEXTROSE/WATER 1 100ML.BAG IVPB SCH (18:42)
[2024-11-10] MEDS: traZODone HCL 50 MG TAB PO SCH (20:44)
[2024-11-10] MEDS: ACETAMINOPHEN TAB 325 MG TAB PO PRN (20:44)
[2024-11-10 21:32] LABS: Glucose,Whole Blood 135 mg/dL (70-110)
[2024-11-11 06:18] LABS: Glucose,Whole Blood 117 mg/dL (70-110)
[2024-11-11] MEDS: PANTOPRAZOLE 40 MG TABLET PO SCH (06:33)
[2024-11-11] MEDS: ATORVASTATIN 10 MG TAB PO SCH (08:48)
[2024-11-11] MEDS: CITALOPRAM HYDROBROMIDE 20 MG TAB PO SCH (08:48)
[2024-11-11] MEDS: ENOXAPARIN 40 MG/0.4 ML SYRINGE SQ SCH (08:48)
[2024-11-11 09:41] LABS: BUN/Creat Ratio 25.43 Ratio (12.00-20.00); Blood Urea Nitrogen 35.6 mg/dL (9.0-27.0); Calcium 8.7 mg/dL (8.7-10.3); Carbon Dioxide 25.6 mmol/L (21.6-31.8); Chloride 95 mmol/L (96-109); Glucose 103 mg/dL (70-110); Magnesium 2.6 mg/dL (1.5-2.4); Potassium 3.3 mmol/L (3.5-5.5); Sodium 131 mmol/L (135-145)
[2024-11-11 09:50] LABS: HCT 31.9 % (39.6-50.0); MCHC 34.5 g/dL (32.0-37.0); MCV 101.6 FL (80.0-97.0); Mean Platelet Volume 9.5 FL (9.5-12.2); NRBC Per 100 WBC 0 X 10*3/uL (0.00-0.01); Platelet Count 244 X 10*3/uL (140-440); RBC 3.14 X 10*6/uL (4.40-5.60); RDW 12.5 % (11.5-14.5)
[2024-11-11 11:42] LABS: Glucose,Whole Blood 132 mg/dL (70-110)
--- NOTE | 2024-11-11 12:27 | P.PN ---
Subjective Progress Note Date: 11/11/24 Principal diagnosis: Hospital course: Patient is a 63 year old male with past medical history of congestive heart failure, COPD, diabetes mellitus, hyperlipidemia, hypertension presented to the ED after a fall and with generalized weakness. Patient reports sustaining a fall five days ago. He endorses pain on his right shoulder from the fall. He denies hitting his head or losing consciousness. He mentions having multiple falls in the past and he did hit his head previous time s. Associated with that he experiences generalized weakness and poor oral intake for over a year now. He mentions that he had been trying to lose weight which is why he decreased his oral intake but hasn't seen a lot of change in his weight. He also admits to drinking a pint a day of alcohol and is a current everyday smoker. He states that he quit drinking 2 months ago but according to ED documentation the family reports that he has been drinking in the past couple days. Denies fever, chills, shortness of breath, cough, chest pain, palpitations, abdominal pain, nausea, vomiting, hematuria, dysuria, hematochezia, melena, headache, slurred speech, numbness, tingling, dizziness, lightheadedness. ED documentation reviewed. In the ED patient was treated with hydromorphone 0.5 mg, ketorolac 40 mg, magnesium sulfate, potassium chloride, 0.9 normal saline. Vitals on admission T 97.4 F, MD 56 bpm, RR 16, BP 116/76, oxygen saturation 98% on room air EKG independently interpreted as sinus bradycardia, T wave inversion in leads V1-6 rate 53 bpm, QTc 449 ms Chest x-ray shows mild cardiomegaly and COPD, focal patchy atelectasis versus infiltrate at the periphery of the left base Shoulder x-ray shows acute comminuted displaced fracture through the distal aspect of the right clavicle extending into the acromioclavicular joint, glenohumeral joint is maintained Head and cervical spine CT shows no acute bleed or mass effect/no acute trauma/no change near complete opacification of the left maxillary sinus indicating marked sinusitis Labs on admission show hemoglobin 13.1, APTT 21.4, sodium 124, potassium 2.9, magnesium 1.4, bicarb 29, anion gap 15, BUN 73, creatinine 2.90, total bilirubin 1.8, ALP 239 Troponin I <0.012 UA shows 1+ protein Serum alcohol less than 10 Respiratory panel is negative 11/11/24: Patient is seen and examined at bedside today. He is currently on 2L of oxygen via nasal cannula and is saturating at 100%. Labs today show hemoglobin 1 1, sodium 131, potassium 3.3, creatinine 1.4 magnesium 2.6, A1c 5.4. Review of systems: Pertinent positives and negatives as discussed in HPI, a complete review of systems was performed and all other systems are negative. Vitals: Signs Reviewed Physical examination: Vital signs reviewed General: nontoxic, no distress, appears at stated age Derm: warm, dry, intact Head: atraumatic, normocephalic, symmetric Eyes: EOMI, anicteric sclera Mouth: no lip lesion, mucus membranes moist Cardiovascular: S1 S2 reg, no murmur Lungs: CTA bilateral, no rhonchi, no rales, no accessory muscle use Abdominal: soft, non-tender to palpation Extremities: Venous stasis dermatitis b/l LE Neuro: Alert, Oriented, Gross neurological examination did not reveal any focal deficits. Psych: well appearing, appropriate affect Assessment/Plan: Patient is a 63 year old male with past medical history of congestive heart failure, COPD, diabetes mellitus, hyperlipidemia, hypertension presented to the ED after a fall and with generalized weakness. He has been admitted for LUIS ANTONIO and generalized weakness due to poor oral intake and electrolyte abnormalities. Orthopedic surgery recommend closed treatment, with sling for comfort and immobilization. Patient is awaiting PT and OT evaluation. Active: #. Acute comminuted displaced clavicle fracture Shoulder x-ray shows acute comminuted displaced fracture through the distal aspect of the right clavicle extending into the acromioclavicular joint, glenohumeral joint is maintained Closed treatment, with sling for comfort and immobilization Orthopedic surgery consulted, recommend follow up in 10-14 days for repeat X- rays and evaluation with Dr. Milton Dumont #. LUIS ANTONIO #. Hyponatremia, Beer potomania #. Generalized weakness, secondary to poor oral intake and electrolyte abnormalities Creatinine 2.93 on admission, creatinine today 1.4 Continue 0.9 normal saline at 130 ml/hr Monitor BMP Nephrology consulted #. Hypomagnesemia, resolved #. Hypokalemia Potassium chloride 40 meq PO once #. Alcohol withdrawal Lorazepam 1 mg p.o. every 4 hours as needed (CIWA 6-7), lorazepam 0.5 mg p.o. every 4 hours as needed (CIWA 4-5), lorazepam 2 mg p.o. every 2 hours as needed (CIWA 10 or greater) Chronic: #. Non insulin dependent Diabetes mellitus #. Anxiety #. Hyperlipidemia Insulin sliding scale and ACHS blood glucose monitoring Continue citalopram 20 mg p.o. daily, trazodone 50 mg p.o. at bedtime, atorvastatin 10 mg p.o. daily F: 0.9 normal saline at 130 mL/h E: Replete sodium and potassium N: Regular diet DVT prophylaxis: Lovenox 40 mg SQ daily GI prophylaxis: Pantoprazole 40 mg PO daily Objective - Vital Signs Vital signs: Vital Signs Temp 97.5 F L 11/11/24 08:05 Pulse 96 11/11/24 08:05 Resp 16 11/11/24 08:05 BP 111/71 11/11/24 08:05 Pulse Ox 100 11/11/24 08:05 FiO2 Intake & Output 11/10/24 11/11/24 11/11/24 18:59 06:59 18:59 Intake Total 2000 Output Total 800 1625 Balance -800 375 Intake: Intake, IV Titration 2000 Amount Magnesium Sulfate-D5w Pmx 700 1 gm In Dextrose/Water 1 100ml.bag @ 100 mls/hr IVPB Q1H [facility] Rx#: [id number] Sodium Chloride 0.9% 1, 1300 000 ml @ 130 mls/hr IV . [id number] [facility] Rx#:[id number] Output: Urine 800 1625 Other: Voiding Method Urinal - Labs CBC & Chem 7: 11/11/24 06:00 11/11/24 06:00 Labs: Abnormal Lab Results - Last 24 Hours (Table) 11/10/24 11/10/24 11/10/24 Range/Units 07:52 11:46 16:42 Sodium 129 L (137-145) mmol/L Chloride 92 L (98-107) mmol/L BUN 59 H (9-20) mg/dL Creatinine 2.03 H (0.66-1.25) mg/dL POC Glucose (mg/dL) 112 H 124 H (70-110) mg/dL Alkaline Phosphatase 227 H (38-126) U/L Total Protein 6.1 L (6.3-8.2) g/dL 11/10/24 11/11/24 Range/Units 21:31 06:16 Sodium (137-145) mmol/L Chloride (98-107) mmol/L BUN (9-20) mg/dL Creatinine (0.66-1.25) mg/dL POC Glucose (mg/dL) 135 H 117 H (70-110) mg/dL Alkaline Phosphatase (38-126) U/L Total Protein (6.3-8.2) g/dL
[2024-11-11] MEDS: POTASSIUM CHLORIDE ER 20 MEQ TAB.ER PO STA (13:00)
--- NOTE | 2024-11-11 13:53 | P.NPCON ---
History of Present Illness - Reason for Consult hyponatremia - History of Present Illness Patient is a 63-year-old male with history of COPD, diabetes, CHF who is admitted to the hospital with history of fall and generalized weakness. Noted to have a serum sodium no previous history of of 124. Patient has been on normal saline and sodium has improved to 131 today. Serum creatinine was 2.9 and it is decreased to 1.4 today. No previous history of kidney diseases or hyponatremia. Blood pressure was low with systolic in the 70s, currently improved with IV fluid resuscitation. Patient is voiding. 1.6 L of urine documented for 24 hours. Patient was maintained on Cozaar and Bumex at home which is currently on hold. Past Medical History Past Medical History: Heart Failure, COPD, Diabetes Mellitus, Eye Disorder, Hyperlipidemia, Hypertension Additional Past Medical History / Comment(s): Bilateral lower extremity cellulitis. alcoholism History of Any Multi-Drug Resistant Organisms: None Reported Past Surgical History: Back Surgery Additional Past Surgical History / Comment(s): 3 back surgeries, left and right cataract Past Anesthesia/Blood Transfusion Reactions: Previous Problems w/ Anesthesia Additional Past Anesthesia/Blood Transfusion Reaction / Comment(s): diff. to wake up one time with back surgery Past Psychological History: Depression Smoking Status: Current every day smoker Past Alcohol Use History: Heavy Additional Past Alcohol Use History / Comment(s): has smoked 1ppd for about 20 years; quit for 4 weeks in Nov. but started again Past Drug Use History: Marijuana - Past Family History Mother Family Medical History: No Reported History Medications and Allergies Home Medications Medication Instructions Recorded Confirmed Type Bisoprolol-Hctz 10-6.25 mg [Ziac 1 tab PO DAILY 12/12/17 11/09/24 History 10-6.25 MG] Citalopram Hydrobromide [CeleXA] 20 mg PO DAILY 05/30/23 11/09/24 History Potassium Chloride ER [K-Dur 20] 20 meq PO DAILY 05/30/23 11/09/24 History Rosuvastatin Calcium 5 mg PO DAILY 05/30/23 11/09/24 History metFORMIN HCL [Glucophage] 500 mg PO BID-W/MEALS 05/30/23 11/09/24 History traZODone HCL [Desyrel] 50 mg PO HS 07/06/23 11/09/24 History Fluticasone/Umeclidin/Vilanter 1 puff INHALATION RT-DAILY 04/08/24 11/09/24 H istory [Trelegy Ellipta 100-62.5-25] Losartan [Cozaar] 50 mg PO DAILY 04/08/24 11/09/24 History Bumetanide [BUMEX] 1 mg PO BID 11/09/24 11/09/24 History Allergies Allergy/AdvReac Type Severity Reaction Status Date / Time No Known Allergies Allergy Verified 11/09/24 17:30 Physical Exam Vitals: Vital Signs Temp Pulse Resp BP Pulse Ox 11/11/24 08:05 97.5 F L 96 16 111/71 100 11/11/24 02:39 98.5 F 51 L 15 121/77 100 11/10/24 20:25 97.2 F L 60 18 100/61 93 L 11/10/24 14:11 97.4 F L 55 L 16 117/64 99 Intake and Output 11/10/24 11/11/24 11/11/24 22:59 06:59 14:59 Intake Total 2000 Output Total 800 1625 Balance -800 375 Intake: Intake, IV Titration 2000 Amount Magnesium Sulfate-D5w Pmx 700 1 gm In Dextrose/Water 1 100ml.bag @ 100 mls/hr IVPB Q1H [facility] Rx#: [id number] Sodium Chloride 0.9% 1, 1300 000 ml @ 130 mls/hr IV . Q7H42M [facility] Rx#:[id number] Output: Urine 800 1625 Patient is awake, comfortable, no acute distress. Examination of the heart S1 and S2 Examination of the lungs bilateral breath sounds are heard Abdomen is soft nontender Examination of lower extremities shows no significant edema ROUND UP RING HAND exam grossly intact Results - Lab Results Most recent lab results Calcium 8.7 mg/dL (8.7-10.3) 11/11/24 06:00 Magnesium 2.6 mg/dL (1.5-2.4) H 11/11/24 06:00 11/11/24 06:00 11/11/24 06:00 Assessment and Plan Assessment: 1. Acute kidney injury associated with severe volume depletion and hypotension, ATN nonoliguric and improved. UA is quite benign 2. Hypovolemic hyponatremia, improved. 3. Hypokalemia associated with decreased oral intake and diuretics status post replacement 4. History of hypertension Plan: Continue with normal saline Check random cortisol level Continue to replace potassium Repeat labs in a.m. Thank you for the consultation. We will continue to follow the patient with you during his hospitalization.
[2024-11-11 16:50] LABS: Glucose,Whole Blood 152 mg/dL (70-110)
[2024-11-11 20:32] LABS: Glucose,Whole Blood 121 mg/dL (70-110)
[2024-11-12 06:13] LABS: Glucose,Whole Blood 99 mg/dL (70-110)
[2024-11-12 08:46] LABS: BUN/Creat Ratio 17.82 Ratio (12.00-20.00); Blood Urea Nitrogen 19.6 mg/dL (9.0-27.0); Calcium 8.5 mg/dL (8.7-10.3); Carbon Dioxide 22.8 mmol/L (21.6-31.8); Chloride 101 mmol/L (96-109); Glucose 86 mg/dL (70-110); Potassium 3.7 mmol/L (3.5-5.5); Sodium 134 mmol/L (135-145)
[2024-11-12 09:34] LABS: HCT 32.5 % (39.6-50.0); HGB 10.6 g/dL (13.0-17.0); MCH 34.3 pg (27.0-32.0); MCHC 32.6 g/dL (32.0-37.0); MCV 105.2 FL (80.0-97.0); Mean Platelet Volume 10.2 FL (9.5-12.2); NRBC Per 100 WBC 0 X 10*3/uL (0.00-0.01); Platelet Count 250 X 10*3/uL (140-440); RBC 3.09 X 10*6/uL (4.40-5.60); RDW 12.6 % (11.5-14.5); WBC 6.75 X 10*3/uL (4.50-10.00)
[2024-11-12] MEDS: POTASSIUM CHLORIDE ER 20 MEQ TAB.ER PO STA (10:30)
[2024-11-12 11:08] LABS: Glucose,Whole Blood 143 mg/dL (70-110)
[2024-11-12] MEDS ORDERED: ZINC OXIDE PASTE (Z-GUARD) 1 APPLIC TOPICAL PRN (12:25)
--- NOTE | 2024-11-12 12:42 | P.DS ---
Providers Date of admission: 11/09/24 17:27 Expected date of discharge: 11/12/24 Attending physician: Heron Haley Consults: 11/09/24 17:28 Consult Physician Urgent Consulting Provider: Milton Dumont Consult Reason/Comments: Clavicle fracture Do you want consulting provider notified?: Yes 11/11/24 08:46 Consult Physician Routine Consulting Provider: Judi Ireland Consult Reason/Comments: LUIS ANTONIO Do you want consulting provider notified?: Yes Primary care physician: Christiano Alaniz Hospital Course: Discharge diagnosis: Acute comminuted displaced clavicle fracture LUIS ANTONIO, due to severe volume depletion and hypotension, improved Hyponatremia, Beer potomania Generalized weakness, secondary to poor oral intake and electrolyte abnormalities Hypomagnesemia, resolved Hypokalemia Alcohol withdrawal Non insulin dependent Diabetes mellitus Anxiety Hyperlipidemia Hospital Course: Patient is a 63 year old male with past medical history of congestive heart failure, COPD, diabetes mellitus, hyperlipidemia, hypertension presented to the ED after a fall and with generalized weakness. Patient reports sustaining a fall five days ago. He endorses pain on his right shoulder from the fall. He denies hitting his head or losing consciousness. He mentions having multiple falls in the past and he did hit his head previous times. Associated with that he experiences generalized weakness and poor oral intake for over a year now. He mentions that he had been trying to lose weight which is why he decreased his oral intake but hasn't seen a lot of change in his weight. He also admits to drinking a pint a day of alcohol and is a current everyday smoker. He states that he quit drinking 2 months ago but according to ED documentation the family reports that he has been drinking in the past couple days. Denies fever, chills, shortness of breath, cough, chest pain, palpitations, abdominal pain, nausea, vomiting, hematuria, dysuria, hematochezia, melena, headache, slurred speech, numbness, tingling, dizziness, lightheadedness. ED documentation reviewed. In the ED patient was treated with hydromorphone 0.5 mg, ketorolac 40 mg, magnesium sulfate, potassium chloride, 0.9 normal saline. Vitals on admission T 97.4 F, NE 56 bpm, RR 16, BP 116/76, oxygen saturation 98% on room air. EKG independently interpreted as sinus bradycardia, T wave inversion in leads V1-6 rate 53 bpm, QTc 449 ms. Chest x-ray shows mild cardiomegaly and COPD, focal patchy atelectasis versus infiltrate at the periphery of the left base. Shoulder x-ray shows acute comminuted displaced fracture through the distal aspect of the right clavicle extending into the acromioclavicular joint, glenohumeral joint is maintained. Head and cervical spine CT shows no acute bleed or mass effect/no acute trauma/no change near complete opacification of the left maxillary sinus indicating marked sinusitis. Labs on admission show hemoglobin 13.1, APTT 21.4, sodium 124, potassium 2.9, magnesium 1.4, bicarb 29, anion gap 15, BUN 73, creatinine 2.90, total bilirubin 1.8, ALP 239. Troponin I <0.012. UA shows 1+ protein. Serum alcohol less than 10. Respiratory panel is negative. 11/11/24: Patient is seen and examined at bedside today. He is currently on 2L of oxygen via nasal cannula and is saturating at 100%. Labs today show hemoglobin 11, sodium 131, potassium 3.3, creatinine 1.4 magnesium 2.6, A1c 5.4. 11/12/24: Patient evaluated at bedside. Vital signs are stable. Labs today show hemoglobin 10.6, sodium 134, potassium 3.7. Patient seen at bedside today and is feeling good and excited about discharge. Patient will be discharged today and his blood pressure medications are held for now due to hypotension and LUIS ANTONIO. Restart antihypertensives on outpatient basis. Patient is advised to be compliant with medications. Patient is advised to follow-up with PCP in 1-2 days and orthopedic surgeon in 2 weeks. Vital signs are reviewed and stable General: nontoxic, no distress, appears at stated age Derm: warm, dry, intact Head: atraumatic, normocephalic, symmetric Eyes: EOMI, anicteric sclera Mouth: no lip lesion, mucus membranes moist Cardiovascular: S1 S2 reg, no murmur Lungs: CTA bilateral, no rhonchi, no rales, no accessory muscle use Abdominal: soft, non-tender to palpation Extremities: Venous stasis dermatitis b/l LE, right arm in a sling Neuro: Alert, Oriented, Gross neurological examination did not reveal any focal deficits. Psych: well appearing, appropriate affect A total of 30 minutes of time were spent preparing this complex discharge summary. Patient was discharged on 11/12/24 at 1245. Patient Condition at Discharge: Stable Plan - Discharge Summary Discharge Rx Participant: No New Discharge Prescriptions: No Action Bisoprolol-Hctz 10-6.25 mg [Ziac 10-6.25 MG] 1 tab PO DAILY Citalopram Hydrobromide [CeleXA] 20 mg PO DAILY metFORMIN HCL [Glucophage] 500 mg PO BID-W/MEALS Potassium Chloride ER [K-Dur 20] 20 meq PO DAILY Rosuvastatin Calcium 5 mg PO DAILY traZODone HCL [Desyrel] 50 mg PO HS Losartan [Cozaar] 50 mg PO DAILY Fluticasone/Umeclidin/Vilanter [Trelegy Ellipta 100-62.5-25] 1 puff INHALATION RT-DAILY Bumetanide [BUMEX] 1 mg PO BID Discharge Medication List Bisoprolol-Hctz 10-6.25 mg [Ziac 10-6.25 MG] 1 tab PO DAILY 12/12/17 [History] Citalopram Hydrobromide [CeleXA] 20 mg PO DAILY 05/30/23 [History] Potassium Chloride ER [K-Dur 20] 20 meq PO DAILY 05/30/23 [History] Rosuvastatin Calcium 5 mg PO DAILY 05/30/23 [History] metFORMIN HCL [Glucophage] 500 mg PO BID-W/MEALS 05/30/23 [History] traZODone HCL [Desyrel] 50 mg PO HS 07/06/23 [History] Fluticasone/Umeclidin/Vilanter [Trelegy Ellipta 100-62.5-25] 1 puff INHALATION RT-DAILY 04/08/24 [History] Losartan [Cozaar] 50 mg PO DAILY 04/08/24 [History] Bumetanide [BUMEX] 1 mg PO BID 11/09/24 [History] Follow up Appointment(s)/Referral(s): Christiano Alaniz MD [Primary Care Provider] - 1-2 days
[2024-11-12 14:23] VITALS: BP 149/86; PULSE 71; RESP 17; TEMP 98
--- NOTE | 2024-11-12 21:04 | P.PN ---
Subjective Patient is seen for follow-up for acute kidney injury. Renal function has improved. Serum creatinine down to 1.1 mg/dL. No significant complaints. Objective - Vital Signs Vital signs: Vital Signs Temp 98.0 F 11/12/24 14:00 Pulse 71 11/12/24 14:00 Resp 17 11/12/24 14:00 BP 149/86 11/12/24 14:00 Pulse Ox 97 11/12/24 14:00 FiO2 Intake & Output 11/12/24 11/12/24 11/13/24 06:59 18:59 06:59 Intake Total 1680 Balance 1680 Intake: Intake, IV Titration 1560 Amount Sodium Chloride 0.9% 1, 1560 000 ml @ 130 mls/hr IV . Q7H42M [facility] Rx#:[id number] Oral 120 Other: # Voids 3 2 # Bowel Movements 2 - Exam Patient is awake, comfortable, no acute distress Examination of the heart S1 and S2 Examination of the lungs bilateral breath sounds are heard Abdomen is soft nontender Examination of lower extremities shows no significant edema. - Labs CBC & Chem 7: 11/12/24 05:55 11/12/24 05:55 Labs: Abnormal Lab Results - Last 24 Hours (Table) 11/12/24 11/12/24 11/12/24 Range/Units 05:55 05:55 11:07 RBC 3.09 L (4.40-5.60) X 10*6/uL Hgb 10.6 L (13.0-17.0) g/dL Hct 32.5 L (39.6-50.0) % MCV 105.2 H (80.0-97.0) FL MCH 34.3 H (27.0-32.0) pg Sodium 134 L (135-145) mmol/L POC Glucose (mg/dL) 143 H (70-110) mg/dL Calcium 8.5 L (8.7-10.3) mg/dL Assessment and Plan Assessment: 1. Acute kidney injury associated with severe volume depletion and hypotension, ATN nonoliguric and improved. UA is quite benign 2. Hypovolemic hyponatremia, improved. 3. Hypokalemia associated with decreased oral intake and diuretics status post replacement 4. History of hypertension Plan: Encourage increase oral intake May continue IV fluids until discharge
== END 2024-11-12 15:10 | DRG 683 ==
LOC: EC 12:21 → 4SSUR 17:27
PROVIDERS: ADMIT Hospitalist; ATTEND Hospitalist
DX: N17.0 Acute kidney failure with tubular necrosis (principal); E87.1 Hypo-osmolality and hyponatremia; F10.239 Alcohol dependence with withdrawal, unspecified; E11.9 Type 2 diabetes mellitus without complications; E78.5 Hyperlipidemia, unspecified; F17.200 Nicotine dependence, unspecified, uncomplicated; F32.A Depression, unspecified; F41.9 Anxiety disorder, unspecified; S42.031A Displaced fracture of lateral end of right clavicle, initial encounter for closed fracture; W19.XXXA Unspecified fall, initial encounter; I11.0 Hypertensive heart disease with heart failure; I50.9 Heart failure, unspecified; J44.9 Chronic obstructive pulmonary disease, unspecified; E83.42 Hypomagnesemia; E86.1 Hypovolemia; E87.6 Hypokalemia; Z60.2 Problems related to living alone; R29.6 Repeated falls; Z79.84 Long term (current) use of oral hypoglycemic drugs; Z79.899 Other long term (current) drug therapy; Z91.81 History of falling
CPT/HCPCS: 36415; 70450; 71045; 71046; 72125; 80048; 80053; 80320; 81001; 82140; 82248; 82533; 83036; 83605; 83735; 83880; 84484; 85025; 85027; 85610; 85730; 87636; 93005; 96361; 96365; 96366; 96367; 96375; 99285